=== PATIENT | male | born 1945 | race Caucasian/White ===

== ENCOUNTER → 2016-10-14 | Outpatient (CLI) | payer BC, MEDICARE ==
[2016-10-14 11:27] LABS: MEAN CORPUSCULAR HEMOGLOBIN 31.4 pg (27.0-33.0); MEAN CORPUSCULAR HGB CONC 32.6 g/dl (32.0-36.5); MEAN CORPUSCULAR VOLUME 96.2 fl (80.0-96.0); RED CELL DISTRIBUTION WIDTH 14.5 % (11.5-14.5); WHITE BLOOD COUNT 6.8 K/mm3 (4.0-10.0)
[2016-10-14 11:44] LABS: ALBUMIN 3.2 GM/DL (3.2-5.2); ALBUMIN/GLOBULIN RATIO 1.14 (1.00-1.93); BILIRUBIN,TOTAL 0.4 MG/DL (0.2-1.0); CALCIUM LEVEL 8.5 MG/DL (8.8-10.2); CREATININE FOR GFR 2.64 MG/DL (0.70-1.30); GLOMERULAR FILTRATION RATE 25.8 (>49); POTASSIUM SERUM 4.7 MEQ/L (3.5-5.1)
== END ==
LOC: M WUC 08:50
PROVIDERS: ATTEND Internal Medicine
DX: D69.6 Thrombocytopenia, unspecified (principal); E11.9 Type 2 diabetes mellitus without complications; E78.00 Pure hypercholesterolemia, unspecified; N18.4 Chronic kidney disease, stage 4 (severe); R97.20 Elevated prostate specific antigen [PSA]

== ENCOUNTER → 2017-05-23 | Outpatient (REF) | payer MEDICARE ==
[2017-05-23 12:46] LABS: ALBUMIN 3.4 GM/DL (3.2-5.2); ALBUMIN/GLOBULIN RATIO 1.17 (1.00-1.93); BILIRUBIN,TOTAL 0.5 MG/DL (0.2-1.0); CALCIUM LEVEL 8.8 MG/DL (8.8-10.2); CREATININE FOR GFR 2.98 MG/DL (0.70-1.30); GLOMERULAR FILTRATION RATE 22.4 (>49); MAGNESIUM LEVEL 1.8 MG/DL (1.8-2.4); POTASSIUM SERUM 4.7 MEQ/L (3.5-5.1); TOTAL PROTEIN 6.3 GM/DL (6.4-8.2)
== END ==
LOC: M SFHCPLAZ 08:10
PROVIDERS: ATTEND Internal Medicine
DX: N18.4 Chronic kidney disease, stage 4 (severe) (principal); E11.3213 Type 2 diabetes mellitus with mild nonproliferative diabetic retinopathy with macular edema, bilateral; I12.9 Hypertensive chronic kidney disease with stage 1 through stage 4 chronic kidney disease, or unspecified chronic kidney disease

== ENCOUNTER 2017-07-25 10:51 | Day surgery (SDC) | payer MEDICARE ==
[~2017-07-25] VITALS: Ht 188 cm; Wt 119.7 kg
[~2017-07-25 10:51] MED LIST: ATOR1TAB21 PO; CALC1CAP31 PO; INSUHUMDS PO; INSULANT SC; LISI20TA PO; NADO20TA PO; PIOG45TA4 PO; ZYLO300T4 PO
[2017-07-25] MEDS ORDERED: NS 1,000 ML IV ONE (11:15)
--- NOTE | 2017-07-25 12:34 | ROOR ---
Patient Name: Yfn Sam Procedure Date: 07/25/2017 12:12 PM Date of : 1945 Age: 71 Room: [facility] Gender: Male Note Status: Finalized Procedure: Upper Endoscopy + Biopsies Indications: Heartburn, Exclusion of Erazo's esophagus Providers: Artur Randolph MD Referring MD: Mekhi Hill MD Requesting Provider: Medicines: Monitored Anesthesia Care Complications: No immediate complications. Procedure: Pre-Anesthesia Assessment: - The heart rate, respiratory rate, oxygen saturations, blood pressure, adequacy of pulmonary ventilation, and response to care were monitored throughout the procedure. The Endoscope was introduced through the mouth, and advanced to the second part of duodenum. The upper GI endoscopy was accomplished without difficulty. The patient tolerated the procedure well. Findings: The Z-line was irregular and was found 35 cm from the incisors. Multiple biopsies were obtained with cold forceps for evaluation to rule out Erazo's Esophagus randomly at the gastroesophageal junction. A medium-sized hiatal hernia was present. Localized moderate inflammation characterized by adherent blood, congestion (edema), erosions, erythema and aphthous ulcerations was found in the gastric antrum. Biopsies were taken with a cold forceps for Helicobacter pylori testing. Diffuse mildly erythematous mucosa and with no stigmata of bleeding was found in the first portion of the duodenum. One medium semi-sessile polyp with no bleeding and no stigmata of recent bleeding was found in the gastric antrum. Biopsies were taken with a cold forceps for histology. The exam was otherwise without abnormality. Impression: - Z-line irregular, 35 cm from the incisors. - Medium-sized hiatal hernia. - Chronic gastritis. Biopsied. - Erythematous duodenopathy. - One gastric polyp. Biopsied. - The examination was otherwise normal. - Multiple biopsies were obtained at the gastroesophageal junction. - The examination was otherwise normal. Recommendation: - Await pathology results. - Discharge patient to home. - Continue present medications. - Await pathology results. - Telephone GI clinic for pathology results in 1 week. - Check Portal Online for Path Results.([email or web address] - Return to referring physician. - The findings and recommendations were discussed with the patient's family. Artur Randolph MD Artur Randolph MD 07/25/2017 12:33:39 PM This report has been signed electronically. Number of Addenda: 0 Note Initiated On: 07/25/2017 12:12 PM Estimated Blood Loss: Estimated blood loss: none.
[2017-07-25] MEDS ORDERED: PROPOFOL 200 MG/20 ML VIAL As Ordered ONE (12:42)
[2017-07-25] MEDS ORDERED: LIDOCAINE 2% INJ 100 MG/5 ML SDV (FOR ANES.) As Ordered ONE (12:42)
--- NOTE | 2017-07-25 13:14 | ROOR ---
Patient Name: Yfn Sam Procedure Date: 07/25/2017 12:12 PM Date of : 1945 Age: 71 Room: [facility] Gender: Male Note Status: Finalized Procedure: Total Colonoscopy to Cecum + Cold + Hot Snare Polypectomy + Hemoclips Indications: Positive Cologuard test Providers: Artur Randolph MD Referring MD: Mekhi Hill MD Requesting Provider: Medicines: Monitored Anesthesia Care Complications: No immediate complications. Procedure: Pre-Anesthesia Assessment: - The heart rate, respiratory rate, oxygen saturations, blood pressure, adequacy of pulmonary ventilation, and response to care were monitored throughout the procedure. The Colonoscope was introduced through the anus and advanced to the cecum, identified by appendiceal orifice and ileocecal valve. The colonoscopy was performed without difficulty. The patient tolerated the procedure well. The quality of the bowel preparation was good. Findings: The perianal and digital rectal examinations were normal. Non-bleeding internal hemorrhoids were found during retroflexion. The hemorrhoids were small and Grade I (internal hemorrhoids that do not prolapse). Scattered small-mouthed diverticula were found in the recto-sigmoid colon, sigmoid colon and descending colon. A small polyp was found at 20 cm proximal to the anus. The polyp was sessile. The polyp was removed with a cold snare. Resection and retrieval were complete. A large polyp was found at 25 cm proximal to the anus. The polyp was semi-sessile. The polyp was removed with a hot snare. Resection and retrieval were complete. To prevent bleeding after the polypectomy, two hemostatic clips were successfully placed (MR conditional). There was no bleeding at the end of the procedure. Multiple sessile polyps were found at 40 cm proximal to the anus. The polyps were medium in size. These polyps were removed with a cold snare. Resection and retrieval were complete. To prevent bleeding after the polypectomy, two hemostatic clips were successfully placed (MR conditional). There was no bleeding at the end of the procedure. Multiple sessile polyps were found in the transverse colon, proximal transverse colon, hepatic flexure and ascending colon. The polyps were small in size. These polyps were removed with a cold snare. Resection and retrieval were complete. To prevent bleeding after the polypectomy, one hemostatic clip was successfully placed (MR conditional). There was no bleeding at the end of the procedure. The exam was otherwise without abnormality on direct and retroflexion views. Impression: - Non-bleeding internal hemorrhoids. - Diverticulosis in the recto-sigmoid colon, in the sigmoid colon and in the descending colon. - One small polyp at 20 cm proximal to the anus, removed with a cold snare. Resected and retrieved. - One large polyp at 25 cm proximal to the anus, removed with a hot snare. Resected and retrieved. Clips (MR conditional) were placed. - Multiple medium polyps at 40 cm proximal to the anus, removed with a cold snare. Resected and retrieved. Clips (MR conditional) were placed. - Multiple small polyps in the transverse colon, in the proximal transverse colon, at the hepatic flexure and in the ascending colon, removed with a cold snare. Resected and retrieved. Clip (MR conditional) was placed. - The examination was otherwise normal on direct and retroflexion views. - The exam was otherwise normal to the cecum. Recommendation: - Patient has a contact number available for emergencies. The signs and symptoms of potential delayed complications were discussed with the patient. Return to normal activities tomorrow. Written discharge instructions were provided to the patient. - Discharge patient to home. - Continue present medications. - Await pathology results. - Telephone GI clinic for pathology results in 1 week. - Check Portal Online for Path Results.([email or web address] - Repeat colonoscopy for surveillance based on pathology results. - The findings and recommendations were discussed with the patient's family. Artur Randolph MD Artur Randolph MD 07/25/2017 1:13:33 PM This report has been signed electronically. Number of Addenda: 0 Note Initiated On: 07/25/2017 12:12 PM Estimated Blood Loss: Estimated blood loss: none.
[2017-07-25 13:37] VITALS: BP 122/76
== END 2017-07-25 13:42 | disposition home or self-care (01) ==
LOC: M OPP 10:51
PROVIDERS: ATTEND Internal Medicine Gastroenterology
DX: R19.5 Other fecal abnormalities (principal); D12.5 Benign neoplasm of sigmoid colon; D12.3 Benign neoplasm of transverse colon; D12.2 Benign neoplasm of ascending colon; K64.0 First degree hemorrhoids; K57.30 Diverticulosis of large intestine without perforation or abscess without bleeding; R12 Heartburn; K22.8 Other specified diseases of esophagus; K44.9 Diaphragmatic hernia without obstruction or gangrene; K31.7 Polyp of stomach and duodenum; K31.89 Other diseases of stomach and duodenum; K29.50 Unspecified chronic gastritis without bleeding; I12.9 Hypertensive chronic kidney disease with stage 1 through stage 4 chronic kidney disease, or unspecified chronic kidney disease; E78.5 Hyperlipidemia, unspecified; E11.9 Type 2 diabetes mellitus without complications; M10.9 Gout, unspecified; K21.9 Gastro-esophageal reflux disease without esophagitis; N18.9 Chronic kidney disease, unspecified; N40.1 Benign prostatic hyperplasia with lower urinary tract symptoms; Z88.0 Allergy status to penicillin; Z88.2 Allergy status to sulfonamides; Z88.1 Allergy status to other antibiotic agents; Z79.4 Long term (current) use of insulin; Z79.899 Other long term (current) drug therapy

== ENCOUNTER → 2017-11-19 | Outpatient (REF) | payer MEDICARE ==
[2017-11-19 13:54] LABS: HEMATOCRIT 41.1 % (42.0-52.0); HEMOGLOBIN 13.5 g/dl (14.0-18.0); MEAN CORPUSCULAR HEMOGLOBIN 31.8 pg (27.0-33.0); MEAN CORPUSCULAR HGB CONC 32.8 g/dl (32.0-36.5); MEAN CORPUSCULAR VOLUME 96.7 fl (80.0-96.0); PLATELET COUNT, AUTOMATED 141 10^3/uL (150-450); RED BLOOD COUNT 4.25 10^6/uL (4.30-6.10); RED CELL DISTRIBUTION WIDTH 13.9 % (11.5-14.5); WHITE BLOOD COUNT 7.7 10^3/uL (4.0-10.0)
[2017-11-19 14:06] LABS: ALBUMIN 3.4 GM/DL (3.2-5.2); ALBUMIN/GLOBULIN RATIO 1.13 (1.00-1.93); ALKALINE PHOSPHATASE 67 U/L (45-117); ALT/SGPT 16 U/L (12-78); ANION GAP 8 MEQ/L (8-16); AST/SGOT 16 U/L (7-37); BILIRUBIN,TOTAL 0.5 MG/DL (0.2-1.0); BLOOD UREA NITROGEN 61 MG/DL (7-18); CALCIUM LEVEL 8.8 MG/DL (8.8-10.2); CARBON DIOXIDE LEVEL 25 MEQ/L (21-32); CHLORIDE LEVEL 111 MEQ/L (98-107); CHOLESTEROL LEVEL 132 MG/DL (<200); CHOLESTEROL RISK RATIO 3.882 (<5); CREATININE FOR GFR 2.82 MG/DL (0.70-1.30); GLOMERULAR FILTRATION RATE 23.8 (>42); GLUCOSE, FASTING 83 MG/DL (70-100); HDL CHOLESTEROL 34 MG/DL (>40); LDL CHOLESTEROL 76.8 MG/DL (<100); MAGNESIUM LEVEL 2.1 MG/DL (1.8-2.4); NON-HDL-C 98 MG/DL; SODIUM LEVEL 144 MEQ/L (136-145); TOTAL PROTEIN 6.4 GM/DL (6.4-8.2); TRIGLYCERIDES LEVEL 106 MG/DL (<150); URIC ACID 6.6 MG/DL (3.5-7.2)
[2017-11-19 14:09] LABS: ESTIMATED AVERAGE GLUCOSE 148 MG/DL (60-110); HEMOGLOBIN A1c 6.8 %
[2017-11-19 14:11] LABS: PTH INTACT 71.9 PG/ML (18.5-88.0)
[2017-11-19 14:21] LABS: POTASSIUM SERUM 5.2 MEQ/L (3.5-5.1)
== END ==
LOC: M SFHCPLAZ 08:58
DX: D69.6 Thrombocytopenia, unspecified (principal); E11.3213 Type 2 diabetes mellitus with mild nonproliferative diabetic retinopathy with macular edema, bilateral; E78.00 Pure hypercholesterolemia, unspecified; I12.9 Hypertensive chronic kidney disease with stage 1 through stage 4 chronic kidney disease, or unspecified chronic kidney disease; N18.4 Chronic kidney disease, stage 4 (severe); M10.9 Gout, unspecified
CPT/HCPCS: 83735

== ENCOUNTER → 2018-05-22 | Outpatient (REF) | payer MEDICARE ==
[2018-05-22 10:34] LABS: HEMATOCRIT 43.9 % (42.0-52.0); HEMOGLOBIN 13.9 g/dl (13.5-17.5); MEAN CORPUSCULAR HEMOGLOBIN 31.2 pg (27.0-33.0); MEAN CORPUSCULAR HGB CONC 31.7 g/dl (32.0-36.5); MEAN CORPUSCULAR VOLUME 98.7 fl (80.0-96.0); PLATELET COUNT, AUTOMATED 132 10^3/uL (150-450); RED BLOOD COUNT 4.45 10^6/uL (4.30-6.10)
[2018-05-22 11:02] LABS: ALBUMIN 3.7 GM/DL (3.2-5.2); ALBUMIN/GLOBULIN RATIO 1.23 (1.00-1.93); ALKALINE PHOSPHATASE 64 U/L (45-117); ALT/SGPT 19 U/L (12-78); ANION GAP 7 MEQ/L (8-16); AST/SGOT 26 U/L (7-37); BILIRUBIN,TOTAL 0.5 MG/DL (0.2-1.0); BLOOD UREA NITROGEN 52 MG/DL (7-18); CALCIUM LEVEL 9.1 MG/DL (8.8-10.2); CARBON DIOXIDE LEVEL 27 MEQ/L (21-32); CHLORIDE LEVEL 111 MEQ/L (98-107); CHOLESTEROL LEVEL 146 MG/DL (<200); CHOLESTEROL RISK RATIO 3.842 (<5); CREATININE FOR GFR 2.87 MG/DL (0.70-1.30); GLOMERULAR FILTRATION RATE 23.3 (>42); GLUCOSE, FASTING 56 MG/DL (70-100); HDL CHOLESTEROL 38 MG/DL (>40); LDL CHOLESTEROL 91 MG/DL (<100); MAGNESIUM LEVEL 1.9 MG/DL (1.8-2.4); NON-HDL-C 108 MG/DL; POTASSIUM SERUM 5.3 MEQ/L (3.5-5.1); PROSTATIC SPECIFIC AG MONITOR 5.41 NG/ML (< 4.0); SODIUM LEVEL 145 MEQ/L (136-145); TOTAL PROTEIN 6.7 GM/DL (6.4-8.2); TRIGLYCERIDES LEVEL 84 MG/DL (<150)
[2018-05-22 11:03] LABS: PTH INTACT 72.9 PG/ML (18.5-88.0)
[2018-05-22 11:08] LABS: ESTIMATED AVERAGE GLUCOSE 131 MG/DL (60-110); HEMOGLOBIN A1c 6.2 %
== END ==
LOC: M SFHCPLAZ 08:14
DX: D69.6 Thrombocytopenia, unspecified (principal); E11.3213 Type 2 diabetes mellitus with mild nonproliferative diabetic retinopathy with macular edema, bilateral; E78.00 Pure hypercholesterolemia, unspecified; N18.4 Chronic kidney disease, stage 4 (severe)
CPT/HCPCS: 83735

== ENCOUNTER → 2018-06-14 | Outpatient (REF) | payer MEDICARE ==
[2018-06-14 12:29] LABS: PROSTATIC SPECIFIC AG MONITOR 4.63 NG/ML (< 4.0)
== END ==
LOC: M SFHCPLAZ 09:14
DX: R97.20 Elevated prostate specific antigen [PSA] (principal)
CPT/HCPCS: 84153

== ENCOUNTER 2018-07-17 07:15 | Day surgery (SDC) | payer MEDICARE ==
[2018-07-17] MEDS: NS 1,000 ML IV (06:00)
[2018-07-17] MEDS ORDERED: PROPOFOL 500 MG/50 ML VIAL As Ordered (07:40)
[2018-07-17] MEDS ORDERED: LIDOCAINE 2% INJ 100 MG/5 ML SDV (FOR ANES.) As Ordered (07:41)
[2018-07-17] MEDS ORDERED: ePHEDrine SULFATE 25 MG/5 ML(5MG/ML) SYRINGE As Ordered (09:04)
== END 2018-07-17 09:54 | disposition home or self-care (01) ==
LOC: M OPP 07:15
DX: Z86.010 Personal history of colon polyps (principal); K64.0 First degree hemorrhoids; D12.2 Benign neoplasm of ascending colon; D12.6 Benign neoplasm of colon, unspecified; R12 Heartburn; K22.70 Barrett's esophagus without dysplasia; K22.8 Other specified diseases of esophagus; K44.9 Diaphragmatic hernia without obstruction or gangrene; K22.10 Ulcer of esophagus without bleeding
CPT/HCPCS: 45385

== ENCOUNTER → 2018-11-19 | Outpatient (REF) | payer MEDICARE ==
[~2018-11-19] MED LIST changes: +FINA5TAB2 PO; -INSUHUMDS PO; +INSUHUMDS SQ; +PIOG1TAB55 PO; -PIOG45TA4 PO; +PROT20TA11 PO; -ZYLO300T4 PO; +ZYLO300T6 PO
[2018-11-19 10:36] LABS: HEMATOCRIT 40.6 % (42.0-52.0); MEAN CORPUSCULAR VOLUME 96.9 fl (80.0-96.0); PLATELET COUNT, AUTOMATED 131 10^3/uL (150-450); RED BLOOD COUNT 4.19 10^6/uL (4.30-6.10); WHITE BLOOD COUNT 6.7 10^3/uL (4.0-10.0)
[2018-11-19 10:59] LABS: HEMOGLOBIN A1c 6.2 %
[2018-11-19 11:14] LABS: MALB URINE SIEMENS 11.8 MG/L; MAU/CREAT RATIO 11.2 MCG/MG (0.0-30.0)
[2018-11-19 12:37] LABS: ALBUMIN 3.3 GM/DL (3.2-5.2); BILIRUBIN,TOTAL 0.5 MG/DL (0.2-1.0); CALCIUM LEVEL 8.7 MG/DL (8.8-10.2); CHOLESTEROL RISK RATIO 3.916 (<5); CREATININE FOR GFR 3.41 MG/DL (0.70-1.30); MAGNESIUM LEVEL 1.6 MG/DL (1.8-2.4); POTASSIUM SERUM 4.6 MEQ/L (3.5-5.1); PROSTATIC SPECIFIC AG MONITOR 2.82 NG/ML (< 4.00); PTH INTACT 68.5 PG/ML (18.5-88.0); TOTAL PROTEIN 6.3 GM/DL (6.4-8.2); URIC ACID 7.3 MG/DL (3.5-7.2)
== END ==
LOC: M SFHCPLAZ 08:02
PROVIDERS: ATTEND Internal Medicine
DX: D69.6 Thrombocytopenia, unspecified (principal); I12.9 Hypertensive chronic kidney disease with stage 1 through stage 4 chronic kidney disease, or unspecified chronic kidney disease; E11.3213 Type 2 diabetes mellitus with mild nonproliferative diabetic retinopathy with macular edema, bilateral; E78.00 Pure hypercholesterolemia, unspecified; N18.4 Chronic kidney disease, stage 4 (severe); M10.9 Gout, unspecified; R97.20 Elevated prostate specific antigen [PSA]

== ENCOUNTER → 2018-12-27 | Outpatient (REF) | payer MEDICARE ==
[2018-12-27 10:41] LABS: ALBUMIN 3.3 GM/DL (3.2-5.2); BILIRUBIN,TOTAL 0.5 MG/DL (0.2-1.0); CALCIUM LEVEL 8.2 MG/DL (8.8-10.2); CREATININE FOR GFR 2.81 MG/DL (0.70-1.30); GLOMERULAR FILTRATION RATE 23.8 (>42); MAGNESIUM LEVEL 1.7 MG/DL (1.8-2.4); POTASSIUM SERUM 4.4 MEQ/L (3.5-5.1); TOTAL PROTEIN 6.3 GM/DL (6.4-8.2)
== END ==
LOC: M SFHCPLAZ 08:19
PROVIDERS: ATTEND Internal Medicine
DX: I12.9 Hypertensive chronic kidney disease with stage 1 through stage 4 chronic kidney disease, or unspecified chronic kidney disease (principal); N18.4 Chronic kidney disease, stage 4 (severe)

== ENCOUNTER → 2019-04-17 | Outpatient (REF) | payer MEDICARE ==
[~2019-04-17] MED LIST changes: -LISI20TA PO; +LISI20TA19 PO
[2019-04-17 11:15] LABS: HEMATOCRIT 37.8 % (42.0-52.0); HEMOGLOBIN 12.1 g/dl (13.5-17.5); MEAN CORPUSCULAR HEMOGLOBIN 32.1 pg (27.0-33.0); MEAN CORPUSCULAR VOLUME 100.3 fl (80.0-96.0); PLATELET COUNT, AUTOMATED 116 10^3/uL (150-450); RED BLOOD COUNT 3.77 10^6/uL (4.30-6.10); WHITE BLOOD COUNT 6.4 10^3/uL (4.0-10.0)
[2019-04-17 11:36] LABS: PROSTATIC SPECIFIC AG MONITOR 1.47 NG/ML (< 4.00); URIC ACID 5.4 MG/DL (3.5-7.2)
[2019-04-17 11:42] LABS: PTH INTACT 71.7 PG/ML (18.5-88.0)
[2019-04-17 14:38] LABS: HEMOGLOBIN A1c 6.1 %
[2019-04-18 10:54] LABS: ALBUMIN 3.5 GM/DL (3.2-5.2); BILIRUBIN,TOTAL 0.5 MG/DL (0.2-1.0); CREATININE FOR GFR 2.69 MG/DL (0.70-1.30); POTASSIUM SERUM 5.4 MEQ/L (3.5-5.1); TOTAL PROTEIN 6.3 GM/DL (6.4-8.2)
== END ==
LOC: M SFHCPLAZ 08:24
PROVIDERS: ATTEND Internal Medicine
DX: D69.6 Thrombocytopenia, unspecified (principal); E11.3213 Type 2 diabetes mellitus with mild nonproliferative diabetic retinopathy with macular edema, bilateral; N18.4 Chronic kidney disease, stage 4 (severe); M10.9 Gout, unspecified; R97.20 Elevated prostate specific antigen [PSA]

== ENCOUNTER → 2019-05-01 | Outpatient (CLI) | payer MEDICARE ==
--- NOTE | 2019-05-01 13:48 | REP ---
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 Please evaluate for this by MRCP. No comparison imaging is available. MRCP technique: Axial and coronal T2-weighted scans are acquired. In and out of phase axial images are acquired and MRCP acquisition is performed. Maximal intensity projection images are generated and viewed rotationally. MRCP findings: T2-weighted scans demonstrate two small sub-centimeter cysts in the spleen, the largest of which is in the inferior spleen tip measuring 9 mm in diameter. There is a 8 mm cyst in the left lobe of the liver. No other focal hepatic or splenic lesion. There is no evidence of ascites or pleural effusion. No filling defect is seen within the gallbladder. No biliary ductal dilation is observed. No adrenal lesion is seen on either side. There is a branching fluid-filled process consistent with dilated ducts or intraductal mucinous neoplasm in the pancreatic body, to the left of midline. These lobulated small cystic areas show low T1 and high T2 signal intensity. They occupy an area measuring up to 2.5 cm in length along the course of the pancreatic body although each cystic component is smaller than this, the largest of the cystic areas measures 1.3 cm in greatest diameter. There is another tiny cystic area in the uncinate lobe of the head of the pancreas which is less conspicuous and measures 9 mm in greatest diameter. The distal tail of the pancreas is somewhat atrophic. No soft tissue mass is appreciated in the pancreas. There is no visible adenopathy. Some mild cortical atrophy is seen in the kidneys. Impression: There is a small branching fluid signal intensity lesion in the distal body of the pancreas consistent with the history of intraductal papillary mucinous neoplasm seen by endoscopic ultrasound. Measurements as above. There is a second 9 mm cystic area in the uncinate process in the head of the pancreas as well. No soft tissue mass is seen. No biliary ductal dilation. No other pancreatic ductal dilation seen. There are small subcentimeter cysts in the left lobe of the liver and in the spleen. Electronically Signed by Ken De La Rosa MD 05/01/2019 01:41 P
== END ==
LOC: M RAD 10:06
PROVIDERS: ATTEND Internal Medicine Gastroenterology
DX: R93.89 Abnormal findings on diagnostic imaging of other specified body structures (principal)

== ENCOUNTER → 2019-10-13 | Outpatient (CLI) | payer MEDICARE ==
[2019-10-13 12:01] LABS: BASO % 0.6 % (0.0-1.0); EOS # 0.2 10^3/uL (0.0-0.5); EOS % 3.1 % (0.0-3.0); HEMATOCRIT 37.1 % (42.0-52.0); LYMPH % 30.5 % (24.0-44.0); MEAN CORPUSCULAR HEMOGLOBIN 31.5 pg (27.0-33.0); MEAN CORPUSCULAR HGB CONC 32.3 g/dl (32.0-36.5); MEAN CORPUSCULAR VOLUME 97.4 fl (80.0-96.0); MONO # 0.5 10^3/uL (0.0-0.8); MONO % 8.3 % (0.0-5.0); NEUTROPHILS # 3.7 10^3/uL (1.5-8.5); NEUTROPHILS % 57.3 % (36.0-66.0); PLATELET COUNT, AUTOMATED 150 10^3/uL (150-450); RED BLOOD COUNT 3.81 10^6/uL (4.30-6.10); WHITE BLOOD COUNT 6.5 10^3/uL (4.0-10.0)
[2019-10-13 12:28] LABS: ALBUMIN 3.3 GM/DL (3.2-5.2); BILIRUBIN,TOTAL 0.4 MG/DL (0.2-1.0); CALCIUM LEVEL 9.1 MG/DL (8.8-10.2); CHOLESTEROL RISK RATIO 3.945 (<5); CREATININE FOR GFR 2.89 MG/DL (0.70-1.30); MAGNESIUM LEVEL 1.8 MG/DL (1.8-2.4); POTASSIUM SERUM 4.6 MEQ/L (3.5-5.1); PTH INTACT 92.7 PG/ML (18.5-88.0); TOTAL PROTEIN 6.3 GM/DL (6.4-8.2)
[2019-10-13 13:09] LABS: HEMOGLOBIN A1c 6.4 %
== END ==
LOC: M PLALAB 08:41
PROVIDERS: ATTEND Internal Medicine
DX: I12.9 Hypertensive chronic kidney disease with stage 1 through stage 4 chronic kidney disease, or unspecified chronic kidney disease (principal); N18.4 Chronic kidney disease, stage 4 (severe); E11.3213 Type 2 diabetes mellitus with mild nonproliferative diabetic retinopathy with macular edema, bilateral; E78.00 Pure hypercholesterolemia, unspecified; D69.6 Thrombocytopenia, unspecified

== ENCOUNTER → 2020-06-22 | Outpatient (CLI) | payer MEDICARE ==
[~2020-06-22] MED LIST changes: -LISI20TA19 PO; +LISI20TA35 PO
[2020-06-22 15:02] LABS: CREATININE FOR GFR 2.8 MG/DL (0.70-1.30); GLOMERULAR FILTRATION RATE 23.8 (>42); POTASSIUM SERUM 5.6 MEQ/L (3.5-5.1)
[2020-06-22 15:04] LABS: PTH INTACT 78.8 PG/ML (18.5-88.0)
== END ==
LOC: M PLALAB 09:16
PROVIDERS: ATTEND Internal Medicine
DX: I12.9 Hypertensive chronic kidney disease with stage 1 through stage 4 chronic kidney disease, or unspecified chronic kidney disease (principal); N18.4 Chronic kidney disease, stage 4 (severe)

== ENCOUNTER → 2020-11-03 | Outpatient (REF) | payer MEDICARE ==
[2020-11-03 14:05] LABS: BASO # 0.1 10^3/uL (0.0-0.2); BASO % 0.9 % (0.0-1.0); EOS # 0.4 10^3/uL (0.0-0.5); EOS % 6.3 % (0.0-3.0); HEMATOCRIT 36.6 % (42.0-52.0); HEMOGLOBIN 11.7 g/dl (13.5-17.5); LYMPH # 2.1 10^3/uL (1.5-5.0); LYMPH % 29.8 % (24.0-44.0); MEAN CORPUSCULAR HEMOGLOBIN 32.1 pg (27.0-33.0); MEAN CORPUSCULAR VOLUME 100.3 fl (80.0-96.0); MONO # 0.6 10^3/uL (0.0-0.8); MONO % 8.9 % (2.0-8.0); NEUTROPHILS # 3.8 10^3/uL (1.5-8.5); PLATELET COUNT, AUTOMATED 127 10^3/uL (150-450); RED BLOOD COUNT 3.65 10^6/uL (4.30-6.10)
[2020-11-03 14:16] LABS: ALBUMIN 3.2 GM/DL (3.2-5.2); BILIRUBIN,TOTAL 0.4 MG/DL (0.2-1.0); CALCIUM LEVEL 8.8 MG/DL (8.8-10.2); GLOMERULAR FILTRATION RATE 21.9 (>42); MAGNESIUM LEVEL 1.8 MG/DL (1.8-2.4); POTASSIUM SERUM 4.8 MEQ/L (3.5-5.1); PROSTATIC SPECIFIC AG MONITOR 1.61 NG/ML (< 4.00); PTH INTACT 66.1 PG/ML (18.5-88.0); TOTAL PROTEIN 5.8 GM/DL (6.4-8.2)
[2020-11-03 15:01] LABS: CREATININE, URINE 99.7 MG/DL
[2020-11-03 15:26] LABS: HEMOGLOBIN A1c 5.7 %
== END ==
LOC: M PLALAB 08:50
PROVIDERS: ATTEND Internal Medicine
DX: D69.6 Thrombocytopenia, unspecified (principal); I12.9 Hypertensive chronic kidney disease with stage 1 through stage 4 chronic kidney disease, or unspecified chronic kidney disease; E11.3213 Type 2 diabetes mellitus with mild nonproliferative diabetic retinopathy with macular edema, bilateral; E78.00 Pure hypercholesterolemia, unspecified; N18.4 Chronic kidney disease, stage 4 (severe); R97.20 Elevated prostate specific antigen [PSA]

== ENCOUNTER → 2021-01-19 | Outpatient (CLI) | payer MEDICARE ==
[~2021-01-19] MED LIST changes: +ASPI81TA26 PO
== END ==
LOC: M LABSMTC 09:48
PROVIDERS: ATTEND Anesthesiology
DX: Z01.812 Encounter for preprocedural laboratory examination (principal); Z20.828 Contact with and (suspected) exposure to other viral communicable diseases

== ENCOUNTER 2021-01-24 06:24 | Day surgery (SDC) | payer MEDICARE ==
[~2021-01-24] VITALS: Ht 188 cm; Wt 108.9 kg
[2021-01-24] MEDS ORDERED: DUOVISC (0.50ML VISCOAT/0.55ML PROVISC) OPHTH KIT As Ordered ONE (06:36)
[2021-01-24] MEDS ORDERED: POVIDONE-IODINE 5% OPHTH PREP SOL 30ML As Ordered ONE (06:36)
[2021-01-24] MEDS ORDERED: OFLOXACIN 0.3 % (OCUFLOX) OPTH SOL 5ML OD ONE (07:00)
[2021-01-24] MEDS ORDERED: PROPARACAINE 0.5% OPHTH SOL 15ML OD ONE (07:00)
[2021-01-24] MEDS ORDERED: PHENYLEPHRINE 2.5% OPHTH SOL 2ML OD ONE (07:00)
[2021-01-24] MEDS ORDERED: TROPICAMIDE 1% OPHTH SOLN 2ML OD ONE (07:00)
[2021-01-24] MEDS ORDERED: MIDAZOLAM INJ 2MG/2ML VIAL (J2250 PER 1MG) As Ordered ONE (07:09)
[2021-01-24] MEDS ORDERED: fentaNYL 100 MCG/2 ML INJECTION (J3010) As Ordered ONE (07:09)
[2021-01-24] MEDS ORDERED: BSS IRR 500ML/OMIDRIA 4ML IRR BAG (OR ONLY) As Ordered ONE (07:15)
[2021-01-24] MEDS ORDERED: hydrALAZINE 20MG/ML 1ML VIAL (J0360 PER 20MG) As Ordered ONE (08:07)
[2021-01-24 08:40] VITALS: BP 197/88
--- NOTE | 2021-01-25 07:56 | RO ---
OPERATIVE NOTE DATE OF OPERATION: 01/24/2021 PREOPERATIVE DIAGNOSIS: 1. Visually significant nuclear sclerotic cataract, right eye. POSTOPERATIVE DIAGNOSIS: 1. Visually significant nuclear sclerotic cataract, right eye. PROCEDURE: 1. Cataract extraction with use of phacoemulsification, and placement of intraocular lens, AU00T0, 16.5 D, right eye. SURGEON: Bartolo Randolph DO ANESTHESIA: Local (Omidria with MAC) COMPLICATIONS: None POSTOPERATIVE CONDITION: Stable INDICATIONS FOR SURGERY: 1. Blurred vision affecting patient's activities of daily living. DESCRIPTION OF PROCEDURE: The patient was seen in the preoperative area and properly identified. The correct operative eye was identified and marked. The patient received topical anesthetic, antibiotics, and topical dilating drops. The patient was then transferred to the operating room. The correct side was re-identified and a time-out was performed. The eye was prepped and draped in a sterile fashion. The eyelids were isolated with Tegaderm tape and the lids were held open with an adjustable speculum. A 1.0mm paracentesis incision was made. Omidria was then injected into the anterior chamber. Viscoelastic was then injected into the anterior chamber through the paracentesis. Using a 2.4mm sharp-tipped keratome, the anterior chamber was entered via a temporal clear cornea incision. A continuous curvilinear capsulorrhexis was created with Utrata forceps. Hydrodissection was performed with BSS on a blunt cannula until the nucleus was able to rotate freely. The crystalline lens was phacoemulsified and aspirated. Irrigation/aspiration was used to remove the cortical material Cohesive viscoelastic was placed into the capsular bag to deepen it. The implant was placed into the capsular bag and allowed to unfold. Placement was confirmed by visualizing the anterior capsulorrhexis. Irrigation/aspiration was used to remove the viscoelastic. The clear corneal incision was hydrated with BSS on a blunt cannula. The lens was well positioned. Intracameral antibiotic was injected into the anterior chamber. The incisions were then tested for leaks and found to be negative. The eye was then palpated for appropriate pressure and adjusted accordingly with BSS. The eyelid speculum was then carefully removed. A shield was placed over the eye. The patient tolerated the procedure well and was discharge to the recovery unit in a stable condition.
== END 2021-01-24 08:54 | disposition home or self-care (01) ==
LOC: M SDC 06:24
PROVIDERS: ATTEND Ophthalmology
DX: H25.11 Age-related nuclear cataract, right eye (principal); E11.9 Type 2 diabetes mellitus without complications; E78.5 Hyperlipidemia, unspecified; K21.9 Gastro-esophageal reflux disease without esophagitis; Z79.4 Long term (current) use of insulin; Z79.82 Long term (current) use of aspirin; Z88.0 Allergy status to penicillin; Z88.2 Allergy status to sulfonamides
CPT/HCPCS: 66984; J0360; J1097; J2250; J3010; V2632

== ENCOUNTER → 2021-02-23 | Outpatient (CLI) | payer MEDICARE | LOC: M LABSMTC 12:17 | PROVIDERS: ATTEND Pediatrics | DX: Z20.822 Contact with and (suspected) exposure to COVID-19 (principal) ==

== ENCOUNTER → 2021-05-17 | Outpatient (CLI) | payer MEDICARE ==
[2021-05-17 11:24] LABS: BASO % 0.5 % (0.0-1.0); EOS # 0.2 10^3/uL (0.0-0.5); EOS % 2.9 % (0.0-3.0); HEMATOCRIT 40.1 % (42.0-52.0); HEMOGLOBIN 12.8 g/dl (13.5-17.5); LYMPH # 2.3 10^3/uL (1.5-5.0); LYMPH % 29.5 % (24.0-44.0); MEAN CORPUSCULAR HEMOGLOBIN 31.8 pg (27.0-33.0); MEAN CORPUSCULAR HGB CONC 31.9 g/dl (32.0-36.5); MEAN CORPUSCULAR VOLUME 99.5 fl (80.0-96.0); MONO # 0.7 10^3/uL (0.0-0.8); MONO % 9.3 % (2.0-8.0); NEUTROPHILS # 4.5 10^3/uL (1.5-8.5); NEUTROPHILS % 57.5 % (36.0-66.0); PLATELET COUNT, AUTOMATED 141 10^3/uL (150-450); RED BLOOD COUNT 4.03 10^6/uL (4.30-6.10); WHITE BLOOD COUNT 7.8 10^3/uL (4.0-10.0)
[2021-05-17 12:07] LABS: ALBUMIN 3.3 GM/DL (3.2-5.2); BILIRUBIN,TOTAL 0.6 MG/DL (0.2-1.0); CALCIUM LEVEL 9.3 MG/DL (8.8-10.2); CREATININE FOR GFR 2.77 MG/DL (0.70-1.30); GLOMERULAR FILTRATION RATE 24.1 (>42); TOTAL PROTEIN 6.3 GM/DL (6.4-8.2); URIC ACID 6.3 MG/DL (3.5-7.2)
[2021-05-17 12:13] LABS: MALB URINE SIEMENS 38.3 MG/L; MAU/CREAT RATIO 37.9 MCG/MG (0.0-30.0)
== END ==
LOC: M PLALAB 08:47
PROVIDERS: ATTEND Internal Medicine
DX: I12.9 Hypertensive chronic kidney disease with stage 1 through stage 4 chronic kidney disease, or unspecified chronic kidney disease (principal); E11.3213 Type 2 diabetes mellitus with mild nonproliferative diabetic retinopathy with macular edema, bilateral; D69.6 Thrombocytopenia, unspecified; N18.4 Chronic kidney disease, stage 4 (severe); M10.9 Gout, unspecified; E11.22 Type 2 diabetes mellitus with diabetic chronic kidney disease

== ENCOUNTER → 2021-07-11 | Outpatient (CLI) | payer MEDICARE ==
[~2021-07-11] MED LIST changes: +ALLO300T2 PO
== END ==
LOC: M LABSMTC 10:04
PROVIDERS: ATTEND Anesthesiology
DX: Z01.812 Encounter for preprocedural laboratory examination (principal); Z20.822 Contact with and (suspected) exposure to COVID-19

== ENCOUNTER 2021-07-15 08:07 | Day surgery (SDC) | payer MEDICARE ==
[~2021-07-15] VITALS: Ht 188 cm; Wt 112.5 kg
[~2021-07-15 08:07] MED LIST changes: +NS 1,000 ML IV ONE
--- OUTSIDE RECORDS SUMMARY | 2021-07-15 08:11 | CCD ---
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, l eye 11/13/2018 - 12:00AM Bartolo Randolph DO Active Nexdtve age-related mclr degn, right eye, early dry stage - 12:00AM Bartolo Randolph DO Active Type 2 diab with mod nonp rtnop with macular edema, r eye - 12:00AM Bartolo Randolph DO Active Type 2 diabetes with mild nonp rtnop with macular dana a, bi 04/02/2018 - 12:00AM Bartolo Randolph DO Inactive 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 03/22/2018 - 12:00AM Bartolo Randolph DO Inactive Pseudophakia 03/22/2018 - 12:00AM Bartolo Randolph DO Active 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 02/15/2017 - 12:00AM Bartolo Randolph DO Inactive Cataract Senile Nuclear 02/15/2017 - 12:00AM Bartolo [facility] DO Inactive Cataract Senile Cortical Bilateral 07/18/2016 - 12:00AM Bartolo Randolph DO Inactive Essential Hypertension 07/18/2016 - 12:00AM Jason Elizondo MD, FACS Active Taking Medication For Diabetes Long-term Use of Insulin 07/18/20 16 - 12:00AM Jason Liu MD, FACS Active 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 03/04/2015 - 12:00AM Bartolo Randolph DO Inactive Note: Unchanged - right eye Macular Degeneration Nonexudative Dry 03/04/2015 - 12:00AM Bartolo Randolph DO Inactive Note: Unchanged - of the rig ht eye Type 2 Diab W/ Diab Retinopathy Mod Nonproliferative W / Macular Edema 02/04/2015 - 12:00AM Bartolo Randolph DO Inactive Note: Unchanged - of the lef t eye Retina Edema Left Eye 02/04/2015 - 12:00AM Bartolo thornton DO Inactive Note: Unchanged - 0.5+ Dermatochalasis Both Eyelids 06/04/2014 - 12:00AM Jason Liu MD, FACS Active Note: Unchanged Blepharitis Both Eyelids 11/19/2013 - 12:00AM Jason Liu MD, FACS Inactive Note: Resolved Cataract Senile Cortical Anterior 11/19/2013 - 12:00AM Bartolo Randolph DO Inactive Note: Unchanged - of both ey es Diabetes Mellitus Secondary with Ophthalmic Manifestations 0 11/19/2013 - 12:00AM Bartolo Randolph DO Inactive Note: Unchanged Diabetes with Diabetic Retinopathy Nonproliferative Mi ld Both Eyes 11/19/2013 - 12:00AM Jason Liu MD, FACS Inactive Note: Unchanged Retinopathy Hypertensive Both Eyes 11/19/2013 - 12:00AM Jason Liu MD, FACS Active Note: Unchanged Cataract Senile Posterior Subcapsular Polar 11/19/2013 - 12:00AM Bartolo Randolph DO Active Note: Unchanged Dry Eye Syndrome Both Eyes 11/19/2013 - 12:00AM Jason Liu MD, FACS Active Note: Unchanged Vitreous Floaters Both Eyes 11/19/2013 - 12:00AM Jason Liu MD, FACS Active Note: Unchanged Plan of Treatment Referrals To Diagnosis Referral to [facility] Jason Liu MD, FACS Type 2 diab with mod nonp rtnop with macular edema, l eye Referral to Dr. Tomasa Liu MD, FACS Age-r elated nuclear cataract, bilateral Findings Encounter Date Requested Referred to: Dr. Pettit (letter sent elec tronically) 6 Month Follow-Up with Jason Liu MD, FACS 02/15/2017 Assessments Includes: Assessments for all patient encounters Findings Encounter Date 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 ight eye 1 Year Follow-Up with Bartolo Tomasa DO 11/30/2020 Long-term use of insulin 1 Year Follow-Up with Bartolo brady DO 11/30/2020 Posterior subcapsular polar senile cataract 1 Year Fol low-Up with Bartolo Tomasa DO 11/30/2020 Pseudophakia 1 Year Follow-Up with Bartolo Tomasa DO 11/30/2020 Type 2 diabetes with moderate nonprolife rative diabetic retinopathy with macular edema 1 Year Follow-Up with Bartolo Tomasa DO 11/30/2020 Type 2 diabetes with moderate nonprolife rative diabetic retinopathy without macular edema 1 Year Follow-Up with Bartolo Tomasa DO 11/30/2020 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 ight eye 6 Month Follow-Up with Bartolo Tomasa DO 05/29/2019 Long-term use of insulin 6 Month Follow-Up with Bartolo Hortencia go DO 05/29/2019 Posterior subcapsular polar senile cataract 6 Month Fo llow-Up with Bartolo Tomasa DO 05/29/2019 Pseudophakia 6 Month Follow-Up with Bartolo Tomasa DO 05/29/2019 Type 2 diabetes with moderate nonprolife rative diabetic retinopathy with macular edema 6 Month Follow-Up with Bartolo Tomasa DO 05/29/2019 Type 2 diabetes with moderate nonprolife rative diabetic retinopathy without macular edema 6 Month Follow-Up with Bartolo Tomasa DO 05/29/2019 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 ight eye 8 Month Follow-Up with Bartolo Tomasa DO 11/13/2018 Long-term use of insulin 8 Month Follow-Up with Bartolodeanna go DO 11/13/2018 Posterior subcapsular polar senile cataract 8 Month Fo llow-Up with Bartolo Tomasa DO 11/13/2018 Pseudophakia 8 Month Follow-Up with Bartolo Tomasa DO 11/13/2018 Type 2 diabetes with moderate nonprolife rative diabetic retinopathy with macular edema 8 Month Follow-Up with Bartolo Tomasa DO 11/13/2018 Type 2 diabetes with moderate nonprolife rative diabetic retinopathy without macular edema 8 Month Follow-Up with Bartolo Randolph DO 11/13/2018 Dry eye syndrome 8 Month Follow-Up with Bartolo Randolph DO 03/22/2018 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 ight eye 8 Month Follow-Up with Bartolo Randolph DO 03/22/2018 Essential hypertension 8 Month Follow-Up with Bartolo Tracey vanen DO 03/22/2018 Long-term use of insulin 8 Month Follow-Up with Bartolo go DO 03/22/2018 Posterior subcapsular polar senile cataract 8 Month Fo llow-Up with Bartolo Randolph DO 03/22/2018 Pseudophakia 8 Month Follow-Up with Bartolo Randolph DO 03/22/2018 Type 2 diabetes with mild nonproliferative diabetic re tinopathy 8 Month Follow- Up with Bartolo Randolph DO 03/22/2018 Bilateral cortical senile cataract PRE OP WITH TESTING with Bartolo Burnettstein DO 06/13/2017 Posterior subcapsular polar senile cataract PRE OP WIT H TESTING with Bartolo Tomasa DO 06/13/2017 Cortical senile cataract Cataract Evaluation with Bartolo Ashvin bashir DO 06/06/2017 Posterior subcapsular polar senile cataract Cataract E valuation with Bartolo Burnettstein DO 06/06/2017 Bilateral cortical senile cataract 6 Month Follow-Up w ith Jason Liu MD, FACS 02/15/2017 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 ight eye 6 Month Follow-Up with Jason Liu MD, FACS 02/15/2017 Essential hypertension 6 Month Follow-Up with Jason Smith MD, FACS 02/15/2017 Long-term use of insulin 6 Month Follow-Up with Jason Triplett MD, FACS 02/15/2017 Nuclear senile cataract 6 Month Follow-Up with Jason Leonard MD, FACS 02/15/2017 Posterior subcapsular polar senile cataract 6 Month Fo llow-Up with Jason Liu MD, FACS 02/15/2017 Type 2 diabetes with moderate nonprolife rative diabetic retinopathy with macular edema 6 Month Follow-Up with Jason Liu MD, FACS Type 2 diabetes with moderate nonprolife rative diabetic retinopathy without macular edema 6 Month Follow-Up with Jason Liu MD, FACS Bilateral cortical senile cataract 9 Month Follow-Up w ith Jason Liu MD, FACS 07/18/2016 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 ight eye 9 Month Follow-Up with Jason Liu MD, FACS 07/18/2016 Essential hypertension 9 Month Follow-Up with Jason Smith MD, FACS 07/18/2016 History of nicotine dependence 9 Month Follow-Up with Jason Liu MD, FACS 07/18/2016 Long-term use of insulin 9 Month Follow-Up with Jason Triplett MD, FACS 07/18/2016 Posterior subcapsular polar senile cataract 9 Month Fo llow-Up with Jason Liu MD, FACS 07/18/2016 Type 2 diabetes with moderate nonprolife rative diabetic retinopathy with macular edema 9 Month Follow-Up with Jason Liu MD, FACS Type 2 diabetes with moderate nonprolife rative diabetic retinopathy without macular edema 9 Month Follow-Up with Jason Liu MD, FACS Bilateral cortical senile cataract 7 Month Follow-Up w ith Jason Liu MD, FACS 10/06/2015 Dry nonexudative macular degeneration 7 Month Follow-U p with Jason Liu MD, FACS 10/06/2015 Essential hypertension 7 Month Follow-Up with Jason Smith MD, FACS 10/06/2015 Long-term use of insulin 7 Month Follow-Up with Jason Triplett MD, FACS 10/06/2015 Posterior subcapsular polar senile cataract 7 Month Fo llow-Up with Jason Liu MD, FACS 10/06/2015 Type 2 diabetes with moderate nonprolife rative diabetic retinopathy with macular edema left eye 7 Month Follow-Up with Jason Liu MD, FACS Type 2 diabetes with moderate nonprolife rative diabetic retinopathy without macular edema right eye 7 Month Follow-Up with Jason Liu MD, FACS 10/06/2015 Anterior cortical senile cataract both eyes 6 Month F ollow-Up with Jason Liu MD, FACS 02/04/2015 Dermatochalasis of both eyes 6 Month Follow-Up with Twan Liu MD, FACS 02/04/2015 Dry eye syndrome of both eyes 6 Month Follow-Up with Dino Liu MD, FACS 02/04/2015 Dry nonexudative macular degeneration of the right ey e 6 Month Follow-Up with Jason Liu MD, FACS 02/04/2015 Hypertensive retinopathy of both eyes 6 Month Follow-U p with Jason Liu MD, FACS 02/04/2015 No rubeosis iridis of both eyes 6 Month Follow-Up with Jason Liu MD, FACS 02/04/2015 Posterior subcapsular polar senile cataract both eyes 6 Month Follow-Up with Jason Liu MD, FACS 02/04/2015 Secondary diabetes mellitus with ophthalmic manifestat ions 6 Month Follow-Up with Jason Liu MD, FACS 02/04/2015 Type 2 diabetes with moderate nonprolife rative diabetic retinopathy with macular edema left eye 6 Month Follow-Up with Jason Liu MD, FACS Type 2 diabetes with moderate nonprolife rative diabetic retinopathy without macular edema right eye 6 Month Follow-Up with Jason Liu MD, FACS 02/04/2015 Vitreous floaters in both eyes 6 Month Follow-Up with Jason Liu MD, FACS 02/04/2015 Anterior cortical senile cataract of both eyes 6 Josué h Follow-Up with Jason Liu MD, FACS 06/04/2014 Dermatochalasis of both eyes 6 Month Follow-Up with Twan Liu MD, FACS 06/04/2014 Dry eye syndrome of both eyes 6 Month Follow-Up with Dino Liu MD, FACS 06/04/2014 Hypertensive retinopathy of both eyes 6 Month Follow-U p with Jason Liu MD, FACS 06/04/2014 Mild nonproliferative diabetic retinopathy of both eye s 6 Month Follow-Up with Jason Liu MD, FACS 06/04/2014 No diabetic macular edema 6 Month Follow-Up with Jason Buchanan MD, FACS 06/04/2014 No rubeosis iridis 6 Month Follow-Up with Jason mclaughlin MD, FACS 06/04/2014 Posterior subcapsular polar senile cataract of both e yes 6 Month Follow-Up with Jason Liu MD, FACS 06/04/2014 Secondary diabetes mellitus with ophthalmic manifestat ions 6 Month Follow-Up with Jason Liu MD, FACS 06/04/2014 Vitreous floaters in both eyes 6 Month Follow-Up with Jason Liu MD, FACS 06/04/2014 Anterior cortical senile cataract of both eyes 1 Year Follow-Up with Jason Liu MD, FACS 11/19/2013 Blepharitis in both eyes 1 Year Follow-Up with Jason Leonard MD, FACS 11/19/2013 Dry eye syndrome of both eyes 1 Year Follow-Up with Twan Liu MD, FACS 11/19/2013 Hypertensive retinopathy of both eyes 1 Year Follow-Up with Jason Liu MD, FACS 11/19/2013 Mild nonproliferative diabetic retinopathy of both eye s 1 Year Follow-Up with Jason Liu MD, FACS 11/19/2013 No diabetic macular edema 1 Year Follow-Up with Jason Triplett MD, FACS 11/19/2013 No rubeosis iridis of both eyes 1 Year Follow-Up with Jason Liu MD, FACS 11/19/2013 Posterior subcapsular polar senile cataract of both e yes 1 Year Follow-Up with Jason Liu MD, FACS 11/19/2013 Secondary diabetes mellitus with ophthalmic manifestat ions 1 Year Follow-Up with Jason Liu MD, FACS 11/19/2013 Vitreous floaters in both eyes 1 Year Follow-Up with Dino Liu MD, FACS 11/19/2013 Instructions Instructions not supported for this document typeNo Instructions Recorded Medical Equipment - Implanted Devices Includes: Current and historical DevicesNo Medical Equipment Recorded Medications Includes: Current and historical Medications Current Medications (continue as prescribed) Moxifloxacin HCl 0.5% Ophthalmic Solution 01/05/2021 Provider: Bartolo Randolph DO Diagnosis: Posterior subcapsula r polar age-related cataract, right eye Three days prior to surgery start one drop four times a day in the right eye BromSite 0.075% Ophthalmic Solution 01/05/2021 Prov ider: Bartolo Randolph DO Diagnosis: Posterior subcapsula r polar age-related cataract, right eye Three days prior to surgery start one dr op two times a day in the right eye, RUN CARD. SEE PHARM NOTES. RUN CARD SELF PAY DO NOT RUN THROUGH INSURANCE!!!!!!! Inveltys 1% Ophthalmic Suspension 01/05/2021 Provid er: Bartolo Randolph DO Diagnosis: Posterior subcapsula r polar age-related cataract, right eye Day of surgery remove patch start one dr op two times a day in the right eye, RUN CARD. SEE PHARM NOTES Calitrol 25MCG Oral Tablet 03/22/2018 Provider: Diagnosis: 2 times a day 3 times a week HumaLOG 100 UNIT/ML Solution 02/04/2015 Provider: Diagnosis: Sliding Scale Lantus 100 UNIT/ML Solution 02/04/2015 Provider: Diagnosis: 35 units a day Lisinopril-hydroCHLOROthiazide 20-12.5 MG TABS 11/19/2013 Provider: Diagnosis: Aspirin 81 MG OR TABS 11/19/2013 Provider: Diagnosis: Allopurinol 300 MG OR TABS 11/19/2013 Provider: Diagnosis: Lipitor 20 MG OR TABS 11/19/2013 Provider: Diagnosis: Nadolol 20 MG OR TABS 11/19/2013 Provider: Diagnosis: Past Medications on file Pred Forte 1% Ophthalmic Suspension 06/13/2017 - 07/13/2017 Provider: Bartolo Randolph DO Diagnosis: Cortical age-related cataract, left eye use one drop four times a day in the left eye Besivance 0.6% Ophthalmic Suspension 06/13/2017 - 07/13/2017 Provider: Bartolo Randolph DO Diagnosis: Cortical age-related cataract, left eye start one drop three times a day in the left eye BromSite 0.075% Ophthalmic Solution 06/13/2017 - 07/13/2017 Provider: Bartolo Randolph DO Diagnosis: Cortical age-related cataract, left eye one drop two times a day in the left eye Proscar 5 MG OR TABS 11/19/2013 - 03/22/2018 Provider: Diagnosis: Medications Administered Includes: Administered Medications in patient's chartNo Administered Medications Recorded Vital Signs Includes: Vital Signs from 04/20/2020 through 04/20/2021No Vital Signs Recorded For Specified Dates Results Includes: Results from 04/20/2020 through 04/20/2021No Results Recorded For Specified Dates History of Present Illness History of Present Illness not supported for this document typeNo History of Present Illness Recorded Social History Description Last Updated Tobacco non-user 12/01/2020 Never smoked 03/22/2018 No tobacco use 06/26/2017 Not a current smoker 06/26/2017 Not using drugs 06/26/2017 Smoking status : Never smoker 06/26/2017 A social drinker 02/04/2015 Alcohol 11/19/2013 Procedures and Surgical History Includes: Procedures from 04/20/2020 through 04/20/2021 Procedures Code Diagnosis Performing Provider Service Location Service Date Extracapsular cataract removal with intraocular lens implant (Right Side) 24735 Posterior subcapsular polar age-related cataract, right eye Bartolo Randolph DO [facility] 01/24/2021 [facility], with interpretation and re port (WAIVER OF LIABILITY ON FILE (ABN)) 35170 Type 2 diab with mod nonp rt nop with macular edema, l eye, skilled nursing (current) use of insulin Bartolo Morgan MD [facility] 11/30/2020 Comprehensive eye exam established patient (Signi/Sep Eval. 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 Randolph 06/18/17 ~PCIOL OD with Dr. Randolph 01/24/2021 02/01/2021 History of cataract surgery PCIOLOS 06/18/[address] Coates 06/26/2017 Surgical / procedural history : Disc Surgery - 2004 Medical History Includes: Medical History in patient's chart Description Last Updated History of the retina was abnormal 05/29/2019 History of type 2 diabetes mellitus DX: 1993, FBS: 110 this morning, A1C: 5.[address] Hill in 11/30/2020 History of diabetes mellitus Type 2: DX : 1993 A1C:6.[address] Hill FBS: 130 bedtime 06/26/2017 History of essential hypertension 06/26/2017 History of fundoscopic exam through dilated pupils was performed 02/04/2015 06/26/2017 Currently wearing eyeglasses OTC Readers +2.00 2014 Reported medical history : Renal Insufficiency 015 History of hyperlipidemia 06/04/2014 No recent change in medical history 06/04/2014 History of hypertension 11/19/2013 Family History Includes: Family History in patient's chart Description Last Updated Maternal history of arthritis 03/22/2018 Maternal history of multiple sclerosis 03/22/2018 Maternal history of stroke/cerebrovascular accident Paternal history of hypertension 03/22/2018 Paternal history of multiple sclerosis 03/22/2018 Maternal history of diabetes mellitus 02/04/2015 Maternal history of heart disease 02/04/2015 Paternal history of diabetes mellitus 02/04/2015 Review of Systems Review of Systems not supported for this document typeNo Review of Systems Recorded Mental Status Mental Status not supported for this document type Description Oriented to time, place, and person Functional Status Functional Status not supported for this document typeNo Functional Status Recorded Physical Exam Physical Exam not supported for this document typeNo Physical Exam Recorded Immunizations Includes: Immunizations in patient's chartNo Immunizations Recorded Allergies Includes: Active, inactive, and resolved Allergies Substance Type Reaction Onset Date - Time Resolved Date - Ti me Status Tetracyclines & Related Allergy 02/04/2015 - 12:00AM Active Sulfa Antibiotics Allergy 02/04/2015 - 12:00AM Active Penicillin G Benzathine Allergy 02/04/2015 - 12:00AM Active Encounters Includes: Encounters from 04/20/2020 through 04/20/2021 Encounter Provider Location Date Check-In Time Check-Out Time D iagnosis 1 Week Post OP Bartolo Morgan MD [facility] 02/02/20 21 9:41AM 10:50AM Extracapsular cataract removal w/IOL implant Bartolo Roberts in [facility] 01/24/2021 8:19AM 8:19AM Rx Refills/Changes Bartolo Randolph DO 01/05/2021 021 9:39AM 11/30/2020 11:59PM 1 Year Follow-Up Bartolo Morgan MD [facility] 11/03 12:30PM 1:23PM Cataract Senile Posterior Peoples bcapsular Polar, Pseudophakia, Taking Medication For Diabetes Long-term Use of Insulin, 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, 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, 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 Insurance Includes: Active Insurance Policies Plan Name Member ID Group # Subscriber Relationship Effective Da ang 1 - Medicare Part [place] of [place] ([facility]) [id number] Yfn tiangi Self 2 - [facility] [id number] Yfn Sam Self Advance Directives Includes: Current Advance DirectivesNo Advance Directives Recorded Health Concerns Includes: Active Health ConcernsNo Active Health Concerns Recorded Goals Includes: Active GoalsNo Active Goals Recorded Interventions Includes: Interventions for active GoalsNo Interventions Recorded Evaluations & Outcomes Includes: Evaluations & Outcomes for active GoalsNo Outcomes Recorded
--- OUTSIDE RECORDS SUMMARY | 2021-07-15 08:11 | CCD ---
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 Last uric acid was well controlled at 6.8 in April 2020. 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 He is on Lantus and sliding scale Humalog as well as Actos. Last urine microalbumin was negative in November 2020. He does have some diabetic retinopathy and usually sees his eye doctor at least every 6 months. Problem Thrombocytopenia D69.6 Active confirmed [id number] He has a low- grade thrombocytopenia, etiology of which is unclear but it dates back quite some time. Most recent platelet count generally stable at 127,000 in November 2020. Problem Elevated PSA R97.20 Active confirmed 3790009 05 Has a history of elevated PSA dating back to 2001. Prostate biopsy 2001 was negative. His PSA was significantly higher at 5.41 in May 2018 but has since dropped to 2.82 in November 2018, 1.47 in April 2019, 2.00 in April 2020, 1.61 in November 2020. Last prostate examination was unremarkable in 10/2019. He was off Proscar as of 2016 but restarted it in 2018, at just 3 days a week. He has taken Levaquin intermittently for symptoms of prostatitis, not recently apparently. Problem Coronary artery disease I25.10 Active confirmed 52645962 Had abnormal stress test with reversible inferolateral defect, in 12/05. Last stress test 12/05, next due prn symptoms. Last LVEF 60% in 12/05. Has no angina. No medication adjustments needed. On Aspirin, statin, KRISTI inhibitor, beta-seferino. Problem Pancreatic cyst K86.2 Active confirmed 3125 [id number] See EUS report from 10/2017. He had an MRI in 04/2019 followed by a specialty consultation in [place] in 2018, and he had a followup with an MRI in 06/2020. Problem Chronic kidney disease, stage 4 (severe) N18.4 Active confirmed [id number] Baseline GFR 20-30 ml/minute. He has a h istory of occasional creatinine elevations but overall trends are stable as of November 2020, with a GFR of 22 and a creatinine of 3.0. He was started on calcitriol as of March 2016 for an elevated PTH, and this remains controlled as of November 2020. Since there is no progression overall, I have deferred on a nephrology referral. Problem Hypercholesterolemia E78.00 Active confirmed 74319201 His lipids were quite reasonably controlled as of November 2020 on Lipitor 20 alternating with 40 mg daily. 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 Problem History of adenomatous polyp of colon Z86.010 Ac tive confirmed [id number] Tubular adenomas were seen on colonoscop y in July 2017, 07/2018. 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 He uses a large adult blood pressure cuff because of his large stature. ALLERGIES Allergen (clinical drug ingredient) Drug/Non Drug Allergy do cumented on EMR Reaction Allergy Type Onset Date Status ciprofloxacin Cipro([facility] Code:[address]-47) Unknown Drug Allergy Active Penicillin (For Allergies Use Only) Unknown Drug Allerg y Active tetracycline Tetracycline HCl([facility] Code:[address]-29) Unknown Drug Allergy Active Sulfa (for allergy use only) Unknown Drug Allergy Active ENCOUNTERS from 1945 to 2021-05-10 Encounter Location Date Provider Diagnosis [facility] [address] [phone] [place] [address] May, 2021 [facility] IMMUNIZATIONS Vaccine Route Administration Date Status Influenza Pharmacy Given Unknown Jun 16, 2020 Adminis tered Influenza Pharmacy Given Unknown Jul 02, 2019 Adminis tered Influenza (High Dose 65 & up) Unknown May 21, 2018 Ad ministered Zoster 0.65mL Zostavax Unknown November 10, 2013 Administe red Pneumococcal Adult 0.5mL Pneumovax 23 Unknown May 15 Administered TDAP Unknown Apr 10, 2005 Administered COVID-19 dose #1 given elsewhere Unspecified Unknown Oct 02, 2020 Administered Pneumococcal 0.5mL Prevnar 13 IM Intramuscular December 25, 2014 A dministered COVID-19 dose #2 given elsewhere Unspecified Unknown Oct 23, 2020 Administered Influenza 6mo & up Fluzone Unknown Jun 23, 2015 Admin istered Influenza 6mo & up Fluzone Unknown Jun 11, 2014 Admin istered SOCIAL HISTORY Tobacco Use: Social History Observation Description Date Details (start date - stop date) Never Smoker Sex Assigned At : Social History Observation Description Sex Assigned At Unknown Education: Question Answer Notes Level of Education: Professional Schools/Masters/PhD Audit Question Answer Notes Total Score: 2 Interpretation: Alcohol Education Adventism: Question Answer Notes Adventism No nondenominational beliefs that would impact health care. Domestic Violence: Question Answer Notes Status: Sexual Hx: Question Answer Notes Had sex in the last 12 months (vaginal, oral, or anal)? Yes Have you ever had an STD? No with Women only Drug and Alcohol Question Answer Notes Total Score: 0 Interpretation: No problems reported Alcohol Screening: Question Answer Notes Did you have a drink containing alcohol in the past year? Ye s Points 2 Interpretation Negative How often did you have six or more drinks on one occas ion in the past year? Never (0 points) How many drinks did you have on a typica l day when you were drinking in the past year? 1 or 2 (0 points) How often did you have a drink containing alcohol in t he past year? Two to four times a month (2 points) BMI Care Goal Follow-Up Question Answer Notes Above Normal BMI Follow-Up Giving encouragement to exercise Tobacco Use: Question Answer Notes Are you a: never smoker never smoker REASON FOR REFERRAL No Information VITAL SIGNS No information MEDICATIONS Medication SIG (Take, Route, Frequency, Duration) Notes Start Da te End Date Status Lisinopril-hydroCHLOROthiazide 20-12.5 MG 1 tablet Orally Once a day Active Levaquin 250 MG 1 tablet Orally Once a day as needed for prostat itis May, Active Corgard 20 MG 1 tablet Orally Once a day Active Lantus SoloStar 100 UNIT/ML 20-25 units Subcutaneous daily 20 units Active HumaLOG 100 UNIT/ML 1 injection Subcutaneous per sliding scale MDD 20 units Active Actos 45 MG 1 tablet Orally Once a day Active Proscar 5 MG 1 tablet Orally Three times a week Active Tamsulosin HCl 0.4 MG 1 capsule Orally Once a day for 30 day(s) Nov, Active Insulin Syringes (Disposable) U-100 0.5 ML Ultra fine 2,short needle,31 gauge DX:E11.3213 Three times daily for 90 days Oct, Active Calcitriol 0.25 MCG 1 capsule Orally Once a day, and 2 pills on Sunday and Mar, Active Allopurinol 300 MG 1 tablet Orally Once a day-5 days a week Active Protonix 40 MG 1 tablet Orally Once a day Active Blood Glucose Test - One Touch Verio In Vitro, DX : E11.3213 3 times a day for 90 day(s) Active Aspirin 81 MG 1 tablet Orally Once a day Active Atorvastatin Calcium 20 MG 1 tablet Orally Daily Active PROCEDURES No Information RESULTS No Results REASON FOR VISIT test strips MEDICAL (GENERAL) HISTORY Type Description Date Medical History 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, bilateral Medical History Hypertension with renal disease Medical History Chronic kidney disease, stage 4 (severe) Medical History Hypercholesterolemia Medical History Thrombocytopenia Medical History Elevated PSA Medical History Coronary artery disease Medical History Gout Medical History History of adenomatous polyp of colon Medical History Erazo''s esophagus without dysplasia 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 Randolph 10 sma ll polyps removed. 07/2017 Surgical History Endoscopic ultrasound 10/2017 Surgical History Dental implants uppers-Dr. Roca 02/2019 Goals Section No Information Health Concerns No Information MEDICAL EQUIPMENT No Information MENTAL STATUS No Information FUNCTIONAL STATUS No Information ASSESSMENTS No Information PLAN OF TREATMENT Medication Medication Name Sig Start Date Stop Date Blood Glucose Test - One Touch Verio In Vitro, DX : E11.3213 3 times a day for 90 day(s) Next Appt Details Provider Name:Mekhi Hill, 2021-05-23 09 :30:00 AM, [address], , [place], [address], Insurance Providers Payer Name Payer Address Payer Phone Insured Name Patient Relati onship to Insured Coverage Start Date Coverage End Date MEDICARE Part A and B [address] [facility] [phone] [phone] LUCI GOODMAN [facility] [employer] [facility] CLAIM DIV [address] [facility] [phone] LUCI GOODMAN self
--- OUTSIDE RECORDS SUMMARY | 2021-07-15 08:11 | CCD ---
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 Name Role Phone Noe ELIZABETH, GLENN, Jason Araya Unavailable [phone] Liz ELIZABETH, Mekhi PP [phone] Reason for Referral No Reason for Referral [...] Senile Nuclear 02/15/2017 - 12:00AM Bartolo Coates [facility] DO Inactive Cataract Senile Cortical Bilateral [...] Last Updated Tobacco non-user 12/01/2020 Never smoked 11/13/2018 No tobacco use 11/13/2018 Not using drugs 11/13/2018 Smoking status : Never smoker 11/13/2018 Not a current smoker 07/23/2017 A social drinker 02/04/2015 Alcohol 11/19/2013 Procedures and Surgical History Includes: Procedures from 04/20/2020 through 04/20/2021 Procedures Code Diagnosis Performing Provider Service Location Service Date Extracapsular cataract removal with intraocular lens implant (Right Side) 56907 Posterior subcapsular polar age-related cataract, right eye Bartolo Randolph DO [facility] 01/24/2021 [facility] Retina, with interpretation and re port (WAIVER OF LIABILITY ON FILE (ABN)) 21704 Type 2 diab with mod nonp rt nop with macular edema, l eye, 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 Randolph 06/18/17 ~PCIOL OD with Dr. Randolph 01/24/2021 02/01/2021 History of cataract surgery PCIOLOS 06/18/[address] Coates 06/26/2017 Surgical / procedural history : Disc Surgery - 2003 Medical History Includes: Medical History in patient's chart Description Last Updated History of the retina was abnormal 05/29/2019 History of type 2 diabetes mellitus DX: 1993, FBS: 110 this morning, A1C: 5.[address] Hill in 11/30/2020 History of fundoscopic exam through dilated pupils was performed 03/22/2018 11/13/2018 History of diabetes mellitus Type 2: DX : 1993 A1C:6.[address] Hill FBS: 130 bedtime 07/23/2017 History of essential hypertension 07/23/2017 Currently wearing eyeglasses OTC Readers +2.00 2014 Reported medical history : Renal Insufficiency 015 History of hyperlipidemia 06/04/2014 No recent change in medical history 06/04/2014 History of hypertension 11/19/2013 Family History Includes: Family History in patient's chart Description Last Updated Maternal history of arthritis 11/13/2018 Maternal history of multiple sclerosis 11/13/2018 Maternal history of stroke/cerebrovascular accident Paternal history of hypertension 11/13/2018 Paternal history of multiple sclerosis 11/13/2018 Maternal history of diabetes mellitus 02/04/2015 Maternal [...] 1 Week Post OP Bartolo Morgan MD [facility] 02/02/20 21 9:41AM 10:50AM Extracapsular cataract removal w/IOL implant Bartolo Roberts in [facility] 01/24/2021 8:19AM 8:19AM Rx Refills/Changes Bartolo Randolph DO 01/05/2021 021 9:39AM 11/30/2020 11:59PM 1 Year Follow-Up Bartolo Morgan MD [facility] 11/03 12:30PM 1:23PM Cataract Senile Posterior Peoples [...] - Medicare Part B of [place] ([facility]) [id number] Yfn tiangi Self 2 - [facility] [place] [id number] Yfn Sam Self Advance Directives Includes: Current Advance DirectivesNo Advance Directives Recorded Health Concerns Includes: Active Health ConcernsNo Active Health Concerns Recorded Goals Includes: Active GoalsNo Active Goals Recorded Interventions Includes: Interventions for active GoalsNo Interventions Recorded Evaluations & Outcomes Includes: Evaluations & Outcomes for active GoalsNo Outcomes Recorded
--- OUTSIDE RECORDS SUMMARY | 2021-07-15 08:11 | CCD ---
Author Author [facility] Organization [facility] Address Unknown Phone Unavailable Care Team Providers Care Public Relations Name Role Phone Mekhi Hill Unavailable PROBLEMS Type Condition ICD9-CM Code MYZ43-QO Code Onset Dates Condition S tatus W/U Status Risk SNOMED Code Notes Problem Gout M10.9 Active confirmed 22716656 Cont inue allopurinol. Last uric acid was well controlled at 6.8 in April 2020. 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 He is on Lantus and sliding scale Humalog as well as Actos . Last urine microalbumin was borderline elevated in May 2021. He does have some diabetic retinopathy and usually sees his eye doctor at least every 6 months. Problem Thrombocytopenia D69.6 Active confirmed 302 663568 He has a low- grade thrombocytopenia, etiology of which is unclear but it dates back quite some time. Most recent platelet count generally stable at 141,000 in May 2021. Problem Elevated PSA R97.20 Active confirmed 7768276 05 Has a history of elevated PSA [...] Problem Coronary artery disease I25.10 Active confirmed 05624854 Had abnormal stress test with reversible inferolateral defect, in 12/05. Last stress test 12/05, next due prn symptoms. Last LVEF 60% in 12/05. Has no angina. No medication adjustments needed. On Aspirin, statin, KRISTI inhibitor, beta-seferino. Problem Pancreatic cyst K86.2 Active confirmed 3125 8000 See EUS report from 10/2017. He had an MRI in 04/2019 followed by a specialty consultation in [place] in 2018, and he had a followup with an MRI in 06/2020 and is scheduled to be seen again in June 2021. Problem Chronic kidney disease, stage 4 (severe) N18.4 Active confirmed [id number] Baseline GFR 20-30 ml/minute. He has a h istory of occasional creatinine elevations but overall trends are stable as of May 2021, with a GFR of 24 and a creatinine of 2.77. He was started on calcitriol as of March 2016 for an elevated PTH, and this remains controlled as of May 2021. Since there is no progression overall, I have deferred on a nephrology referral. Problem Hypercholesterolemia E78.00 Active confirmed 38040230 His lipids were quite reasonably controlled as of November 2020 on Lipitor 20 alternating with 40 mg daily. 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 Problem History of adenomatous polyp of colon Z86.010 Ac tive confirmed 777205249 Tubular adenomas were seen on colonoscop y in July 2017, 07/2018; he is scheduled for a colonoscopy in June 2021. 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 He uses a large adult blood pressure cuff because of his large stature. ALLERGIES Allergen (clinical drug ingredient) Drug/Non Drug Allergy do cumented on EMR Reaction Allergy Type Onset Date Status ciprofloxacin Cipro([facility] Code:[address]-49) Unknown Drug Allergy Active Penicillin (For Allergies Use Only) Unknown Drug Allerg y Active tetracycline Tetracycline HCl([facility] Code:[address]-46) Unknown Drug Allergy Active Sulfasalazine Sulfa Antibiotics Unknown Drug Allergy Ac tive ENCOUNTERS from 1945 to 2021-05-26 Encounter Location Date Provider Diagnosis [facility] [address] [facility] [phone] [place] [address] 20 May, 2021 Mekhi Hill 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, bilateral E11.3213 ; Hypertension with renal disease I12.9 ; Chronic kidney disease, stage 4 (severe) N18.4 ; Hypercholesterolemia E78.00 ; Thrombocytopenia D69.6 ; Elevated PSA R97.20 ; Coronary artery disease I25.10 ; Gout M10.9 ; History of adenomatous polyp of colon Z86.010 ; 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 ; 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 cyst K86.2 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 Domestic [...] REASON FOR REFERRAL No Information VITAL SIGNS Weight 248 lbs May, Weight-kg 112.49 kg May, Height 73 in May, BMI 32.72 kg/m2 May, Heart Rate 60 /min May, Respiratory Rate 18 /min May, Temperature 97.3 degrees Fahrenheit May, Oximetry 99 May, Blood pressure systolic 128 mm Hg May, Blood pressure diastolic 82 mm Hg May, MEDICATIONS Medication SIG (Take, Route, Frequency, Duration) Notes Start Da te End Date Status Lisinopril-hydroCHLOROthiazide 20-12.5 MG 1 tablet Orally Once a day Active HumaLOG 100 UNIT/ML 1 injection Subcutaneous per sliding scale MDD 20 units Active Aspirin 81 MG 1 tablet Orally Once a day Active Proscar 5 MG 1 tablet Orally Three times a week Active Protonix 40 MG 1 tablet Orally Once a day Active Tamsulosin HCl 0.4 MG 1 capsule Orally Once a day for 30 day(s) Nov, Active Blood Glucose Test - One Touch Verio In Vitro, DX : E11.3213 3 times a day for 90 day(s) Active Corgard 20 MG 1 tablet Orally Once a day Active Insulin Syringes (Disposable) U-100 0.5 ML Ultra fine 2,short needle,31 gauge DX:E11.3213 Three times daily for 90 days Oct, Active Lantus SoloStar 100 UNIT/ML 20-25 units Subcutaneous daily 20 units Active Levaquin 250 MG 1 tablet Orally Once a day as needed for prostat itis May, Active Actos 45 MG 1 tablet Orally Once a day Active Calcitriol 0.25 MCG 1 capsule Orally Once a day, and 2 pills on Sunday and Mar, Active Allopurinol 300 MG 1 tablet Orally Once a day-5 days a week Active Atorvastatin Calcium 20 MG 1 tablet Orally Daily Active PROCEDURES No Information RESULTS No Results REASON FOR VISIT 6 month follow up with labs to review MEDICAL (GENERAL) HISTORY Type Description Date Medical [...] History Erazo''s esophagus without dysplasia Medical History detention current use of insulin Medical History Pancreatic cyst Surgical History colonoscopy 02/28/2012 Surgical History Prostate Biopsies 2001 Surgical History lumbar laminectomy 12/05 Surgical History OS cataract surgery 2016 Surgical History Colonoscopy and EGD-Dr. Randolph 10 sma ll polyps removed. 07/2017 Surgical History Endoscopic ultrasound 10/2017 Surgical History Dental implants uppers-Dr. 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 He is on Lantus and sliding scale Humalog as well as Actos. Last urine microalbumin was borderline elevated in May 2021. He does have some diabetic retinopathy and usually sees his eye doctor at least every 6 months. May, Hypertension with renal disease (ICD-10 - I12.9) His blood pressure control today is quite reasonable on lisinopril hydrochlorothiazide and Corgard; he monitors his home blood pressures regularly. He uses a large adult blood pressure cuff because of his large stature. May, Chronic kidney disease, stage 4 (severe) (ICD-10 - N18.4) Baseline GFR 20-30 ml/minute. He has a history of occasional creatinine elevations but overall trends are stable as of May 2021, with a GFR of 24 and a creatinine of 2.77. He was started on calcitriol as of March 2016 for an elevated PTH, and this remains controlled as of May 2021. Since there is no progression overall, I have deferred on a nephrology referral. May, Hypercholesterolemia (ICD-10 - E78.00) H is lipids were quite reasonably controlled as of November 2020 on Lipitor 20 alternating with 40 mg daily. May, Thrombocytopenia (ICD-10 - D69.6) He has a low-grade thrombocytopenia, etiology of which is unclear but it dates back quite some time. Most recent platelet count generally stable at 141,000 in May 2021. May, Elevated PSA (ICD-10 - R97.20) Has a his tory of elevated PSA dating back to 2001. [...] for symptoms of prostatitis, not recently apparently. May, Coronary artery disease (ICD-10 - I25.10 ) Had abnormal stress test with reversible inferolateral defect, in 12/05. Last stress test 12/05, next due prn symptoms. Last LVEF 60% in 12/05. Has no angina. No medication adjustments needed. On Aspirin, statin, KRISTI inhibitor, beta-seferino. May, Gout (ICD-10 - M10.9) Continue allopurin ol. Last uric acid was well controlled at 6.8 in April 2020. May, History of adenomatous polyp of colon (I CD-10 - Z86.010) Tubular adenomas were seen on colonoscopy in July 2017, 07/2018; he is scheduled for a colonoscopy in June 2021. May, Erazo''s esophagus without dysplasia ( ICD-10 - K22.70) He had Erazo's esophagus with metaplasia at upper endoscopy July 2018. May, Pancreatic cyst (ICD-10 - K86.2) See EUS report from 10/2017. He had an MRI in 04/2019 followed by a specialty consultation in [place] in 2018, and he had a followup with an MRI in 06/2020 and is scheduled to be seen again in June 2021. May, detention current use of insulin (ICD-10 - Z79.4 ) PLAN OF TREATMENT Treatment Notes Test Name Order Date HEMOGLOBIN A1c 2021-05-23 Future Test Test Name Order Date HEMOGLOBIN A1c [id number] MICROALBUMIN RANDOM [id number] MAGNESIUM LEVEL [id number] PTH INTACT 20211120 Comprehensive Metabolic Profile (CMP) 20211120 CBC with Differential 20211120 PSA MONITOR (HX PROSTATE CA/ABNORMAL PSA) 20211120 URIC ACID [id number] LIPID PANEL (CARDIAC RISK) 20211120 Next Appt Details 6 Months Reason: Provider Name:Mekhi Hill, 2021 09 :00:00 AM, [address] [place] [address], , [place], [address], Insurance Providers Payer Name Payer Address Payer Phone Insured Name Patient Relati onship to Insured Coverage Start Date Coverage End Date MEDICARE Part A and B [address] [facility] [phone] LUCI SAM [facility] HEALTH CARE OPTIONS [facility] CLAIM DIV [address] [facility] [id number] LUCI SAM
--- OUTSIDE RECORDS SUMMARY | 2021-07-15 08:11 | CCD ---
Author Author Jason Liu MD [facility] Organization Jason Liu MD [facility] Address [address] [address] Phone Care Team Providers Care Buffing Wheel Inspector Name Role Phone Noe ELIZABETH, GLENN, Jason Araya Unavailable [phone] Liz ELIZABETH, Mekhi PP [phone] Reason for Referral No Reason for Referral [...] Senile Nuclear 02/15/2017 - 12:00AM Bartolo Coates [facility] DO Inactive Cataract Senile Cortical Bilateral [...] History Description Last Updated Tobacco non-user 12/01/2020 Not a current smoker 05/29/2019 No tobacco use 05/29/2019 Not using drugs 05/29/2019 Smoking status : Never smoker 05/29/2019 Never smoked 11/13/2018 A social drinker 02/04/2015 Alcohol 11/19/2013 Procedures and Surgical History Includes: Procedures from 04/20/2020 through 04/20/2021 Procedures Code Diagnosis Performing Provider Service Location Service Date Extracapsular cataract removal with intraocular lens implant (Right Side) 67550 Posterior subcapsular polar age-related cataract, right eye Bartolo Randolph DO [facility] 01/24/2021 [facility], with interpretation and re port (WAIVER OF LIABILITY ON FILE (ABN)) 41450 Type 2 diab with mod nonp rt nop with macular edema, l eye, 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 Hill BS: 80-100 A.M 05/29/2019 History of essential hypertension 07/23/2017 Currently wearing eyeglasses OTC Readers +2.00 2014 Reported medical history : Renal Insufficiency 015 History of hyperlipidemia 06/04/2014 No recent change in medical history 06/04/2014 History of hypertension 11/19/2013 Family History Includes: Family History in patient's chart Description Last Updated Maternal history of arthritis 05/29/2019 Maternal history of multiple sclerosis 05/29/2019 Maternal history of stroke/cerebrovascular accident Paternal history of hypertension 05/29/2019 Paternal history of multiple sclerosis 05/29/2019 Maternal history of diabetes mellitus 02/04/2015 Maternal [...] 1 Week Post OP Bartolo Morgan MD [facility] 02/02/20 21 9:41AM 10:50AM Extracapsular cataract removal w/IOL implant Bartolo Roberts in [facility] 01/24/2021 8:19AM 8:19AM Rx Refills/Changes Bartolo Randolph DO 01/05/2021 021 9:39AM 11/30/2020 11:59PM 1 Year Follow-Up Bartolo Morgan MD [facility] 11/03 12:30PM 1:23PM Cataract Senile Posterior Peoples [...] - Medicare [place] of [place] ([facility]) [id number] Yfn tiangi Self 2 - [facility] [id number] Yfn Sam Self Advance Directives Includes: Current Advance DirectivesNo Advance Directives Recorded Health Concerns Includes: Active Health ConcernsNo Active Health Concerns Recorded Goals Includes: Active GoalsNo Active Goals Recorded Interventions Includes: Interventions for active GoalsNo Interventions Recorded Evaluations & Outcomes Includes: Evaluations & Outcomes for active GoalsNo Outcomes Recorded
--- OUTSIDE RECORDS SUMMARY | 2021-07-15 08:11 | CCD ---
Author Author Jason Liu MD [facility] Organization Jason Liu MD [facility] Address [phone] [address] Phone Care Team Providers Care Cattle Producers Name Role Phone Noe ELIZABETH, GLENN, Jason Araya Unavailable [phone] Liz ELIZABETH, Mekhi PP [phone] Reason for Referral No Reason for Referral [...] Senile Nuclear 02/15/2017 - 12:00AM Bartolo Coates [facility] DO Inactive Cataract Senile Cortical Bilateral 07/18/2016 [...] Illness Recorded Social History Description Last Updated No tobacco use 02/01/2021 Not using drugs 02/01/2021 Smoking status : Never smoker 02/01/2021 Tobacco non-user 12/01/2020 Never smoked 03/22/2018 Not a current smoker 06/13/2017 A social drinker 02/04/2015 Alcohol 11/19/2013 Procedures and Surgical History Includes: Procedures from 04/20/2020 through 04/20/2021 Procedures Code Diagnosis Performing Provider Service Location Service Date Extracapsular cataract removal with intraocular lens implant (Right Side) 15849 Posterior subcapsular polar age-related cataract, right eye Bartolo Randolph DO [facility] 01/24/2021 [facility], with interpretation and re port (WAIVER OF LIABILITY ON FILE (ABN)) 12574 Type 2 diab with mod nonp rt nop with macular edema, l eye, 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 Randolph 06/18/17 ~PCIOL OD with Dr. Randolph 01/24/2021 02/01/2021 Surgical / procedural history : Disc Surgery [...] November with Dr. Hill FBS: 130 bedtime 06/13/2017 History of essential hypertension 06/13/2017 History of fundoscopic exam through dilated pupils was performed 02/04/2015 06/13/2017 Currently wearing eyeglasses OT Readers +2.00 2014 Reported medical history : [...] 1 Week Post OP Bartolo Morgan MD [facility] 02/02/20 21 9:41AM 10:50AM Extracapsular cataract removal w/IOL implant Bartolo Roberts in [facility] 01/24/2021 8:19AM 8:19AM Rx Refills/Changes Bartolo Randolph DO 01/05/2021 021 9:39AM 11/30/2020 11:59PM 1 Year Follow-Up Bartolo Morgan MD [facility] 11/03 12:30PM 1:23PM Cataract Senile Posterior [...] Da ang 1 - Medicare Part B [facility] ([facility]) [id number] Yfn tiangi Self 2 - [facility] [id number] Yfn Sam Self Advance Directives Includes: Current Advance DirectivesNo Advance Directives Recorded Health Concerns Includes: Active Health ConcernsNo Active Health Concerns Recorded Goals Includes: Active GoalsNo Active Goals Recorded Interventions Includes: Interventions for active GoalsNo Interventions Recorded Evaluations & Outcomes Includes: Evaluations & Outcomes for active GoalsNo Outcomes Recorded
--- OUTSIDE RECORDS SUMMARY | 2021-07-15 08:11 | CCD ---
Author Author Jason Liu MD [facility] Organization Jason Liu MD [facility] Address [address] [address] Phone Care Team Providers Care Bilingual Kindergarten Teacher Name Role Phone Noe ELIZABETH, GLENN, Jason Araya Unavailable [phone] Liz ELIZABETH, Mekhi PP [phone] Reason for Referral No Reason for Referral [...] Senile Nuclear 02/15/2017 - 12:00AM Bartolo Coates [facility] DO Inactive Cataract Senile Cortical Bilateral [...] 12/01/2020 Never smoked 03/22/2018 No tobacco use 06/19/2017 Not a current smoker 06/19/2017 Not using drugs 06/19/2017 Smoking status : Never smoker 06/19/2017 A social drinker 02/04/2015 Alcohol 11/19/2013 Procedures and Surgical History Includes: Procedures from 04/20/2020 through 04/20/2021 Procedures Code Diagnosis Performing Provider Service Location Service Date Extracapsular cataract removal with intraocular lens implant (Right Side) 28938 Posterior subcapsular polar age-related cataract, right eye Bartolo Randolph DO [facility] 01/24/2021 [facility], with interpretation and re port (WAIVER OF LIABILITY ON FILE (ABN)) 87035 Type 2 diab with mod nonp rt nop with macular edema, l eye, nursing home (current) use of insulin Bartolo Morgan MD [facility] 11/30/2020 Comprehensive eye exam established patient (Signi/Sep Eval. 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 Randolph 06/18/17 ~PCIOL OD with Dr. Randolph 01/24/2021 02/01/2021 History of cataract surgery PCIOLOS 06/18/[address] Coates 06/19/2017 Surgical / procedural history : Disc Surgery [...] November with Dr. Hill FBS: 130 bedtime 06/19/2017 History of essential hypertension 06/19/2017 History of fundoscopic exam through dilated pupils was performed 02/04/2015 06/19/2017 Currently wearing eyeglasses OTC Readers +2.00 2014 [...] 1 Week Post OP Bartolo Morgan MD [facility] 02/02/20 21 9:41AM 10:50AM Extracapsular cataract removal w/IOL implant Bartolo escamilla [facility] 01/24/2021 8:19AM 8:19AM Rx Refills/Changes Bartolo Randolph DO 01/05/2021 021 9:39AM 11/30/2020 11:59PM 1 Year Follow-Up Bartolo Morgan MD [facility] 11/03 12:30PM 1:23PM Cataract Senile Posterior Peoples [...] - Medicare Part [place] of [place] ([facility]) [id number] Yfn tiangi Self 2 - [facility] [id number] Yfn Sam Self Advance Directives Includes: Current Advance DirectivesNo Advance Directives Recorded Health Concerns Includes: Active Health ConcernsNo Active Health Concerns Recorded Goals Includes: Active GoalsNo Active Goals Recorded Interventions Includes: Interventions for active GoalsNo Interventions Recorded Evaluations & Outcomes Includes: Evaluations & Outcomes for active GoalsNo Outcomes Recorded
--- OUTSIDE RECORDS SUMMARY | 2021-07-15 08:11 | CCD ---
Author Author Jason Liu MD [facility] Organization Jason Liu MD [facility] Address [phone] [address] Phone Care Team Providers Care Caddy Packer Name Role Phone Noe ELIZABETH, GLENN, Jason Araya Unavailable [phone] Liz ELIZABETH, Mekhi PP [phone] Reason for Referral No Reason for Referral [...] Senile Nuclear 02/15/2017 - 12:00AM Bartolo Coates [facility] DO Inactive Cataract Senile Cortical Bilateral [...] Ophthalmic Manifestations 0 11/19/2013 - 12:00AM Bartolo aRndolph DO Inactive Note: Unchanged Diabetes with Diabetic [...] use of insulin 8 Month Follow-Up with Bartolodaenna go DO 11/13/2018 Posterior subcapsular polar senile [...] 12/01/2020 Never smoked 03/22/2018 No tobacco use 07/23/2017 Not a current smoker 07/23/2017 Not using drugs 07/23/2017 Smoking status : Never smoker 07/23/2017 A social drinker 02/04/2015 Alcohol 11/19/2013 Procedures and Surgical History Includes: Procedures from 04/20/2020 through 04/20/2021 Procedures Code Diagnosis Performing Provider Service Location Service Date Extracapsular cataract removal with intraocular lens implant (Right Side) 65641 Posterior subcapsular polar age-related cataract, right eye Bartolo Randolph DO [facility] 01/24/2021 [facility], with interpretation and re port (WAIVER OF LIABILITY ON FILE (ABN)) 63402 Type 2 diab with mod nonp rt nop with macular edema, l eye, group home (current) use of insulin Bartolo Morgan MD [facility] 11/30/2020 Comprehensive eye exam established patient (Signi/Sep Eval. 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, Type 2 diab with mod nonp rtnop without macular edema, r eye, Nexdtve age-related mclr degn, right eye, early dry stage Bartolo Butcher MD [facility] 11/30/2020 Surgical History Last Updated History [...] bedtime 07/23/2017 History of essential hypertension 07/23/2017 History of fundoscopic exam through dilated pupils was performed 02/04/2015 07/23/2017 Currently wearing eyeglasses OTC Readers +2.00 [...] 1 Week Post OP Bartolo Morgan MD [facility] 02/02/20 21 9:41AM 10:50AM Extracapsular cataract removal w/IOL implant Bartolo escamilla [facility] 01/24/2021 8:19AM 8:19AM Rx Refills/Changes Bartolo Randolph DO 01/05/2021 021 9:39AM 11/30/2020 11:59PM 1 Year Follow-Up Bartolo Morgan MD [facility] 11/03 12:30PM 1:23PM Cataract Senile Posterior [...] - Medicare Part [place] of [place] ([facility]) [id number] Yfn tiangi Self 2 - [facility] [id number] Yfn Sam Self Advance Directives Includes: Current Advance DirectivesNo Advance Directives Recorded Health Concerns Includes: Active Health ConcernsNo Active Health Concerns Recorded Goals Includes: Active GoalsNo Active Goals Recorded Interventions Includes: Interventions for active GoalsNo Interventions Recorded Evaluations & Outcomes Includes: Evaluations & Outcomes for active GoalsNo Outcomes Recorded
--- OUTSIDE RECORDS SUMMARY | 2021-07-15 08:11 | CCD ---
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 Name Role Phone Noe ELIZABETH, GLENN, Jason Araya Unavailable [phone] Liz ELIZABETH, Mekhi PP [phone] Reason for Referral No Reason for Referral [...] Senile Nuclear 02/15/2017 - 12:00AM Bartolo Coates [facility] DO Inactive Cataract Senile Cortical Bilateral [...] removal with intraocular lens implant (Right Side) [id number] Posterior subcapsular polar age-related cataract, right eye Bartolo Randolph DO [facility] 01/24/2021 [facility], with interpretation and re port (WAIVER OF LIABILITY ON FILE (ABN)) 89641 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, Type 2 diab with mod nonp rtnop without macular edema, r eye, Nexdtve age-related mclr degn, right eye, early dry stage Bartolo Butcher MD [facility] 11/30/2020 Surgical History Last Updated History [...] 1 Week Post OP Bartolo Morgan MD [facility] 02/02/20 21 9:41AM 10:50AM Extracapsular cataract removal w/IOL implant Bartolo Roberts in [facility] 01/24/2021 8:19AM 8:19AM Rx Refills/Changes Bartolo Randolph DO 01/05/2021 021 9:39AM 11/30/2020 11:59PM 1 Year Follow-Up Bartolo Morgan MD [facility] 11/03 12:30PM 1:23PM Cataract Senile Posterior [...] - Medicare Part B of [place] ([facility]) [id number] Yfn tiangi Self 2 - [facility] [id number] Yfn Sam Self Advance Directives Includes: Current Advance DirectivesNo Advance Directives Recorded Health Concerns Includes: Active Health ConcernsNo Active Health Concerns Recorded Goals Includes: Active GoalsNo Active Goals Recorded Interventions Includes: Interventions for active GoalsNo Interventions Recorded Evaluations & Outcomes Includes: Evaluations & Outcomes for active GoalsNo Outcomes Recorded
--- OUTSIDE RECORDS SUMMARY | 2021-07-15 08:12 | CCD ---
Author Author [facility] Organization [facility] Address Unknown Phone Unavailable Care Team Providers Care Regulatory Specialist Name Role Phone JUNIOREitan EDWARD RPA Unavailable Unavailable JUNIOR, G EDWARD RPA Unavailable Unavailable JUNIOR, G EDWARD RPA Unavailable Unavailable JUNIOR, G EDWARD RPA Unavailable Unavailable JUNIOR, G EDWARD RPA Unavailable Unavailable JUNIOR, G EDWARD RPA Unavailable Unavailable JUNIOR, G EDWARD RPA Unavailable Unavailable JUNIOR, G EDWARD RPA Unavailable Unavailable JUNIOR, G EDWARD RPA Unavailable Unavailable JUNIOR, G EDWARD RPA Unavailable Unavailable JUNIOR, G EDWARD RPA Unavailable Unavailable JUNIOR, G EDWARD RPA Unavailable Unavailable JUNIOR, G EDWARD RPA Unavailable Unavailable JUNIOR, G EDWARD RPA Unavailable Unavailable JUNIOR, G EDWARD RPA Unavailable Unavailable JUNIOR, G EDWARD RPA Unavailable Unavailable JUNIOR, G EDWARD RPA Unavailable Unavailable JUNIOR, G EDWARD RPA Unavailable Unavailable JUNIOR, G EDWARD RPA Unavailable Unavailable JUNIOR, G EDWARD RPA Unavailable Unavailable JUNIOR, G EDWARD RPA Unavailable Unavailable JUNIOR, G EDWARD RPA Unavailable Unavailable JUNIOR, G EDWARD RPA Unavailable Unavailable JUNIOR, G EDWARD RPA Unavailable Unavailable JUNIOR, G EDWARD RPA Unavailable Unavailable JUNIOR, G EDWARD RPA Unavailable Unavailable JUNIOR, G EDWARD RPA Unavailable Unavailable JUNIOR, G EDWARD RPA Unavailable Unavailable JUNIOR, G EDWARD RPA Unavailable Unavailable JUNIOR, G EDWARD RPA Unavailable Unavailable JUNIOR, G EDWARD RPA Unavailable Unavailable JUNIOR, G EDWARD RPA Unavailable Unavailable JUNIOR, G EDWARD RPA Unavailable Unavailable JUNIOR, G EDWARD RPA Unavailable Unavailable JUNIOR, G EDWARD RPA Unavailable Unavailable JUNIOR, G EDWARD RPA Unavailable Unavailable JUNIOR, G EDWARD RPA Unavailable Unavailable SIMRAN, A DONNIE DO Unavailable Unavailable SIMRAN, A DONNIE DO Unavailable Unavailable SIMRAN, A DONNIE DO Unavailable Unavailable SIMRAN, A DONNIE DO Unavailable Unavailable SIMRAN, A DONNIE DO Unavailable Unavailable SIMRAN, A DONNIE DO Unavailable Unavailable SIMRAN, A DONNIE DO Unavailable Unavailable SIMRAN, A DONNIE DO Unavailable Unavailable SIMRAN, A DONNIE DO Unavailable Unavailable SIMRAN, A DONNIE DO Unavailable Unavailable SIMRAN, A DONNIE DO Unavailable Unavailable SIMRAN, A DONNIE DO Unavailable Unavailable SIMRAN, A DONNIE DO Unavailable Unavailable SIMRAN, A DONNIE DO Unavailable Unavailable SIMRAN, A DONNIE DO Unavailable Unavailable SIMRAN, A DONNIE DO Unavailable Unavailable SIMRAN, A DONNIE DO Unavailable Unavailable SIMRAN, A DONNIE DO Unavailable Unavailable SIMRAN, A DONNIE DO Unavailable Unavailable SIMRAN, A DONNIE DO Unavailable Unavailable SIMRAN, A DONNIE DO Unavailable Unavailable SIMRAN, A DONNIE DO Unavailable Unavailable Re-disclosure Warning The records that you are about to access may contain information from federally-assisted alcohol or drug abuse programs. If such information is present, then the following federally mandated warning applies: This information has been disclosed to you from records protected by federal confidentiality rules (42 CFR part 2). The federal rules prohibit you from making any further disclosure of this information unless further disclosure is expressly permitted by the written consent of the person to whom it pertains or as otherwise permitted by 42 CFR part 2. A general authorization for the release of medical or other information is NOT sufficient for this purpose. The Federal rules restrict any use of the information to criminally investigate or prosecute any alcohol or drug abuse patient.The records that you are about to access may contain highly sensitive health information, the redisclosure of which is protected by Article 27-F of the [facility] Public Health law. If you continue you may have access to information: Regarding HIV / AIDS; Provided by facilities licensed or operated by the [facility] Office of Mental Health; or Provided by the [facility] Office for People With Developmental Disabilities. If such information is present, then the following [facility] mandated warning applies: This information has been disclosed to you from confidential records which are protected by state law. State law prohibits you from making any further disclosure of this information without the specific written consent of the person to whom it pertains, or as otherwise permitted by law. Any unauthorized further disclosure in violation of state law may result in a fine or longterm sentence or both. A general authorization for the release of medical or other information is NOT sufficient authorization for further disc losure. Family History Family Member Name Family Member Gender Family Member Status Date o f Status Description Data Source(s) Unknown Male Problem [facility] ([facility]) Encounters Encounter Providers Location Date Indications Data Source(s ) Out[place] [address] [facility] [address] 05/23/2021 12:00:00 AM EDT eCW1 ([facility]) Unknown [address] [facility] [address] 05/10/2021 12:00:00 AM EDT eCW1 ([facility]) Outpatient Attender: YOSVANY JUNIOR RPA 02/23 10:43:56 AM EDT - 02/23/2021 11:27:10 AM EDT DocuTap ([facility] ) Outpatient<td ID="encounterTypeDescripti onID0">1 Week Post OP</td><td>Donnie Randolph DO</td><td>Jason Liu MD [facility]</td><td>02/01/2021</td><td>9:41AM</td><td>10:50AM</td><td></td> Attender: DONNIE Morgan MD [facility] 02/01/2021 09:41:00 AM EDT - 02/01/2021 10:50:00 AM EDT JESENIA (Jason cárdenas MD [facility]) <td ID="encounterTypeDescriptionID1">Ext racapsular cataract removal w/IOL implant</td><td>Donnie Randolph DO</td><td>[facility]</td><td>01/24/2021</td><td>8:19AM</td><td>8:19AM</td><td></td>Outpatient Attender: DONNIE RANDOLPH DO [facility] 01/24/2021 08:19:00 AM EDT - 01/24/2021 08:19:00 AM EDT JESENIA (Jason Jaquez MD [facility]) Outpatient<td ID="encounterTypeDescripti onID3">1 Year Follow-Up</td><td>Donnie Randolph DO</td><td>Jason Liu MD [facility]</td><td>11/30/2020</td><td>12:30PM</td><td>1:23PM</td><td><content ID="encounterDiagnosisID3-0">Cataract Senile Posterior Subcapsular Polar</content>, <content ID="encounterDiagnosisID3-1">Pseudophakia</content>, <content ID="encounterDiagnosisID3-2">Taking Medication For Diabetes Long-term Use of Insulin</content>, <content ID="encounterDiagnosisID3-3">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</content>, <content ID="encounterDiagnosisID3-4">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</content>, <content ID="encounterDiagnosisID3-5">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</content></td> [facility] 12:30:00 PM EDT - 11/30/2020 01:23:00 PM ED T 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PseudophakiaPseudophakiaPseudophakiaPseudophakiaPseudophakiaPseudophakiaPse udophakiaPseudophakiaPseudophakiaPseudophakiaPseudophakiaTaking Medication For Diabetes Long-term Use of InsulinTaking Medication For Diabetes Long-term Use of InsulinTaking Medication For Diabetes Long-term Use of InsulinTaking Medication For Diabetes Long-term Use of InsulinTaking Medication For Diabetes Long-term Use of InsulinTaking Medication For Diabetes Long-term Use of InsulinTaking Medication For Diabetes Long-term Use of InsulinTaking Medication For Diabetes Long-term Use of InsulinTaking Medication For Diabetes Long-term Use of InsulinTaking Medication For Diabetes Long-term Use of InsulinTaking Medication For Diabetes Long-term Use of InsulinCataract Senile Posterior Subcapsular Polar Cataract Senile Posterior Subcapsular PolarCataract Senile Posterior Subcapsular PolarCataract Senile Posterior Subcapsular PolarCataract Senile Posterior Subcapsular PolarCataract Senile Posterior Subcapsular PolarCataract Senile Posterior Subcapsular PolarCataract Senile Posterior Subcapsular PolarCataract Senile Posterior Subcapsular PolarCataract Senile Posterior Subcapsular PolarCataract Senile Posterior Subcapsular Polar JESENIA (Jason Jaquez MD [facility]) Type 2 Diab W/ Diab Retinopathy Mod Nonp rolif Without Macular Edema Type 2 Diab W/ Diab Retinopathy Mod Nonp roliferative W/ Macular Edema Type 2 Diab W/ Diab Retinopathy Mod Nonp rolif Without Macular Edema Type 2 Diab W/ Diab Retinopathy Mod Nonp roliferative W/ Macular Edema Type 2 Diab W/ Diab Retinopathy Mod Nonp rolif Without Macular Edema Type 2 Diab W/ Diab Retinopathy Mod Nonp roliferative W/ Macular Edema Type 2 Diab W/ Diab Retinopathy Mod Nonp rolif Without Macular Edema Type 2 Diab W/ Diab Retinopathy Mod Nonp roliferative W/ Macular Edema Type 2 Diab W/ Diab Retinopathy Mod Nonp rolif Without Macular Edema Type 2 Diab W/ Diab Retinopathy Mod Nonp roliferative W/ Macular Edema Type 2 Diab W/ Diab Retinopathy Mod Nonp rolif Without Macular Edema Type 2 Diab W/ Diab Retinopathy Mod Nonp roliferative W/ Macular Edema Type 2 Diab W/ Diab Retinopathy Mod Nonp rolif Without Macular Edema Type 2 Diab W/ Diab Retinopathy Mod Nonp roliferative W/ Macular Edema Type 2 Diab W/ Diab Retinopathy Mod Nonp rolif Without Macular Edema Type 2 Diab W/ Diab Retinopathy Mod Nonp roliferative W/ Macular Edema Type 2 Diab W/ Diab Retinopathy Mod Nonp rolif Without Macular Edema Type 2 Diab W/ Diab Retinopathy Mod Nonp roliferative W/ Macular Edema Type 2 Diab W/ Diab Retinopathy Mod Nonp rolif Without Macular Edema Type 2 Diab W/ Diab Retinopathy Mod Nonp roliferative W/ Macular Edema Type 2 Diab W/ Diab Retinopathy Mod Nonp rolif Without Macular Edema Type 2 Diab W/ Diab Retinopathy Mod Nonp roliferative W/ Macular Edema 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 Pseudophakia Pseudophakia Pseudophakia Pseudophakia Pseudophakia Pseudophakia Pseudophakia Pseudophakia Pseudophakia Pseudophakia Pseudophakia Taking Medication For Diabetes Long-term Use of Insulin Taking Medication For Diabetes Long-term Use of Insulin Taking Medication For Diabetes Long-term Use of Insulin Taking Medication For Diabetes Long-term Use of Insulin Taking Medication For Diabetes Long-term Use of Insulin Taking Medication For Diabetes Long-term Use of Insulin Taking Medication For Diabetes Long-term Use of Insulin Taking Medication For Diabetes Long-term Use of Insulin Taking Medication For Diabetes Long-term Use of Insulin Taking Medication For Diabetes Long-term Use of Insulin Taking Medication For Diabetes Long-term Use of Insulin Cataract Senile Posterior Subcapsular Po lar Cataract Senile Posterior Subcapsular Po lar Cataract Senile Posterior Subcapsular Po lar Cataract Senile Posterior Subcapsular Po lar Cataract Senile Posterior Subcapsular Po lar Cataract Senile Posterior Subcapsular Po lar Cataract Senile Posterior Subcapsular Po lar Cataract Senile Posterior Subcapsular Po lar Cataract Senile Posterior Subcapsular Po lar Cataract Senile Posterior Subcapsular Po lar Cataract Senile Posterior Subcapsular Po lar Outpatient<td ID="encounterTypeDescripti onID2">Rx Refills/Changes</td><td>Donnie Randolph DO</td><td></td><td>01/05/2021</td><td>11/30/2020 9:39AM</td><td>11/30/2020 11:59PM</td><td></td> Attender: DONNIE RANDOLPH DO 021 09:39:00 AM EDT - 11/30/2020 11:59:00 PM EDT JESENIA (Jason Jaquez MD [facility]) Outpatient [address] [facility] [address] 11/08/2020 12:00:00 AM EST eCW1 ([facility]) Unknown [address] [facility] [address] 10/11/2020 12:00:00 AM EST eCW1 ([facility]) Unknown [address] [facility] [address] 08/23/2020 12:00:00 AM EST eCW1 ([facility]) Immunizations Vaccine Date Status Description Data Source(s) COVID-19 VACC, MRNA(PFIZER)/PF 06/13/2021 12:00:00 AM EDT completed [facility] COVID-19 VACCINE Pfizer 06/13/2021 12:00:00 AM EDT completed [facility] Vaccine Series Complete: YESThis Data wa s Submitted to [facility] Via [employer]. COVID-19 dose #2 given elsewhere Unspecified 10/23/2020 02:2 8:00 PM EST completed eCW1 ([facility]) COVID-19 dose #2 given elsewhere Unspecified 10/23/2020 02:2 8:00 PM EST completed eCW1 ([facility]) COVID-19 dose #2 given elsewhere Unspecified 10/23/2020 02:2 8:00 PM EST completed eCW1 ([facility]) COVID-19 VACCINE Pfizer 10/23/2020 12:00:00 AM EST completed [facility] Vaccine Series Complete: YESThis Data wa s Submitted to [facility] Via [employer]. COVID-19 VACCINE Pfizer 10/05/2020 12:00:00 AM EST completed [facility] Vaccine Series Complete: NOThis Data was Submitted to [facility] Via [employer]. COVID-19 dose #1 given elsewhere Unspecified 10/02/2020 02:2 9:00 PM EST completed eCW1 ([facility]) COVID-19 dose #1 given elsewhere Unspecified 10/02/2020 02:2 9:00 PM EST completed eCW1 ([facility]) COVID-19 dose #1 given elsewhere Unspecified 10/02/2020 02:2 9:00 PM EST completed eCW1 ([facility]) IIV3. This is one of two codes replacing CVX 15, which is being retired. 06/16/2020 06:24:00 AM EDT completed eCW1 ([facility]) IIV3. This is one of two codes replacing CVX 15, which is being retired. 06/16/2020 06:24:00 AM EDT completed eCW1 ([facility]) IIV3. This is one of two codes replacing CVX 15, which is being retired. 06/16/2020 06:24:00 AM EDT completed eCW1 ([facility]) Medications Medication Brand Name Start Date Product Form Dose Route Admi nistrative Instructions Pharmacy Instructions Status Indications Reaction Description Data Source(s) 1.479-0.188- 0.225 gram 07/05/2021 12:00:00 AM EDT tablet 24 USE DIRECTED USE DIRECTED SOLD: 07/05/2021 [facility] pantoprazole 40 MG Delayed Release Oral Tablet PANTOPRAZOLE SODIUM 07/02/2021 12:00:00 AM EDT tablet,delayed release (DR/EC) 90 T FRANCIS ONE TABLET BY MOUTH EVERY MORNING TAKE ONE TABLET BY MOUTH EVERY MORNING SOLD: 07/05/2021 [facility] Calcitriol 0.71999 MG Oral Capsule 0.25 mcg CALCITRIOL 07/02/2021 12:00:00 AM EDT capsule 120 TAKE DIRECTED 10 CAPSULES PER WEEK TAKE DIRECTED 10 CAPSULES PER WEEK SOLD: 07/05/2021 [facility] 250 mg 06/06/2021 12:00:00 AM EDT tablet 15 TAKE ONE TABLET BY MOUTH EVERY DAY TAKE ONE TABLET BY MOUTH EVERY DAY SOLD: 06/13/2021 [facility] 20-12.5 mg 06/04/2021 12:00:00 AM EDT tablet 90 TAKE ONE TABLET BY MOUTH EVERY DAY TAKE ONE TABLET BY MOUTH EVERY DAY SOLD: 06/06/2021 [facility] 240 mcg/0.7 mL 05/12/2021 12:00:00 AM EDT syringe 0 USE DIRECTED USE DIRECTED SOLD: 05/12/2021 [facility] 100 unit/mL 04/06/2021 12:00:00 AM EDT solution 30 INJECT 5 UNITS UNDER THE SKIN THREE TIMES A DAY NEEDED INJECT 5 UNITS UNDER THE SKIN THREE TIME S A DAY NEEDED SOLD: 04/06/2021 [facility] 300 mg 01/13/2021 12:00:00 AM EDT tablet 90 TAKE ONE TABLET BY MOUTH EVERY DAY TAKE ONE TABLET BY MOUTH EVERY DAY SOLD: 01/14/2021 [facility] 300 mg 01/13/2021 12:00:00 AM EDT tablet 90 TAKE ONE TABLET BY MOUTH EVERY DAY TAKE ONE TABLET BY MOUTH EVERY DAY SOLD: 06/06/2021 [facility] 0.075 % 01/05/2021 12:00:00 AM EDT drops 5 STARTING 3 DAYS PRIOR TO SURGERY INSTILL 1 DROP INTO THE RIGHT EYE TWICE A DAY STARTING 3 DAYS PRIOR TO SURGERY INSTILL 1 DROP INTO THE RIGHT EYE TWICE A DAY SOLD: 01/14/2021 [facility] Inveltys 1% Ophthalmic Suspension Inveltys 1% Ophthalmic Mara pension 01/05/2021 12:00:00 AM EDT active loteprednol etabonate 10 MG/ML Ophthalmic Suspension [Inveltys] JESENIA (Jason Jaquez MD [facility]) moxifloxacin 5 MG/ML Ophthalmic Solution Moxifloxacin HCl 0.5% Ophthalmic Solution Moxifloxacin HCl 0.5% Ophthalmic Solution 01/05/2021 12:00:00 AM EDT active moxifloxacin 5 MG/ML Oph thalmic Solution JESENIA (Jason Jaquez MD [facility]) BromSite 0.075% Ophthalmic Solution BromSite 0.075% Ophthalm ic Solution 01/05/2021 12:00:00 AM EDT active bromfenac 0.75 MG/ML Ophthalmic Solution [Bromsite] JESENIA (Jason Jaquez MD [facility]) moxifloxacin 5 MG/ML Ophthalmic Solution 0.5 % MOXIFLOXACIN HCL 01/05/2021 12:00:00 AM EDT drops 3 STARTING 3 DAYS PRIOR TO SURGERY INSTILL 1 DROP INTO THE RIGHT EYE FOUR TIMES A DAY STARTING 3 DAYS PRIOR TO SURGERY INSTILL 1 DROP INTO THE RIGHT EYE FOUR TIMES A DAY SOLD: 01/14/2021 [facility] 1 % 01/05/2021 12:00:00 AM EDT drops,suspension 2 ON THE DAY OF SURGERY REMOVE PATCH THEN INSTILL 1 DROP INTO THE RIGHT EYE TWICE A DAY ON THE DAY OF SURGERY REMOVE PATCH THEN INSTILL 1 DROP INTO THE RIGHT EYE TWICE A DAY SOLD: 01/14/2021 [facility] 45 mg 12/04/2020 12:00:00 AM EDT tablet 90 TAKE ONE TABLET BY MOUTH EVERY DAY TAKE ONE TABLET BY MOUTH EVERY DAY SOLD: 03/10/2021 [facility] Finasteride 5 MG Oral Tablet FINASTERIDE 12/04/2020 12:00:00 AM EDT ta blet 90 TAKE ONE TABLET BY MOUTH EVERY DAY TAKE ONE TABLET BY MOUTH EVERY DAY SOLD: 12/06/2020 [facility] 45 mg 12/04/2020 12:00:00 AM EDT tablet 90 TAKE ONE TABLET BY MOUTH EVERY DAY TAKE ONE TABLET BY MOUTH EVERY DAY SOLD: 06/06/2021 [facility] 45 mg 12/04/2020 12:00:00 AM EDT tablet 90 TAKE ONE TABLET BY MOUTH EVERY DAY TAKE ONE TABLET BY MOUTH EVERY DAY SOLD: 12/06/2020 [facility] 20 mg 12/04/2020 12:00:00 AM EDT tablet 90 TAKE ONE TABLET BY MOUTH EVERY DAY TAKE ONE TABLET BY MOUTH EVERY DAY SOLD: 12/06/2020 [facility] 20 mg 12/04/2020 12:00:00 AM EDT tablet 90 TAKE ONE TABLET BY MOUTH EVERY DAY TAKE ONE TABLET BY MOUTH EVERY DAY SOLD: 06/06/2021 [facility] 20-12.5 mg 12/04/2020 12:00:00 AM EDT tablet 90 TAKE ONE TABLET BY MOUTH EVERY DAY TAKE ONE TABLET BY MOUTH EVERY DAY SOLD: 12/06/2020 [facility] 20 mg 12/04/2020 12:00:00 AM EDT tablet 90 TAKE ONE TABLET BY MOUTH EVERY DAY TAKE ONE TABLET BY MOUTH EVERY DAY SOLD: 03/10/2021 [facility] Finasteride 5 MG Oral Tablet FINASTERIDE 12/04/2020 12:00:00 AM EDT ta blet 90 TAKE ONE TABLET BY MOUTH EVERY DAY TAKE ONE TABLET BY MOUTH EVERY DAY SOLD: 06/06/2021 [facility] pantoprazole 40 MG Delayed Release Oral Tablet PANTOPRAZOLE SODIUM 10/26/2020 12:00:00 AM EST tablet,delayed release (DR/EC) 90 T FRANCIS ONE TABLET BY MOUTH EVERY MORNING TAKE ONE TABLET BY MOUTH EVERY MORNING SOLD: 01/16/2021 [facility] 0.25 mcg 10/26/2020 12:00:00 AM EST capsule 120 TAKE DIRECTED 10 CAPSULES PER WEEK TAKE DIRECTED 10 CAPSULES PER WEEK SOLD: 04/06/2021 [facility] 100 unit/mL 10/26/2020 12:00:00 AM EST solution 30 INJECT 35 UNITS UNDER THE SKIN AT BEDTIME DIRECTED INJECT 35 UNITS UNDER THE SKIN AT BEDTIM E DIRECTED SOLD: 10/27/2020 [facility] Calcitriol 0.02137 MG Oral Capsule 0.25 mcg CALCITRIOL 10/26/2020 12:00:00 AM EST capsule 120 TAKE DIRECTED 10 CAPSULES PER WEEK TAKE DIRECTED 10 CAPSULES PER WEEK SOLD: 10/27/2020 [facility] 0.4 mg 10/26/2020 12:00:00 AM EST capsule 90 TAKE ONE CAPSULE BY MOUTH EVERY DAY TAKE ONE CAPSULE BY MOUTH EVERY DAY SOLD: 10/27/2020 [facility] pantoprazole 40 MG Delayed Release Oral Tablet PANTOPRAZOLE SODIUM 10/26/2020 12:00:00 AM EST tablet,delayed release (DR/EC) 90 T FRANCIS ONE TABLET BY MOUTH EVERY MORNING TAKE ONE TABLET BY MOUTH EVERY MORNING SOLD: 10/27/2020 [facility] Calcitriol 0.30240 MG Oral Capsule 0.25 mcg CALCITRIOL 10/26/2020 12:00:00 AM EST capsule 120 TAKE DIRECTED 10 CAPSULES PER WEEK TAKE DIRECTED 10 CAPSULES PER WEEK SOLD: 01/16/2021 [facility] Insulin Glargine 100 UNT/ML Injectable Solution [Lantu s] INSULIN GLARGINE,HUM.REC.ANLOG 10/26/2020 12:00:00 AM EST solution 30 INJECT 35 UNITS UNDER THE SKIN AT BEDTIME DIRECTED INJECT 35 UNITS UNDER THE SKIN AT BEDTIM E DIRECTED SOLD: 04/11/2021 [facility] pantoprazole 40 MG Delayed Release Oral Tablet PANTOPRAZOLE SODIUM 10/26/2020 12:00:00 AM EST tablet,delayed release (DR/EC) 90 T FRANCIS ONE TABLET BY MOUTH EVERY MORNING TAKE ONE TABLET BY MOUTH EVERY MORNING SOLD: 04/06/2021 [facility] 0.4 mg 10/26/2020 12:00:00 AM EST capsule 90 TAKE ONE CAPSULE BY MOUTH EVERY DAY TAKE ONE CAPSULE BY MOUTH EVERY DAY SOLD: 04/06/2021 [facility] Insulin Syringes (Disposable) U-100 0.5 ML UNK 10/11/2020 12:00: 00 AM EST active Insulin Syringes (Disposa ble) U-100 0.5 ML eCW1 ([facility]) BLOOD SUGAR DIAGNOSTIC 10/11/2020 12:00:00 AM EST strip 300 USE DIRECTED THREE TIMES A DAY USE DIRECTED THREE TIMES A DAY SOLD: 10/15/2020 [facility] Insulin Syringes (Disposable) U-100 0.5 ML UNK 10/11/2020 12:00: 00 AM EST active Insulin Syringes (Disposa ble) U-100 0.5 ML eCW1 ([facility]) BLOOD SUGAR DIAGNOSTIC 10/11/2020 12:00:00 AM EST strip 300 USE DIRECTED THREE TIMES A DAY USE DIRECTED THREE TIMES A DAY SOLD: 05/12/2021 [facility] Insulin Syringes (Disposable) U-100 0.5 ML UNK 10/11/2020 12:00: 00 AM EST active Insulin Syringes (Disposa ble) U-100 0.5 ML eCW1 ([facility]) 0.5 mL 31 gauge x 5/16" 10/11/2020 12:00:00 AM EST syringe 300 USE DIRECTED THREE TIMES A DAY USE DIRECTED THREE TIMES A DAY SOLD: 10/15/2020 [facility] Insulin Syringes (Disposable) U-100 0.5 ML UNK 10/11/2020 12:00: 00 AM EST active Insulin Syringes (Disposa ble) U-100 0.5 ML eCW1 ([facility]) atorvastatin 20 MG Oral Tablet ATORVASTATIN CALCIUM 09/13/2020 1 2:00:00 AM EST tablet 90 TAKE ONE TABLET BY MOUTH EVERY D AY TAKE ONE TABLET BY MOUTH EVERY DAY SOLD: 03/10/2021 [facility] atorvastatin 20 MG Oral Tablet ATORVASTATIN CALCIUM 09/13/2020 1 2:00:00 AM EST tablet 90 TAKE ONE TABLET BY MOUTH EVERY D AY TAKE ONE TABLET BY MOUTH EVERY DAY SOLD: 06/06/2021 [facility] atorvastatin 20 MG Oral Tablet ATORVASTATIN CALCIUM 09/13/2020 1 2:00:00 AM EST tablet 90 TAKE ONE TABLET BY MOUTH EVERY D AY TAKE ONE TABLET BY MOUTH EVERY DAY SOLD: 09/13/2020 [facility] atorvastatin 20 MG Oral Tablet ATORVASTATIN CALCIUM 09/13/2020 1 2:00:00 AM EST tablet 90 TAKE ONE TABLET BY MOUTH EVERY D AY TAKE ONE TABLET BY MOUTH EVERY DAY SOLD: 12/06/2020 [facility] 45 mg 08/21/2020 12:00:00 AM EST tablet 90 TAKE ONE TABLET BY MOUTH EVERY DAY TAKE ONE TABLET BY MOUTH EVERY DAY SOLD: 08/23/2020 [facility] 20-12.5 mg 08/21/2020 12:00:00 AM EST tablet 90 TAKE ONE TABLET BY MOUTH EVERY DAY TAKE ONE TABLET BY MOUTH EVERY DAY SOLD: 08/23/2020 [facility] 20 mg 08/21/2020 12:00:00 AM EST tablet 90 TAKE ONE TABLET BY MOUTH EVERY DAY TAKE ONE TABLET BY MOUTH EVERY DAY SOLD: 08/23/2020 [facility] pantoprazole 40 MG Delayed Release Oral Tablet PANTOPRAZOLE SODIUM 07/28/2020 12:00:00 AM EST tablet,delayed release (DR/EC) 90 T FRANCIS ONE TABLET BY MOUTH EVERY MORNING TAKE ONE TABLET BY MOUTH EVERY MORNING SOLD: 07/28/2020 [facility] 0.25 mcg 07/28/2020 12:00:00 AM EST capsule 120 TAKE DIRECTED 10 CAPSULES PER WEEK TAKE DIRECTED 10 CAPSULES PER WEEK SOLD: 07/28/2020 [facility] 10 mg 05/21/2020 12:00:00 AM EDT tablet 20 TAKE ONE TABLET BY MOUTH EVERY DAY TAKE ONE TABLET BY MOUTH EVERY DAY SOLD: 05/25/2020 [facility] 100 unit/mL 11/26/2019 12:00:00 AM EDT solution 30 INJECT 5 UNITS UNDER THE SKIN THREE TIMES A DAY NEEDED INJECT 5 UNITS UNDER THE SKIN THREE TIME S A DAY NEEDED SOLD: 10/27/2020 [facility] 300 mg 09/29/2019 12:00:00 AM EST tablet 90 TAKE ONE TABLET BY MOUTH EVERY DAY TAKE ONE TABLET BY MOUTH EVERY DAY SOLD: 07/28/2020 [facility] 0.4 mg 09/12/2019 12:00:00 AM EST capsule 90 TAKE ONE CAPSULE BY MOUTH EVERY DAY TAKE ONE CAPSULE BY MOUTH EVERY DAY SOLD: 07/28/2020 [facility] 0.4 mg 09/12/2019 12:00:00 AM EST capsule 60 TAKE ONE CAPSULE BY MOUTH EVERY DAY TAKE ONE CAPSULE BY MOUTH EVERY DAY SOLD: 05/25/2020 [facility] 100 unit/mL 09/12/2019 12:00:00 AM EST solution 30 INJECT 35 UNITS UNDER THE SKIN AT BEDTIME DIRECTED INJECT 35 UNITS UNDER THE SKIN AT BEDTIM E DIRECTED SOLD: 06/12/2020 [facility] Insurance Providers Payer name Policy type / Coverage type Policy ID Covered constitution party ID Covered constitution party's relationship to walters Policy Walters Plan Information MEDICARE A [id number] Self [id number] A MEDICARE [id number] SP [id number] A [facility] HEALTH CARE OPTIONS [id number] SP [id number] [facility] U [id number] Self [id number] [place] Medicare Part B [id number] Self [id number] [facility] [id number] [id number] Self [id number] Medicare Part B [facility] Other 0 [id number] Self 0 Medicare Part B [facility] Other 0 [id number] Self 0 Medicare Part B of [facility] Other 0 [id number] Self 0 Medicare Part B of [facility] Other 0 [id number] Self 0 Medicare Part B of [facility] Other 0 [id number] Self 0 Medicare Part B of [facility] Other 0 [id number] Self 0 Medicare Part B of [facility] Other 0 [id number] Self 0 ANSI-Commercial [id number] ANSI-Medicare Part B [id number] ANSI-Commercial [id number] ANSI-Commercial [id number] ANSI-Medicare Part B [id number] ANSI-Commercial [id number] ANSI-Medicare Part B [id number] ANSI-Commercial [id number] ANSI-Commercial [id number] ANSI-Commercial [id number] ANSI-Medicare Part B [id number] ANSI-Commercial [id number] ANSI-Medicare Part B [id number] ANSI-Commercial [id number] ANSI-Commercial [id number] ANSI-Commercial [id number] ANSI-Medicare Part B [id number] ANSI-Commercial [id number] MEDICARE [id number] SP [id number] A Medicare Part B [facility] 0 [id number] S [facility] 0 AAR HEALTH CARE OPTIONS [id number] S [id number] [place] [employer] [id number] S [id number] MEDICARE - [place] [id number] S [id number] [facility] Health Care Options [facility] Part B [id number] Self [id number] Medicare [place] Medicare Primary [id number] Self [id number] [place] 306/806 [id number] SP [id number] [place]BS [place] PPO 302/307 [id number] SP [id number] MEDICARE [id number] SP [id number] T MEDICARE [id number] SP [id number] A MEDICARE UNAVAILABLE SP UNAVAILA BLE MEDICARE [id number] SP [id number] AAR HEALTH CARE OPTIONS [id number] Medicare Part B of [facility] Other 0 [id number] Self 0 Medicare Part B of [facility] Other 0 [id number] Self 0 Medicare Part B of [facility] Other 0 [id number] Self 0 Medicare Part B of [facility] Other 0 [id number] Self 0 Problems, Conditions, and Diagnoses No Information Surgeries/Procedures Procedure Description Date Indications Data Source(s) Extracapsular extraction of lens (procedure) History o f extracapsular cataract extraction PCIOL OS with Femtosecond laser by Dr. Randolph 06/18/17 ~PCIOL OD with Dr. Randolph 01/24/2021 02/01/2021 12:00:00 AM EDT TOD DOBBINS (Jason Jaquez MD [facility]) Extracapsular cataract removal with intraocular lens i mplant (Right Side) Extracapsular cataract removal with intraocular lens implant (Right Side) 01/24/2021 12:00:00 AM EDT JESENIA (Jason cárdenas MD [facility]) Extracapsular extraction of lens (procedure) History o f extracapsular cataract extraction PCIOL OS with Femtosecond laser by Dr. Randolph 06/18/17 12/01/2020 12:00:00 AM EDT JESENIA (Jason Jaquez MD [facility]) Comprehensive eye exam established patient (Signi/Sep Eval. & Man.) Comprehensive eye exam established patient (Signi/Sep Eval. & Man.) 11/30/2020 12:00:00 AM EDT JESENIA (Jason Jaquez MD [facility]) Scodi Retina, with interpretation and re port (WAIVER OF LIABILITY ON FILE (ABN)) Scodi Retina, with interpretation and re port (WAIVER OF LIABILITY ON FILE (ABN)) 11/30/2020 12:00:00 AM EDT JESENIA (Edwin Jaquez MD [facility]) COMPUTERIZED OPHTHALMIC IMAGING RETINA Scodi Retina, w ith interpretation and report (GA) 11/30/2020 12:00:00 AM EDT JESENIA (Edwin Jaquez MD [facility]) Comprehensive eye exam established patient (25) Lashawn overtonive eye exam established patient (25) 11/30/2020 12:00:00 AM EDT JESENIA (Jason Jaquez MD [facility]) Results ID Date Data Source [id number] 02/24/2021 12:00:00 AM EDT [facility] Name Value Range Interpretation Code Description Data Zoë rce(s) Supporting Document(s) SARS-CoV-2 (COVID-19) RNA [Presence] in Respiratory specimen by NICOLAS with probe detection Not Detected [facility] This lab was ordered by [facility] and reported by [employer] ID Date Data Source [id number] 01/19/2021 10:20:00 AM EDT [facility] Name Value Range Interpretation Code Description Data Zoë rce(s) Supporting Document(s) SARS-CoV-2 (COVID-19) RNA [Presence] in Respiratory specimen by NICOLAS with probe detection Not Detected [facility] This lab was ordered by [facility] and reported by [employer] Procedure Social History Code Duration Value Status Description Data Source(s ) Smoking 05/23/2021 12:00:00 AM EDT Never Smoker completed Never S moker eCW1 ([facility]) Smoking 04/20/2021 09:09:27 PM EDT Never smoked tobacco (findi ng) completed Never smoked tobacco (finding) JESENIA (Jason Jaquez MD [facility]) Smoking 04/20/2021 09:08:58 PM EDT Never smoked tobacco (findi ng) completed Never smoked tobacco (finding) JESENIA (Jason Jaquez MD [facility]) Smoking 04/20/2021 09:07:53 PM EDT Never smoked tobacco (findi ng) completed Never smoked tobacco (finding) JESENIA (Jason Jaquez MD [facility]) Smoking 04/20/2021 09:05:21 PM EDT Never smoked tobacco (findi ng) completed Never smoked tobacco (finding) JESENIA (Jason Jaquez MD [facility]) Smoking 04/20/2021 09:02:18 PM EDT Never smoked tobacco (findi ng) completed Never smoked tobacco (finding) JESENIA (Jason Jaquez MD [facility]) Smoking 04/20/2021 08:58:04 PM EDT Never smoked tobacco (findi ng) completed Never smoked tobacco (finding) JESENIA (Jason Jaquez MD [facility]) Smoking 03/29/2021 07:32:25 AM EDT Never smoked tobacco (findi ng) completed Never smoked tobacco (finding) JESENIA (Jason Jaquez MD [facility]) Smoking 12/01/2020 10:48:35 AM EDT Never smoked tobacco (findi ng) completed Never smoked tobacco (finding) JESENIA (Jason Jaquez MD [facility]) Smoking 11/08/2020 12:00:00 AM EST Never Smoker completed Never S moker eCW1 ([facility]) Smoking 11/08/2020 12:00:00 AM EST Never Smoker completed Never S moker eCW1 ([facility]) Vital Signs ID Date Data Source UNK Name Value Range Interpretation Code Description Data Source(s) Body weight 248 [lb_av] 248 [lb_av] eCW1 ([facility]) Body weight 112.49 kg 112.49 kg eCW1 ([facility]) Body height 73 [in_i] 73 [in_i] eCW1 ([facility]) Body mass index (BMI) [Ratio] 32.72 kg/m2 32.72 kg/m2 W1 ([facility]) Heart rate 60 /min 60 /min eCW1 ([facility]) Respiratory rate 18 /min 18 /min eCW1 ([facility]) Body temperature 97.3 [degF] 97.3 [degF] eCW1 ( [facility]) Systolic blood pressure 128 mm[Hg] 128 mm[Hg] e CW1 ([facility]) Diastolic blood pressure 82 mm[Hg] 82 mm[Hg] eCW1 ([facility]) Body weight 249.4 [lb_av] 249.4 [lb_av] eCW1 ([facility]) Body height 73 [in_i] 73 [in_i] eCW1 ([facility]) Body mass index (BMI) [Ratio] 32.90 kg/m2 32.90 kg/m2 W1 ([facility]) Heart rate 64 /min 64 /min eCW1 ([facility]) Respiratory rate 18 /min 18 /min eCW1 ([facility]) Body temperature 97.5 [degF] 97.5 [degF] eCW1 ( [facility]) Systolic blood pressure 136 mm[Hg] 136 mm[Hg] e CW1 ([facility]) Diastolic blood pressure 78 mm[Hg] 78 mm[Hg] eCW1 ([facility]) Patient Treatment Plan of Care Planned Activity Planned Date Details Description Data Source (s) Inveltys 1% Ophthalmic Suspension 01/05/2021 12:00:00 AM EDT JESENIA (Jason Jaquez MD [facility]) BromSite 0.075% Ophthalmic Solution 01/05/2021 12:00:00 AM EDT JESENIA (Jason Jaquez MD [facility]) moxifloxacin 5 MG/ML Ophthalmic Solution 01/05/2021 12:00:00 AM EDT JESENIA (Jason Jaquez MD [facility]) Insulin Syringes (Disposable) U-100 0.5 ML 10/11/2020 12:00:[address] eCW1 ([facility])
--- OUTSIDE RECORDS SUMMARY | 2021-07-15 08:12 | CCD ---
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 & Man.) 88543 Type 2 diab with mod nonp rtnop with macular edema, l eye, terminal carman (current) use of insulin, Type 2 diab with mod nonp rtnop without macular edema, r eye, Nexdtve age-related mclr degn, right eye, early dry stage Bartolo Butcher MD [facility] 11/30/2020 Surgical History Last Updated [...] 1 Week Post OP Bartolo Morgan MD [facility] 02/02/20 21 9:41AM 10:50AM Extracapsular cataract removal w/IOL implant Bartolo Roberts in [facility] 01/24/2021 8:19AM 8:19AM Rx Refills/Changes Bartolo Randolph DO 01/05/2021 021 9:39AM 11/30/2020 11:59PM 1 Year Follow-Up Bartolo Morgan MD [facility] 11/03 12:30PM 1:23PM Cataract Senile [...] Da ang 1 - Medicare Part B [facility] ([facility]) [id number] Yfn tiangi Self 2 - [facility] [id number] Yfn Sam Self Advance Directives Includes: Current Advance DirectivesNo Advance Directives Recorded Health Concerns Includes: Active Health ConcernsNo Active Health Concerns Recorded Goals Includes: Active GoalsNo Active Goals Recorded Interventions Includes: Interventions for active GoalsNo Interventions Recorded Evaluations & Outcomes Includes: Evaluations & Outcomes for active GoalsNo Outcomes Recorded
[2021-07-15] MEDS ORDERED: fentaNYL 100 MCG/2 ML INJECTION (J3010) As Ordered ONE (08:51)
[2021-07-15] MEDS ORDERED: propofoL 200 MG/20 ML VIAL As Ordered ONE ×2 (08:52→10:14)
[2021-07-15] MEDS ORDERED: LIDOCAINE 2% 100MG/5ML SDV (FOR ANES.) As Ordered ONE (08:52)
[2021-07-15] MEDS ORDERED: ePHEDrine SULFATE 25 MG/5 ML(5MG/ML) SYRINGE As Ordered ONE ×2 (09:55→10:09)
--- NOTE | 2021-07-15 09:55 | ROOR ---
Patient Name: Yfn Sam Procedure Date: 07/15/2021 9:35 AM Date of : 1945 Age: 75 Room: [facility] Gender: Male Note Status: Finalized Procedure: Upper Endoscopy + Biopsies Indications: Heartburn, Follow-up of Erazo's esophagus Providers: Artur Randolph MD Referring MD: Mekhi Hill MD Requesting Provider: Medicines: Monitored Anesthesia Care Complications: No immediate complications. Procedure: Pre-Anesthesia Assessment: - The heart rate, respiratory rate, oxygen saturations, blood pressure, adequacy of pulmonary ventilation, and response to care were monitored throughout the procedure. The Endoscope was introduced through the mouth, and advanced to the second part of duodenum. The upper GI endoscopy was accomplished without difficulty. The patient tolerated the procedure well. Findings: The Z-line was regular and was found 40 cm from the incisors. Multiple biopsies were obtained with cold forceps for evaluation to rule out Erazo's Esophagus randomly at the gastroesophageal junction. A small hiatal hernia was present. There was a medium-sized lipoma on the anterior wall of the stomach. Biopsies were taken with a cold forceps in the gastric antrum for Helicobacter pylori testing. The exam of the duodenum was otherwise normal. Impression: - Z-line regular, 40 cm from the incisors. - Small hiatal hernia. - Gastric lipoma. - Multiple biopsies were obtained at the gastroesophageal junction. - Biopsies were taken with a cold forceps for Helicobacter pylori testing. - The examination was otherwise normal. Recommendation: - Patient has a contact number available for emergencies. The signs and symptoms of potential delayed complications were discussed with the patient. Return to normal activities tomorrow. Written discharge instructions were provided to the patient. - High fiber diet. - Discharge patient to home. - Follow an antireflux regimen. - Continue present medications. - Await pathology results. - Telephone GI clinic for pathology results in 1 week. - Return to referring physician. - The findings and recommendations were discussed with the patient. Procedure Code(s): --- Professional --- 79158, Esophagogastroduodenoscopy, flexible, transoral; with biopsy, single or multiple Diagnosis Code(s): --- Professional --- K22.70, Erazo's esophagus without dysplasia K44.9, Diaphragmatic hernia without obstruction or gangrene D17.5, Benign lipomatous neoplasm of intra-abdominal organs R12, Heartburn CPT copyright 2019 [employer]. All rights reserved. The codes documented in this report are preliminary and upon sociology instructor review may be revised to meet current compliance requirements. Artur Randolph MD Artur Randolph MD 07/15/2021 9:54:59 AM Electronically signed by Artur Randolph MD Number of Addenda: 0 Note Initiated On: 07/15/2021 9:35 AM Estimated Blood Loss: Estimated blood loss: none.
[2021-07-15] MEDS ORDERED: GLYCOPYRROLATE INJ 0.2 MG/ML 2 ML VIAL As Ordered ONE (10:06)
--- NOTE | 2021-07-15 10:32 | ROOR ---
Patient Name: Yfn Sam Procedure Date: 07/15/2021 9:36 AM Date of : 1945 Age: 75 Room: [facility] Gender: Male Note Status: Finalized Procedure: Total Colonoscopy to Cecum + Cold Snare + Biopsy Polypectomy + Hemoclips Indications: High risk colon cancer surveillance: Personal history of colonic polyps, Last colonoscopy: 2017 Providers: Artur Randolph MD Referring MD: Mekhi Hill MD Requesting Provider: Medicines: Monitored Anesthesia Care Complications: No immediate complications. Procedure: Pre-Anesthesia Assessment: - The heart rate, respiratory rate, oxygen saturations, blood pressure, adequacy of pulmonary ventilation, and response to care were monitored throughout the procedure. The Colonoscope was introduced through the anus and advanced to the cecum, identified by appendiceal orifice and ileocecal valve. The colonoscopy was performed without difficulty. The patient tolerated the procedure well. The quality of the bowel preparation was excellent. Findings: The perianal and digital rectal examinations were normal. Non-bleeding internal hemorrhoids were found during retroflexion. The hemorrhoids were small and Grade I (internal hemorrhoids that do not prolapse). Two sessile polyps were found in the transverse colon. The polyps were small in size. These polyps were removed with a cold biopsy forceps. Resection and retrieval were complete. A medium polyp was found in the mid ascending colon. The polyp was sessile. The polyp was removed with a cold snare. Resection and retrieval were complete. To prevent bleeding after the polypectomy, one hemostatic clip was successfully placed. There was no bleeding at the end of the procedure. Multiple sessile polyps were found in the proximal ascending colon. The polyps were small in size. These polyps were removed with a cold snare. Resection and retrieval were complete. The exam was otherwise without abnormality on direct and retroflexion views. Impression: - Non-bleeding internal hemorrhoids. - Two small polyps in the transverse colon, removed with a cold biopsy forceps. Resected and retrieved. - One medium polyp in the mid ascending colon, removed with a cold snare. Resected and retrieved. Clip was placed. - Multiple small polyps in the proximal ascending colon, removed with a cold snare. Resected and retrieved. - The examination was otherwise normal on direct and retroflexion views. - The exam was otherwise normal to the cecum. Recommendation: - Patient has a contact number available for emergencies. The signs and symptoms of potential delayed complications were discussed with the patient. Return to normal activities tomorrow. Written discharge instructions were provided to the patient. - High fiber diet. - Discharge patient to home. - Continue present medications. - Await pathology results. - Telephone GI clinic for pathology results in 1 week. - Repeat colonoscopy in 3 years for surveillance based on pathology results. - Return to referring physician. - The findings and recommendations were discussed with the patient. Procedure Code(s): --- Professional --- 54954, Colonoscopy, flexible; with removal of tumor(s), polyp(s), or other lesion(s) by snare technique 97300, 59, Colonoscopy, flexible; with biopsy, single or multiple Diagnosis Code(s): --- Professional --- K63.5, Polyp of colon Z86.010, Personal history of colonic polyps K64.0, First degree hemorrhoids CPT copyright 2019 [employer]. All rights reserved. The codes documented in this report are preliminary and upon respiratory tech review may be revised to meet current compliance requirements. Artur Randolph MD Artur Randolph MD 07/15/2021 10:32:32 AM Electronically signed by Artur Randolph MD Number of Addenda: 0 Note Initiated On: 07/15/2021 9:36 AM Estimated Blood Loss: Estimated blood loss: none.
[2021-07-15 10:49] VITALS: BP 143/72
== END 2021-07-15 11:07 | disposition home or self-care (01) ==
LOC: M OPP 08:07
PROVIDERS: ATTEND Internal Medicine Gastroenterology
DX: Z12.11 Encounter for screening for malignant neoplasm of colon (principal); Z86.010 Personal history of colon polyps; D12.2 Benign neoplasm of ascending colon; D12.3 Benign neoplasm of transverse colon; K64.8 Other hemorrhoids; D17.5 Benign lipomatous neoplasm of intra-abdominal organs; K22.70 Barrett's esophagus without dysplasia; K44.9 Diaphragmatic hernia without obstruction or gangrene; R12 Heartburn; Z79.4 Long term (current) use of insulin; Z79.82 Long term (current) use of aspirin; Z79.899 Other long term (current) drug therapy; Z88.0 Allergy status to penicillin; Z88.2 Allergy status to sulfonamides
CPT/HCPCS: 43239; 45380; 45385; 88305; J3010

== ENCOUNTER → 2021-11-28 | Outpatient (CLI) | payer MEDICARE ==
[~2021-11-28] MED LIST changes: -NS 1,000 ML IV ONE
[2021-11-28 12:09] LABS: BASO % 0.3 % (0.0-1.0); EOS # 0.2 10^3/uL (0.0-0.5); EOS % 3.3 % (0.0-3.0); HEMATOCRIT 37.1 % (42.0-52.0); LYMPH # 1.9 10^3/uL (1.5-5.0); LYMPH % 25.2 % (24.0-44.0); MEAN CORPUSCULAR HEMOGLOBIN 31.6 pg (27.0-33.0); MEAN CORPUSCULAR HGB CONC 32.3 g/dl (32.0-36.5); MEAN CORPUSCULAR VOLUME 97.6 fl (80.0-96.0); MONO # 0.8 10^3/uL (0.0-0.8); MONO % 10.8 % (2.0-8.0); NEUTROPHILS # 4.4 10^3/uL (1.5-8.5); NEUTROPHILS % 60.1 % (36.0-66.0); PLATELET COUNT, AUTOMATED 127 10^3/uL (150-450); WHITE BLOOD COUNT 7.3 10^3/uL (4.0-10.0)
[2021-11-28 12:31] LABS: ALBUMIN 3.2 GM/DL (3.2-5.2); BILIRUBIN,TOTAL 0.4 MG/DL (0.2-1.0); CALCIUM LEVEL 9.5 MG/DL (8.8-10.2); CHOLESTEROL RISK RATIO 3.605 (<5); CREATININE FOR GFR 2.97 MG/DL (0.70-1.30); GLOMERULAR FILTRATION RATE 22.1 (>42); MAGNESIUM LEVEL 1.6 MG/DL (1.8-2.4); POTASSIUM SERUM 5.2 MEQ/L (3.5-5.1); PROSTATIC SPECIFIC AG MONITOR 2.15 NG/ML (< 4.00); TOTAL PROTEIN 5.9 GM/DL (6.4-8.2); URIC ACID 5.3 MG/DL (3.5-7.2)
[2021-11-28 12:44] LABS: PTH INTACT 39.2 PG/ML (18.5-88.0)
[2021-11-28 12:47] LABS: CREATININE, URINE 80.8 MG/DL; MALB URINE SIEMENS 49.9 MG/L; MAU/CREAT RATIO 61.7 MCG/MG (0.0-30.0)
[2021-11-28 13:31] LABS: HEMOGLOBIN A1c 6.3 %
== END ==
LOC: M PLALAB 08:26
PROVIDERS: ATTEND Internal Medicine
DX: E11.3213 Type 2 diabetes mellitus with mild nonproliferative diabetic retinopathy with macular edema, bilateral (principal); I12.9 Hypertensive chronic kidney disease with stage 1 through stage 4 chronic kidney disease, or unspecified chronic kidney disease; N18.4 Chronic kidney disease, stage 4 (severe); D69.6 Thrombocytopenia, unspecified; R97.20 Elevated prostate specific antigen [PSA]; M10.9 Gout, unspecified; E78.00 Pure hypercholesterolemia, unspecified

== ENCOUNTER → 2021-12-20 | Outpatient (CLI) | payer MEDICARE ==
[2021-12-20 11:23] LABS: CALCIUM LEVEL 9.4 MG/DL (8.8-10.2); CREATININE FOR GFR 2.5 MG/DL (0.70-1.30); MAGNESIUM LEVEL 1.6 MG/DL (1.8-2.4); POTASSIUM SERUM 5.1 MEQ/L (3.5-5.1)
[2021-12-20 11:36] LABS: CREATININE, URINE 97.4 MG/DL; MALB URINE SIEMENS 34.8 MG/L; MAU/CREAT RATIO 35.7 MCG/MG (0.0-30.0)
== END ==
LOC: M PLALAB 09:12
PROVIDERS: ATTEND Internal Medicine
DX: I12.9 Hypertensive chronic kidney disease with stage 1 through stage 4 chronic kidney disease, or unspecified chronic kidney disease (principal); E11.3213 Type 2 diabetes mellitus with mild nonproliferative diabetic retinopathy with macular edema, bilateral

== ENCOUNTER → 2022-05-22 | Outpatient (CLI) | payer MEDICARE ==
[2022-05-22 13:25] LABS: BASO % 0.5 % (0.0-1.0); EOS # 0.3 10^3/uL (0.0-0.5); EOS % 3.4 % (0.0-3.0); HEMATOCRIT 38.1 % (42.0-52.0); HEMOGLOBIN 11.7 g/dl (13.5-17.5); LYMPH % 25.3 % (24.0-44.0); MEAN CORPUSCULAR HEMOGLOBIN 30.8 pg (27.0-33.0); MEAN CORPUSCULAR HGB CONC 30.7 g/dl (32.0-36.5); MEAN CORPUSCULAR VOLUME 100.3 fl (80.0-96.0); MONO # 0.8 10^3/uL (0.0-0.8); MONO % 9.7 % (2.0-8.0); NEUTROPHILS # 4.7 10^3/uL (1.5-8.5); NEUTROPHILS % 60.8 % (36.0-66.0); PLATELET COUNT, AUTOMATED 132 10^3/uL (150-450); WHITE BLOOD COUNT 7.8 10^3/uL (4.0-10.0)
[2022-05-22 14:07] LABS: BILIRUBIN,TOTAL 0.5 MG/DL (0.2-1.0); CALCIUM LEVEL 9.2 MG/DL (8.8-10.2); CREATININE FOR GFR 3.18 MG/DL (0.70-1.30); GLOMERULAR FILTRATION RATE 20.5 (>42); POTASSIUM SERUM 5.6 MEQ/L (3.5-5.1)
[2022-05-22 14:08] LABS: ALBUMIN 3.1 GM/DL (3.2-5.2); CHOLESTEROL RISK RATIO 3.512 (<5); MAGNESIUM LEVEL 1.7 MG/DL (1.8-2.4); PROSTATIC SPECIFIC AG MONITOR 2.19 NG/ML (< 4.00); TOTAL PROTEIN 6.1 GM/DL (6.4-8.2)
[2022-05-22 14:12] LABS: CREATININE, URINE 96.3 MG/DL; MALB URINE SIEMENS 35.6 MG/L; MAU/CREAT RATIO 36.9 MCG/MG (0.0-30.0)
[2022-05-22 14:46] LABS: HEMOGLOBIN A1c 6.4 %
== END ==
LOC: M PLALAB 09:47
PROVIDERS: ATTEND Internal Medicine Hematology
DX: R97.20 Elevated prostate specific antigen [PSA] (principal); E11.3213 Type 2 diabetes mellitus with mild nonproliferative diabetic retinopathy with macular edema, bilateral; I12.9 Hypertensive chronic kidney disease with stage 1 through stage 4 chronic kidney disease, or unspecified chronic kidney disease; N18.4 Chronic kidney disease, stage 4 (severe); E11.22 Type 2 diabetes mellitus with diabetic chronic kidney disease; D69.6 Thrombocytopenia, unspecified

== ENCOUNTER → 2022-06-20 | Outpatient (CLI) | payer MEDICARE ==
[2022-06-20 12:10] LABS: CALCIUM LEVEL 8.9 MG/DL (8.8-10.2); CREATININE FOR GFR 2.95 MG/DL (0.70-1.30); GLOMERULAR FILTRATION RATE 22.3 (>42); POTASSIUM SERUM 5.2 MEQ/L (3.5-5.1)
== END ==
LOC: M PLALAB 08:48
PROVIDERS: ATTEND Internal Medicine Hematology
DX: N18.4 Chronic kidney disease, stage 4 (severe) (principal)

== ENCOUNTER → 2022-09-24 | Outpatient (CLI) | payer MEDICARE | LOC: M LABSMTC 09:57 | PROVIDERS: ATTEND Anesthesiology | DX: Z01.812 Encounter for preprocedural laboratory examination (principal); Z20.822 Contact with and (suspected) exposure to COVID-19 ==

== ENCOUNTER → 2022-11-08 | Outpatient (CLI) | payer MEDICARE ==
[~2022-11-08] MED LIST changes: +NORV5TAB PO; +OMEP-173 PO
== END ==
LOC: M LABSMTC 08:44
PROVIDERS: ATTEND Anesthesiology
DX: Z01.818 Encounter for other preprocedural examination (principal)

== ENCOUNTER 2022-11-10 07:51 | Day surgery (SDC) | payer MEDICARE ==
[~2022-11-10] VITALS: Ht 188 cm; Wt 113.4 kg
[2022-11-10] MEDS ORDERED: LR 1,000 ML IV SCH (08:50)
[2022-11-10] MEDS ORDERED: ACETAMINOPHEN 1000MG 100ML IV BAG As Ordered ONE (09:17)
[2022-11-10] MEDS ORDERED: LIDOCAINE 2% 100MG/5ML SDV (FOR ANES.) As Ordered ONE (09:19)
[2022-11-10] MEDS ORDERED: ONDANSETRON 4MG 2ML VIAL As Ordered ONE (09:19)
[2022-11-10] MEDS ORDERED: propofoL 200 MG/20 ML VIAL As Ordered ONE (09:19)
[2022-11-10] MEDS ORDERED: MIDAZOLAM INJ 2MG/2ML VIAL As Ordered ONE (09:22)
[2022-11-10] MEDS ORDERED: fentaNYL 100 MCG/2 ML INJECTION As Ordered ONE (09:22)
[2022-11-10] MEDS ORDERED: PHENYLEPHRINE 0.5% NASAL SPRAY 15 ML As Ordered ONE (09:37)
[2022-11-10] MEDS ORDERED: CIPRODEX OTIC SUSP 7.5ML As Ordered ONE (09:37)
[2022-11-10] MEDS ORDERED: fentaNYL 100 MCG/2 ML INJECTION IV PRN (10:40)
[2022-11-10] MEDS ORDERED: oxyCODONE 5MG TAB PO PRN (10:40)
[2022-11-10] MEDS ORDERED: MORPHINE 2 MG/ML 1ML VIAL IV PRN (10:40)
[2022-11-10] MEDS ORDERED: ONDANSETRON 4MG 2ML VIAL IV PRN (10:40)
[2022-11-10] MEDS ORDERED: LABETALOL 100MG/20ML VIAL As Ordered ONE (10:50)
[2022-11-10 12:19] VITALS: BP 156/70
== END 2022-11-10 12:20 | disposition home or self-care (01) ==
LOC: M SDC 07:51
PROVIDERS: ATTEND Otolaryngology
DX: H69.93 Unspecified Eustachian tube disorder, bilateral (principal); H91.93 Unspecified hearing loss, bilateral; I10 Essential (primary) hypertension; K21.9 Gastro-esophageal reflux disease without esophagitis; E11.9 Type 2 diabetes mellitus without complications; N18.9 Chronic kidney disease, unspecified; Z88.0 Allergy status to penicillin; Z88.2 Allergy status to sulfonamides; Z79.899 Other long term (current) drug therapy
CPT/HCPCS: 69436; J0131; J1100; J2250; J2405; J3010

== ENCOUNTER → 2022-11-21 | Outpatient (CLI) | payer MEDICARE ==
[2022-11-21 11:08] LABS: HEMATOCRIT 37.9 % (42.0-52.0); HEMOGLOBIN 11.9 g/dl (13.5-17.5); MEAN CORPUSCULAR HEMOGLOBIN 31.2 pg (27.0-33.0); MEAN CORPUSCULAR HGB CONC 31.4 g/dl (32.0-36.5); MEAN CORPUSCULAR VOLUME 99.2 fl (80.0-96.0); PLATELET COUNT, AUTOMATED 164 10^3/uL (150-450); RED BLOOD COUNT 3.82 10^6/uL (4.30-6.10); WHITE BLOOD COUNT 8.2 10^3/uL (4.0-10.0)
[2022-11-21 11:16] LABS: C REACTIVE PROTEIN QUANTITATIV < 0.40 MG/DL (<1.0)
[2022-11-21 11:21] LABS: ALBUMIN 3.3 G/DL (3.2-5.2); ALKALINE PHOSPHATASE 75 U/L (46-116); ALT/SGPT 22 U/L (7.0-40); AST/SGOT 24 U/L (<34); BILIRUBIN,TOTAL 0.5 MG/DL (0.3-1.2); BLOOD UREA NITROGEN 70 MG/DL (9-23); CALCIUM LEVEL 9.1 MG/DL (8.3-10.6); CARBON DIOXIDE LEVEL 26 MMOL/L (20-31); CHLORIDE LEVEL 109 MMOL/L (98-107); CHOLESTEROL LEVEL 140 MG/DL (<200); CHOLESTEROL RISK RATIO 3.88 (<5); FREE T4 1.25 NG/DL (0.89-1.76); GLOMERULAR FILTRATION RATE 19.6 (>42); GLUCOSE, FASTING 98 MG/DL (74-106); POTASSIUM SERUM 5.3 MMOL/L (3.5-5.1); SODIUM LEVEL 141 MMOL/L (136-145); THYROID STIMULATING HORMONE 0.663 uIU/ML (0.55-4.78); TOTAL 25(OH) VITAMIN D 23.5 NG/ML (20.0-100.0); TOTAL PROTEIN 6.1 G/DL (5.7-8.2); TRIGLYCERIDES LEVEL 90 MG/DL (<150); VITAMIN B12 LEVEL 409 PG/ML (211-911)
[2022-11-21 11:28] LABS: HEMOGLOBIN A1c 5.9 % (4.0-6.0)
[2022-11-21 11:36] LABS: MAU/CREAT RATIO 101.4 MCG/MG (0.0-30.0)
== END ==
LOC: M PLALAB 07:30
PROVIDERS: ATTEND Internal Medicine Hematology
DX: E11.3213 Type 2 diabetes mellitus with mild nonproliferative diabetic retinopathy with macular edema, bilateral (principal)

== ENCOUNTER → 2023-04-17 | Outpatient (CLI) | payer MEDICARE | LOC: M RAD 08:41 | PROVIDERS: ATTEND Internal Medicine Nephrology | DX: I70.1 Atherosclerosis of renal artery (principal) ==

== ENCOUNTER → 2023-05-25 | Outpatient (CLI) | payer MEDICARE ==
[2023-05-25 10:13] LABS: HEMATOCRIT 40.5 % (42.0-52.0); HEMOGLOBIN 13.3 g/dl (13.5-17.5); MEAN CORPUSCULAR HEMOGLOBIN 30.9 pg (27.0-33.0); MEAN CORPUSCULAR HGB CONC 32.8 g/dl (32.0-36.5); MEAN CORPUSCULAR VOLUME 94.2 fl (80.0-96.0); PLATELET COUNT, AUTOMATED 168 10^3/uL (150-450); WHITE BLOOD COUNT 9.1 10^3/uL (4.0-10.0)
[2023-05-25 10:36] LABS: HEMOGLOBIN A1c 5.4 % (4.0-6.0)
[2023-05-25 10:43] LABS: C REACTIVE PROTEIN QUANTITATIV < 0.40 MG/DL (<1.0); CREATININE, URINE 79.9 MG/DL; MAU/CREAT RATIO 86.3 MCG/MG (0.0-30.0)
[2023-05-25 10:44] LABS: FREE T4 1.13 NG/DL (0.89-1.76); THYROID STIMULATING HORMONE 1.282 uIU/ML (0.55-4.78)
[2023-05-25 10:45] LABS: ALBUMIN 3.5 G/DL (3.2-5.2); ALKALINE PHOSPHATASE 88 U/L (46-116); ALT/SGPT 13 U/L (7.0-40); AST/SGOT 20 U/L (<34); BILIRUBIN,TOTAL 0.5 MG/DL (0.3-1.2); BLOOD UREA NITROGEN 70 MG/DL (9-23); CALCIUM LEVEL 8.8 MG/DL (8.3-10.6); CARBON DIOXIDE LEVEL 21 MMOL/L (20-31); CHLORIDE LEVEL 111 MMOL/L (98-107); CHOLESTEROL LEVEL 143 MG/DL (<200); CHOLESTEROL RISK RATIO 3.48 (<5); CREATININE FOR GFR 3.01 MG/DL (0.70-1.30); GLOMERULAR FILTRATION RATE 21.7 (>42); GLUCOSE, FASTING 126 MG/DL (74-106); LDL CHOLESTEROL 84.2 MG/DL (<100); POTASSIUM SERUM 4.9 MMOL/L (3.5-5.1); SODIUM LEVEL 141 MMOL/L (136-145); TOTAL 25(OH) VITAMIN D 19.1 NG/ML (20.0-100.0); TOTAL PROTEIN 6.3 G/DL (5.7-8.2); TRIGLYCERIDES LEVEL 89 MG/DL (<150)
[2023-05-25 10:46] LABS: VITAMIN B12 LEVEL 483 PG/ML (211-911)
== END ==
LOC: M PLALAB 08:01
PROVIDERS: ATTEND Internal Medicine Hematology
DX: E11.3213 Type 2 diabetes mellitus with mild nonproliferative diabetic retinopathy with macular edema, bilateral (principal)

== ENCOUNTER 2023-11-28 09:05 | Emergency (ER) | payer MEDICARE ==
[~2023-11-28] VITALS: Ht 188 cm; Wt 109.9 kg
[2023-11-28] MEDS: ASPIRIN 81MG CHEW TABLET PO ONE ×2 (09:51→10:29)
[2023-11-28 09:52] VITALS: BP 131/62
[2023-11-28 09:52] LABS: BASO % 0.3 % (0.0-1.0); EOS # 0.2 10^3/uL (0.0-0.5); EOS % 2.5 % (0.0-3.0); HEMATOCRIT 37.3 % (42.0-52.0); HEMOGLOBIN 12.5 g/dl (13.5-17.5); LYMPH % 20.7 % (24.0-44.0); MEAN CORPUSCULAR HEMOGLOBIN 31.5 pg (27.0-33.0); MEAN CORPUSCULAR HGB CONC 33.5 g/dl (32.0-36.5); MONO # 1.1 10^3/uL (0.0-0.8); MONO % 11.1 % (2.0-8.0); NEUTROPHILS # 6.2 10^3/uL (1.5-8.5); NEUTROPHILS % 65.1 % (36.0-66.0); PLATELET COUNT, AUTOMATED 138 10^3/uL (150-450); RED BLOOD COUNT 3.97 10^6/uL (4.30-6.10); WHITE BLOOD COUNT 9.5 10^3/uL (4.0-10.0)
[2023-11-28] MEDS: NITROGLYCERIN 0.4MG SUBL TABLET SL PRN (09:52)
[2023-11-28] MEDS ORDERED: ALLE60TA69 PO (09:59)
[2023-11-28] MEDS ORDERED: ROCA0.25 PO (09:59)
[2023-11-28] MEDS ORDERED: HYDR50TA46 (09:59)
[2023-11-28] MEDS ORDERED: ESOM40CA35 (09:59)
[2023-11-28] MEDS ORDERED: JARD1TAB (09:59)
[2023-11-28 10:15] LABS: CK-MB VALUE MASS 2.9 NG/ML (<3.6)
[2023-11-28] MEDS ORDERED: ASPIRIN 81MG CHEW TABLET PO ONE (10:15)
[2023-11-28 10:17] LABS: ALBUMIN 3.6 G/DL (3.2-5.2); BILIRUBIN,DIRECT 0.2 MG/DL (<0.4); BILIRUBIN,TOTAL 0.4 MG/DL (0.3-1.2); CALCIUM LEVEL 8.9 MG/DL (8.3-10.6); CREATININE FOR GFR 5.22 MG/DL (0.70-1.30); GLOMERULAR FILTRATION RATE 11.5 (>42); MB/CK RELATIVE INDEX 5.17 (< OR =4); TOTAL PROTEIN 6.1 G/DL (5.7-8.2)
[2023-11-28] MEDS: MORPHINE 2 MG/ML 1ML VIAL IV ONE (10:30)
[2023-11-28] MEDS: HEPARIN SOD (PORCINE) 5000UNITS/ML 1ML VIAL/SYRINGE IV ONE (10:49)
[2023-11-28] MEDS: HEPARIN DRIP 25,000 UNITS in IV 1 EA IV SCH (10:50)
[2023-11-28 11:16] LABS: INR 1.03; PARTIAL THROMBOPLASTIN TIME 26.1 SECONDS (24.8-34.2); PROTHROMBIN TIME 13.1 SECONDS (12.5-14.5)
[2023-11-28] MEDS: MORPHINE 4 MG/ML 1ML VIAL IV ONE (11:25)
[2023-11-28 11:29] LABS: CK-MB VALUE MASS 6.7 NG/ML (<3.6); MB/CK RELATIVE INDEX 5.63 (< OR =4)
[2023-11-28] MEDS: NS 500 ML IV ONE ×2 (11:35→12:36)
[2023-11-28] MEDS: fentaNYL 100 MCG/2 ML INJECTION IV ONE (12:44)
[2023-11-28] MEDS: MORPHINE 2 MG/ML 1ML VIAL IV PRN (13:42)
[2023-11-28 14:45] VITALS: O2SAT 97
[2023-11-28 14:50] VITALS: BP 110/64
[2023-11-28 14:59] VITALS: TEMP 96.4
[2023-11-28] MEDS: TENECTEPLASE 50 MG/10 ML VIAL IV ONE (15:02)
== END 2023-11-28 15:30 | disposition short-term general hospital (02) ==
LOC: M ED 10:06
DX: I21.4 Non-ST elevation (NSTEMI) myocardial infarction (principal); I25.84 Coronary atherosclerosis due to calcified coronary lesion; E07.9 Disorder of thyroid, unspecified; I70.1 Atherosclerosis of renal artery; K22.70 Barrett's esophagus without dysplasia; I12.9 Hypertensive chronic kidney disease with stage 1 through stage 4 chronic kidney disease, or unspecified chronic kidney disease; E11.9 Type 2 diabetes mellitus without complications; Z79.82 Long term (current) use of aspirin; Z79.4 Long term (current) use of insulin; Z79.899 Other long term (current) drug therapy; Z88.0 Allergy status to penicillin; Z88.2 Allergy status to sulfonamides; Z88.1 Allergy status to other antibiotic agents
CPT/HCPCS: 71045; 71250; 74176; 80048; 80076; 82550; 82553; 83605; 83690; 84484; 85025; 85610; 85730; 86850; 86900; 86901; 87040; 87077; 87486; 87581; 87633; 87798; 93005; 93041; 93306; 94760; 96365; 96366; 96375; 96376; 99285; J3010; J3101

== ENCOUNTER 2023-12-07 10:54 | Inpatient (IN) | payer MEDICARE ==
[~2023-12-07] VITALS: Ht 188 cm; Wt 105.7 kg
[~2023-12-07 10:54] MED LIST changes: +ALLE60TA69 PO; +ESOM40CA35 PO; +HYDR50TA46; +JARD1TAB PO; +ROCA0.25 PO
[2023-12-18] MEDS ORDERED: DEXTROSE 50% 50ML SYRINGE IV PRN (14:20)
[2023-12-18] MEDS ORDERED: GLUCAGON INJ 1MG VIAL SC PRN (14:20)
[2023-12-18] MEDS ORDERED: GLUCOSE 4 GM CHEW PO PRN (14:20)
[2023-12-18 14:46] VITALS: BP 120/56; TEMP 97.8; O2SAT 98
[2023-12-18] MEDS ORDERED: FEXOFENADINE 60MG TAB PO PRN (16:45)
[2023-12-18] MEDS ORDERED: INSULIN LISPRO (NovoLOG) PER UNIT SC SCH (17:30)
[2023-12-18 19:28] VITALS: BP 164/64; TEMP 97.6; O2SAT 98
[2023-12-18] MEDS ORDERED: ELIQ5TAB PO (22:28)
[2023-12-18] MEDS ORDERED: ASCO500T PO (22:28)
[2023-12-18] MEDS ORDERED: FERR1TAB8 PO (22:28)
[2023-12-18] MEDS ORDERED: FOLI1TAB11 PO (22:28)
[2023-12-18] MEDS ORDERED: METO1TAB32 PO (22:28)
[2023-12-18] MEDS ORDERED: QUET1TAB17 PO (22:28)
[2023-12-18] MEDS ORDERED: FURO40TA2 PO (22:28)
[2023-12-18] MEDS ORDERED: AMIO200T49 PO (22:28)
[2023-12-18] MEDS ORDERED: DIPH-435 PO (22:28)
[2023-12-18] MEDS ORDERED: MULT-90 PO (22:28)
[2023-12-18] MEDS ORDERED: ACET1TAB55 PO (22:28)
[2023-12-18] MEDS ORDERED: LANTINJ4 SC (22:28)
[2023-12-18] MEDS ORDERED: HOME MED LIST COMPLETE! XX SCH ×2 (22:40→23:55)
[2023-12-18] MEDS ORDERED: METO1TAB87 PO (23:52)
[2023-12-19] MEDS: APIXABAN 5 MG TAB (ELIQUIS) PO SCH (00:10)
[2023-12-19] MEDS: QUEtiapine FUMARATE 12.5 MG HALF-TAB PO SCH (00:10)
[2023-12-19] MEDS: SENOKOT S TAB PO SCH (00:10)
[2023-12-19] MEDS: FERROUS SULFATE 325MG TAB PO SCH (00:10)
[2023-12-19] MEDS: METOPROLOL TART 25 MG TABLET PO SCH (00:11)
[2023-12-19 06:21] VITALS: BP 141/68; TEMP 96.8; O2SAT 95
[2023-12-19 07:04] LABS: HEMATOCRIT 25.7 % (42.0-52.0); HEMOGLOBIN 8.2 g/dl (13.5-17.5); MEAN CORPUSCULAR HEMOGLOBIN 31.7 pg (27.0-33.0); MEAN CORPUSCULAR HGB CONC 31.9 g/dl (32.0-36.5); MEAN CORPUSCULAR VOLUME 99.2 fl (80.0-96.0); PLATELET COUNT, AUTOMATED 367 10^3/uL (150-450); RED BLOOD COUNT 2.59 10^6/uL (4.30-6.10); WHITE BLOOD COUNT 14.6 10^3/uL (4.0-10.0)
[2023-12-19 07:33] LABS: C REACTIVE PROTEIN QUANTITATIV 9.3 MG/DL (<1.0)
[2023-12-19 07:34] LABS: ALBUMIN 2.2 G/DL (3.2-5.2); BILIRUBIN,TOTAL 1.4 MG/DL (0.3-1.2); CALCIUM LEVEL 8.3 MG/DL (8.3-10.6); CREATININE FOR GFR 2.61 MG/DL (0.70-1.30); GLOMERULAR FILTRATION RATE 25.6 (>42); MAGNESIUM LEVEL 1.9 MG/DL (1.8-2.4); PHOSPHORUS LEVEL 3.5 MG/DL (2.4-5.1); POTASSIUM SERUM 3.8 MMOL/L (3.5-5.1); TOTAL PROTEIN 5.1 G/DL (5.7-8.2)
[2023-12-19 07:42] LABS: ERYTHROCYTE SEDIMENTATION RATE 28 mm/hr (0-20)
[2023-12-19] MEDS: INSULIN LISPRO (NovoLOG) PER UNIT SC SCH (07:58)
[2023-12-19] MEDS: LEVEMIR (INSULIN DETEMIR) 1 UNITS/0.01ML SC SCH (07:59)
[2023-12-19] MEDS: MIRALAX *UNIT DOSE* 17GM PACKET PO SCH (09:00)
[2023-12-19] MEDS ORDERED: allopurinoL 300 MG TAB PO SCH (09:00)
[2023-12-19] MEDS ORDERED: LEVEMIR (INSULIN DETEMIR) 1 UNITS/0.01ML SC SCH (09:00)
[2023-12-19] MEDS ORDERED: FUROSEMIDE 40 MG TAB PO SCH ×2 (09:00)
[2023-12-19] MEDS: FOLIC ACID 1MG TAB PO SCH (09:36)
[2023-12-19] MEDS: MULTIVITAMINS/MINERALS THERAP 1 TAB PO SCH (09:36)
[2023-12-19] MEDS: ASCORBIC ACID 500 MG TAB PO SCH (09:37)
[2023-12-19] MEDS: PANTOPRAZOLE 40MG TAB (PROTONIX) PO SCH (09:37)
[2023-12-19] MEDS: FINASTERIDE 5MG TAB PO SCH (09:38)
[2023-12-19] MEDS: allopurinoL 300 MG TAB PO SCH (09:38)
[2023-12-19] MEDS: ASPIRIN 81MG CHEW TABLET PO SCH (09:38)
[2023-12-19] MEDS: AMIODARONE 200 MG TAB (PACERONE) PO SCH (09:38)
[2023-12-19] MEDS: CALCITRIOL 0.25 MCG CAP (S0169) PO SCH (09:38)
[2023-12-19] MEDS: ACETAMINOPHEN TAB 650MG DOSE (2X325MG) PO PRN (10:21)
[2023-12-19] MEDS: FUROSEMIDE 40 MG TAB PO SCH (12:36)
[2023-12-19] MEDS: DAPTOmycin 800 MG in NS 50 ML IV SCH (12:37)
[2023-12-19] MEDS: CEFEPIME HCL 1 GM in D5W MINI-BAG PLUS 50 ML IV SCH (13:26)
[2023-12-19 14:10] VITALS: BP 138/72; TEMP 97.1; O2SAT 98
[2023-12-19 19:35] VITALS: BP 139/65; TEMP 97.2; O2SAT 96
[2023-12-20] MEDS ORDERED: UNRESOLVED CLARIFICATION ENTRY XX SCH (00:01)
[2023-12-20] MEDS: SODIUM CHLORIDE 0.9% INJ 10 ML SYR IV SCH (06:24)
[2023-12-20 06:33] VITALS: BP 132/66; TEMP 97.2; O2SAT 96
[2023-12-20 06:42] LABS: HEMATOCRIT 24.2 % (42.0-52.0); HEMOGLOBIN 7.8 g/dl (13.5-17.5); MEAN CORPUSCULAR HGB CONC 32.2 g/dl (32.0-36.5); MEAN CORPUSCULAR VOLUME 99.2 fl (80.0-96.0); PLATELET COUNT, AUTOMATED 355 10^3/uL (150-450); RED BLOOD COUNT 2.44 10^6/uL (4.30-6.10); WHITE BLOOD COUNT 13.6 10^3/uL (4.0-10.0)
[2023-12-20 07:07] LABS: CALCIUM LEVEL 8.2 MG/DL (8.3-10.6); CREATININE FOR GFR 2.52 MG/DL (0.70-1.30); GLOMERULAR FILTRATION RATE 26.6 (>42); MAGNESIUM LEVEL 1.7 MG/DL (1.8-2.4); POTASSIUM SERUM 3.7 MMOL/L (3.5-5.1)
[2023-12-20] MEDS: CALCITRIOL 0.25 MCG CAP (S0169) PO SCH (08:45)
[2023-12-20] MEDS: POTASSIUM CHLORIDE 10MEQ SR TABLET PO ONE (11:50)
[2023-12-20 14:00] VITALS: BP 138/70; TEMP 97.5; O2SAT 98
[2023-12-20] MEDS: FUROSEMIDE 40 MG TAB PO SCH (15:19)
[2023-12-20] MEDS: INSULIN LISPRO (NovoLOG) PER UNIT SC SCH ×2 (18:23→20:11)
[2023-12-20 19:32] VITALS: BP 148/67; TEMP 97.6; O2SAT 97
[2023-12-20] MEDS: traZODone 50 MG TAB PO SCH (21:32)
[2023-12-21] MEDS: QUEtiapine FUMARATE 12.5 MG HALF-TAB PO PRN (01:08)
[2023-12-21 05:47] LABS: HEMATOCRIT 25.8 % (42.0-52.0); HEMOGLOBIN 8.2 g/dl (13.5-17.5); MEAN CORPUSCULAR HEMOGLOBIN 31.4 pg (27.0-33.0); MEAN CORPUSCULAR HGB CONC 31.8 g/dl (32.0-36.5); MEAN CORPUSCULAR VOLUME 98.9 fl (80.0-96.0); PLATELET COUNT, AUTOMATED 348 10^3/uL (150-450); RED BLOOD COUNT 2.61 10^6/uL (4.30-6.10); WHITE BLOOD COUNT 14.3 10^3/uL (4.0-10.0)
[2023-12-21 06:13] LABS: ALBUMIN 2.3 G/DL (3.2-5.2); CALCIUM LEVEL 8.6 MG/DL (8.3-10.6); CREATININE FOR GFR 2.53 MG/DL (0.70-1.30); GLOMERULAR FILTRATION RATE 26.5 (>42); MAGNESIUM LEVEL 1.7 MG/DL (1.8-2.4); PERCENT SATURATION 13.6 % (19.7-50.0); PHOSPHORUS LEVEL 3.5 MG/DL (2.4-5.1); POTASSIUM SERUM 3.7 MMOL/L (3.5-5.1)
[2023-12-21 06:23] VITALS: BP 137/67; TEMP 96.2; O2SAT 96
[2023-12-21 06:32] LABS: FERRITIN 1316.6 NG/ML (10.5-307.3)
[2023-12-21] MEDS: FERRIC CARBOXYMALTOSE INJ 750 MG, VIAL MATE ADAPTER 1 EACH in NS 250 ML IV ONE (12:33)
[2023-12-21 14:03] VITALS: BP 123/59; TEMP 97.8; O2SAT 96
[2023-12-21 20:45] VITALS: BP 148/70; TEMP 98.1; O2SAT 96
[2023-12-22 06:11] VITALS: BP 132/66; TEMP 98.2; O2SAT 94
[2023-12-22] MEDS: DARBEPOETIN 100MCG/0.5ML *NON-DIALYSIS* SYRINGE SC SCH (09:15)
[2023-12-22 14:00] VITALS: BP 132/64; TEMP 97.7; O2SAT 95
[2023-12-22] MEDS: SODIUM CHLORIDE 0.9% INJ 10 ML SYR IV PRN (14:26)
[2023-12-22 20:00] VITALS: BP 144/64; TEMP 97.9; O2SAT 96
[2023-12-23 06:00] VITALS: BP 138/68; TEMP 98; O2SAT 98
[2023-12-23] MEDS: MIRALAX *UNIT DOSE* 17GM PACKET PO PRN (13:52)
[2023-12-23 14:00] VITALS: BP 127/63; TEMP 97.2; O2SAT 97
[2023-12-23 20:00] VITALS: BP 167/83; TEMP 97.2; O2SAT 98
[2023-12-24 05:41] LABS: HEMATOCRIT 27.9 % (42.0-52.0); MEAN CORPUSCULAR HEMOGLOBIN 32.5 pg (27.0-33.0); MEAN CORPUSCULAR HGB CONC 32.3 g/dl (32.0-36.5); MEAN CORPUSCULAR VOLUME 100.7 fl (80.0-96.0); PLATELET COUNT, AUTOMATED 313 10^3/uL (150-450); RED BLOOD COUNT 2.77 10^6/uL (4.30-6.10); WHITE BLOOD COUNT 16.3 10^3/uL (4.0-10.0)
[2023-12-24 05:49] VITALS: BP 155/80; TEMP 97.8; O2SAT 97
[2023-12-24 06:07] LABS: ALBUMIN 2.4 G/DL (3.2-5.2); CALCIUM LEVEL 8.4 MG/DL (8.3-10.6); CREATININE FOR GFR 2.48 MG/DL (0.70-1.30); GLOMERULAR FILTRATION RATE 27.1 (>42); MAGNESIUM LEVEL 1.5 MG/DL (1.8-2.4); PHOSPHORUS LEVEL 2.9 MG/DL (2.4-5.1); POTASSIUM SERUM 3.8 MMOL/L (3.5-5.1); PTH INTACT 111.6 PG/ML (18.5-88.0)
[2023-12-24] MEDS: MAG SULF 1GM/100ML (MAG RUN) 1 GM in IV 1 EA IV SCH (12:11)
[2023-12-24 14:00] VITALS: BP 134/65; TEMP 97.4; O2SAT 97
[2023-12-24 20:00] VITALS: BP 142/64; TEMP 97.8; O2SAT 100
[2023-12-24 21:19] LABS: C REACTIVE PROTEIN QUANTITATIV 5.1 MG/DL (<1.0)
[2023-12-24] MEDS: traZODone 50 MG TAB PO SCH (22:03)
[2023-12-25 06:02] VITALS: BP 144/72; TEMP 97.7; O2SAT 97
[2023-12-25 06:36] LABS: HEMOGLOBIN 9.2 g/dl (13.5-17.5); MEAN CORPUSCULAR HEMOGLOBIN 32.3 pg (27.0-33.0); MEAN CORPUSCULAR HGB CONC 31.7 g/dl (32.0-36.5); MEAN CORPUSCULAR VOLUME 101.8 fl (80.0-96.0); PLATELET COUNT, AUTOMATED 303 10^3/uL (150-450); RED BLOOD COUNT 2.85 10^6/uL (4.30-6.10); WHITE BLOOD COUNT 15.2 10^3/uL (4.0-10.0)
[2023-12-25 06:46] LABS: ERYTHROCYTE SEDIMENTATION RATE 51 mm/hr (0-20)
[2023-12-25 07:01] LABS: C REACTIVE PROTEIN QUANTITATIV 4.8 MG/DL (<1.0)
[2023-12-25 07:03] LABS: CALCIUM LEVEL 9.2 MG/DL (8.3-10.6); CREATININE FOR GFR 2.42 MG/DL (0.70-1.30); GLOMERULAR FILTRATION RATE 27.9 (>42); MAGNESIUM LEVEL 1.9 MG/DL (1.8-2.4); POTASSIUM SERUM 3.7 MMOL/L (3.5-5.1)
[2023-12-25] MEDS: LEVEMIR (INSULIN DETEMIR) 1 UNITS/0.01ML SC SCH (08:50)
[2023-12-25 14:00] VITALS: BP 116/56; TEMP 97.6; O2SAT 96
[2023-12-25 19:17] VITALS: TEMP 97.5; O2SAT 92
[2023-12-25 19:24] VITALS: BP 159/75; TEMP 97.8; O2SAT 95
[2023-12-26 05:40] VITALS: BP 121/65; TEMP 97.4; O2SAT 91
[2023-12-26 06:11] LABS: HEMATOCRIT 27.9 % (42.0-52.0); HEMOGLOBIN 8.9 g/dl (13.5-17.5); MEAN CORPUSCULAR HEMOGLOBIN 32.7 pg (27.0-33.0); MEAN CORPUSCULAR HGB CONC 31.9 g/dl (32.0-36.5); MEAN CORPUSCULAR VOLUME 102.6 fl (80.0-96.0); PLATELET COUNT, AUTOMATED 290 10^3/uL (150-450); RED BLOOD COUNT 2.72 10^6/uL (4.30-6.10); WHITE BLOOD COUNT 14.3 10^3/uL (4.0-10.0)
[2023-12-26 06:26] LABS: ERYTHROCYTE SEDIMENTATION RATE 43 mm/hr (0-20)
[2023-12-26 06:30] LABS: ALBUMIN 2.5 G/DL (3.2-5.2); CREATININE FOR GFR 2.71 MG/DL (0.70-1.30); GLOMERULAR FILTRATION RATE 24.5 (>42); POTASSIUM SERUM 3.8 MMOL/L (3.5-5.1); TOTAL PROTEIN 5.5 G/DL (5.7-8.2)
[2023-12-26] MEDS ORDERED: FUROSEMIDE 40 MG TAB PO SCH (09:00)
[2023-12-26 11:39] VITALS: O2SAT 91
[2023-12-26] MEDS ORDERED: DARB10SYRN SC (12:29)
[2023-12-26] MEDS ORDERED: LANTINJ4 SC (12:29)
[2023-12-26] MEDS ORDERED: AMIO200T49 PO (12:29)
[2023-12-26] MEDS ORDERED: METO1TAB87 PO (12:29)
[2023-12-26] MEDS ORDERED: ATOR1TAB21 PO (12:29)
[2023-12-26] MEDS ORDERED: INSUHUMDS SQ (12:29)
[2023-12-26] MEDS ORDERED: TRAZ-252 PO (12:29)
[2023-12-26] MEDS ORDERED: FURO40TA2 PO (12:29)
[2023-12-26] MEDS ORDERED: ELIQ5TAB PO (12:29)
[2023-12-26 14:00] VITALS: BP 129/65; TEMP 97.4; O2SAT 100
[2023-12-26 20:36] VITALS: BP 148/50; TEMP 97; O2SAT 95
[2023-12-26] MEDS: ATORVASTATIN 20 MG TAB PO SCH (20:39)
[2023-12-26 20:58] VITALS: BP 150/70; TEMP 97; O2SAT 95
[2023-12-26 22:48] VITALS: O2SAT 0
[2023-12-27 06:12] VITALS: BP 140/66; TEMP 96.7; O2SAT 99
[2023-12-27 09:10] VITALS: BP 140/66
[2023-12-27] MEDS: NEOSPORIN TOP OINT 15GM TOP STA (09:10)
== END 2023-12-27 10:25 | disposition home or self-care (01) | DRG 91 ==
LOC: M PM&R 12-18 15:10
PROVIDERS: ADMIT Student in an Organized Health Care Education/Training Program; ATTEND Student in an Organized Health Care Education/Training Program
DX: R26.89 Other abnormalities of gait and mobility (principal); I21.4 Non-ST elevation (NSTEMI) myocardial infarction; J90 Pleural effusion, not elsewhere classified; N25.81 Secondary hyperparathyroidism of renal origin; I25.10 Atherosclerotic heart disease of native coronary artery without angina pectoris; Z95.1 Presence of aortocoronary bypass graft; I12.9 Hypertensive chronic kidney disease with stage 1 through stage 4 chronic kidney disease, or unspecified chronic kidney disease; I48.0 Paroxysmal atrial fibrillation; D72.829 Elevated white blood cell count, unspecified; N18.30 Chronic kidney disease, stage 3 unspecified; E11.22 Type 2 diabetes mellitus with diabetic chronic kidney disease; D50.9 Iron deficiency anemia, unspecified; M10.9 Gout, unspecified; N40.0 Benign prostatic hyperplasia without lower urinary tract symptoms; K22.70 Barrett's esophagus without dysplasia; Z88.2 Allergy status to sulfonamides; Z88.0 Allergy status to penicillin; Z88.8 Allergy status to other drugs, medicaments and biological substances; Z79.899 Other long term (current) drug therapy; Z79.4 Long term (current) use of insulin; K21.9 Gastro-esophageal reflux disease without esophagitis; E78.5 Hyperlipidemia, unspecified

== ENCOUNTER → 2024-01-01 | Outpatient (CLI) | payer MEDICARE ==
[~2024-01-01] MED LIST changes: +ACET1TAB55 PO; +AMIO200T49 PO; +ASCO500T PO; +DARB10SYRN SC; +DIPH-435 PO; +ELIQ5TAB PO; +FERR1TAB8 PO; +FOLI1TAB11 PO; +FURO40TA2 PO; +LANTINJ4 SC; +METO1TAB32 PO; +METO1TAB87 PO; +MULT-90 PO; +QUET1TAB17 PO; +TRAZ-252 PO
[2024-01-01 11:13] LABS: BASO # 0.1 10^3/uL (0.0-0.2); BASO % 0.7 % (0.0-1.0); EOS # 2.6 10^3/uL (0.0-0.5); EOS % 17.1 % (0.0-3.0); HEMATOCRIT 33.4 % (42.0-52.0); HEMOGLOBIN 10.9 g/dl (13.5-17.5); LYMPH # 1.7 10^3/uL (1.5-5.0); LYMPH % 11.4 % (24.0-44.0); MEAN CORPUSCULAR HEMOGLOBIN 33.9 pg (27.0-33.0); MEAN CORPUSCULAR HGB CONC 32.6 g/dl (32.0-36.5); MEAN CORPUSCULAR VOLUME 103.7 fl (80.0-96.0); MONO # 1.7 10^3/uL (0.0-0.8); MONO % 11.2 % (2.0-8.0); NEUTROPHILS % 59.1 % (36.0-66.0); PLATELET COUNT, AUTOMATED 234 10^3/uL (150-450); RED BLOOD COUNT 3.22 10^6/uL (4.30-6.10); WHITE BLOOD COUNT 15.3 10^3/uL (4.0-10.0)
[2024-01-01 11:33] LABS: ALKALINE PHOSPHATASE 109 U/L (46-116); ALT/SGPT 24 U/L (7.0-40); AST/SGOT 25 U/L (<34); BILIRUBIN,TOTAL 1.1 MG/DL (0.3-1.2); BLOOD UREA NITROGEN 95 MG/DL (9-23); CALCIUM LEVEL 9.1 MG/DL (8.3-10.6); CARBON DIOXIDE LEVEL 25 MMOL/L (20-31); CHLORIDE LEVEL 102 MMOL/L (98-107); CHOLESTEROL LEVEL 156 MG/DL (<200); CREATININE FOR GFR 2.84 MG/DL (0.70-1.30); GLOMERULAR FILTRATION RATE 23.2 (>42); GLUCOSE, FASTING 135 MG/DL (74-106); LDL CHOLESTEROL 95.6 MG/DL (<100); POTASSIUM SERUM 4.1 MMOL/L (3.5-5.1); SODIUM LEVEL 137 MMOL/L (136-145); TOTAL PROTEIN 6.4 G/DL (5.7-8.2); TRIGLYCERIDES LEVEL 107 MG/DL (<150)
[2024-01-01 11:39] LABS: CREATININE, URINE 77.1 MG/DL; MAU/CREAT RATIO 50.5 MCG/MG (0.0-30.0)
[2024-01-03 16:06] LABS: FOLATE > 24.0 NG/ML (>5.4); VITAMIN B12 LEVEL 924 PG/ML (211-911)
== END ==
LOC: M PLALAB 07:59
PROVIDERS: ATTEND Family Medicine
DX: E11.3213 Type 2 diabetes mellitus with mild nonproliferative diabetic retinopathy with macular edema, bilateral (principal); D72.19 Other eosinophilia; D53.9 Nutritional anemia, unspecified

== ENCOUNTER → 2024-01-11 | Outpatient (CLI) | payer MEDICARE ==
[~2024-01-11] MED LIST changes: +AZIT500T5 PO; +CARV6.25 PO; +ELIQ2.5T PO; +ENTR1TAB PO; +INSUHUMDS SC; +LOPE2CA PO; +TORS10TA3 PO; +XIFA550T PO
== END ==
LOC: M EKG 08:44
PROVIDERS: ATTEND Internal Medicine Cardiovascular Disease
DX: I44.0 Atrioventricular block, first degree (principal); I48.0 Paroxysmal atrial fibrillation

== ENCOUNTER 2024-01-12 08:46 | Inpatient (IN) | payer MEDICARE ==
[~2024-01-12] VITALS: Ht 188 cm; Wt 231.0 kg
[~2024-01-12 08:46] MED LIST changes: -AZIT500T5 PO; -CARV6.25 PO; -ELIQ2.5T PO; -ENTR1TAB PO; -INSUHUMDS SC; -LOPE2CA PO; -TORS10TA3 PO; -XIFA550T PO
[2024-01-12 09:57] LABS: HEMATOCRIT 34.7 % (42.0-52.0); HEMOGLOBIN 11.9 g/dl (13.5-17.5); MEAN CORPUSCULAR HEMOGLOBIN 33.6 pg (27.0-33.0); MEAN CORPUSCULAR HGB CONC 34.3 g/dl (32.0-36.5); PLATELET COUNT, AUTOMATED 214 10^3/uL (150-450); RED BLOOD COUNT 3.54 10^6/uL (4.30-6.10); WHITE BLOOD COUNT 9.5 10^3/uL (4.0-10.0)
[2024-01-12 10:29] LABS: ALBUMIN 2.6 G/DL (3.2-5.2); BILIRUBIN,TOTAL 0.6 MG/DL (0.3-1.2); CALCIUM LEVEL 8.1 MG/DL (8.3-10.6); CREATININE FOR GFR 2.87 MG/DL (0.70-1.30); GLOMERULAR FILTRATION RATE 22.9 (>42); POTASSIUM SERUM 3.7 MMOL/L (3.5-5.1)
[2024-01-12 10:37] LABS: INR 1.22; PROTHROMBIN TIME 15.1 SECONDS (12.5-14.5)
[2024-01-12 11:13] LABS: THYROID STIMULATING HORMONE 1.267 uIU/ML (0.55-4.78)
[2024-01-12 11:15] LABS: MB/CK RELATIVE INDEX 7.69 (< OR =4)
[2024-01-12] MEDS: NS 1,000 ML IV ONE (11:50)
[2024-01-12] MEDS ORDERED: INSUHUMDS SC (13:36)
[2024-01-12] MEDS ORDERED: LANTINJ4 SC (13:36)
[2024-01-12] MEDS ORDERED: HOME MED LIST COMPLETE! XX SCH (13:50)
[2024-01-12] MEDS: NS 500 ML IV ONE (13:58)
[2024-01-12 14:55] LABS: BASO # 0.1 10^3/uL (0.0-0.2); BASO % 0.5 % (0.0-1.0); EOS # 0.9 10^3/uL (0.0-0.5); EOS % 9.8 % (0.0-3.0); LYMPH # 1.4 10^3/uL (1.5-5.0); LYMPH % 14.7 % (24.0-44.0); MONO # 1.6 10^3/uL (0.0-0.8); MONO % 16.9 % (2.0-8.0); NEUTROPHILS # 5.3 10^3/uL (1.5-8.5); NEUTROPHILS % 57.9 % (36.0-66.0)
[2024-01-12] MEDS ORDERED: GLUCAGON INJ 1MG VIAL SC PRN (16:00)
[2024-01-12] MEDS ORDERED: DEXTROSE 50% 50ML SYRINGE IV PRN (16:00)
[2024-01-12] MEDS ORDERED: GLUCOSE 4 GM CHEW PO PRN (16:00)
[2024-01-12 16:20] VITALS: BP 146/93; TEMP 97.3; O2SAT 99
[2024-01-12] MEDS: NS 1,000 ML IV SCH (16:43)
[2024-01-12] MEDS: INSULIN LISPRO (NovoLOG) PER UNIT SC SCH ×2 (17:30)
[2024-01-12] MEDS: MAG SULF 1GM/100ML (MAG RUN) 1 GM in IV 1 EA IV SCH (17:40)
[2024-01-12] MEDS: AMIODARONE 200 MG TAB (PACERONE) PO SCH (17:41)
[2024-01-12] MEDS: CALCITRIOL 0.25 MCG CAP (S0169) PO SCH (17:41)
[2024-01-12] MEDS ORDERED: CARV6.25 PO (18:06)
[2024-01-12] MEDS ORDERED: TORS10TA3 PO (18:06)
[2024-01-12] MEDS ORDERED: ENTR1TAB PO (18:06)
[2024-01-12] MEDS ORDERED: ELIQ2.5T PO (18:08)
[2024-01-12] MEDS: LOPERAMIDE 2 MG CAPLET PO ONE (19:59)
[2024-01-12 20:48] VITALS: BP 140/77; TEMP 97.9; O2SAT 96
[2024-01-12] MEDS: CARVedilol 6.25 MG TAB PO SCH (21:05)
[2024-01-12] MEDS: APIXABAN 2.5 MG TAB (ELIQUIS) PO SCH (21:05)
[2024-01-13 05:55] VITALS: BP 142/78; TEMP 98.1; O2SAT 97
[2024-01-13 06:14] LABS: BASO % 0.5 % (0.0-1.0); EOS # 0.9 10^3/uL (0.0-0.5); EOS % 11.2 % (0.0-3.0); HEMATOCRIT 34.6 % (42.0-52.0); HEMOGLOBIN 11.3 g/dl (13.5-17.5); LYMPH # 1.3 10^3/uL (1.5-5.0); LYMPH % 14.9 % (24.0-44.0); MEAN CORPUSCULAR HEMOGLOBIN 32.2 pg (27.0-33.0); MEAN CORPUSCULAR HGB CONC 32.7 g/dl (32.0-36.5); MEAN CORPUSCULAR VOLUME 98.6 fl (80.0-96.0); MONO # 1.4 10^3/uL (0.0-0.8); MONO % 16.9 % (2.0-8.0); NEUTROPHILS # 4.7 10^3/uL (1.5-8.5); NEUTROPHILS % 56.3 % (36.0-66.0); PLATELET COUNT, AUTOMATED 212 10^3/uL (150-450); RED BLOOD COUNT 3.51 10^6/uL (4.30-6.10); WHITE BLOOD COUNT 8.4 10^3/uL (4.0-10.0)
[2024-01-13 06:38] LABS: CALCIUM LEVEL 8.4 MG/DL (8.3-10.6); CREATININE FOR GFR 2.35 MG/DL (0.70-1.30); GLOMERULAR FILTRATION RATE 28.9 (>42); MAGNESIUM LEVEL 1.4 MG/DL (1.8-2.4); POTASSIUM SERUM 3.6 MMOL/L (3.5-5.1)
[2024-01-13] MEDS: OMEPRAZOLE 20MG CAP PO SCH (08:04)
[2024-01-13] MEDS: FINASTERIDE 5MG TAB PO SCH (08:04)
[2024-01-13] MEDS: FOLIC ACID 1MG TAB PO SCH (08:04)
[2024-01-13] MEDS: MAG SULF 1GM/100ML (MAG RUN) 1 GM in IV 1 EA IV SCH (08:05)
[2024-01-13] MEDS: LEVEMIR (INSULIN DETEMIR) 1 UNITS/0.01ML SC SCH (08:07)
[2024-01-13] MEDS: LOPERAMIDE 2 MG CAPLET PO PRN (11:41)
[2024-01-13] MEDS: rifAXIMin 550 MG TAB (XIFAXAN) PO SCH (13:08)
[2024-01-13 14:00] VITALS: BP 142/78; TEMP 97.3; O2SAT 92
[2024-01-13] MEDS: ONDANSETRON 4MG 2ML VIAL IV PRN (20:44)
[2024-01-13 21:00] VITALS: BP 142/73; TEMP 97.7; O2SAT 97
[2024-01-14 05:22] VITALS: BP 149/88; TEMP 97.2; O2SAT 98
[2024-01-14 06:11] LABS: BASO # 0.1 10^3/uL (0.0-0.2); BASO % 0.5 % (0.0-1.0); EOS % 10.7 % (0.0-3.0); HEMATOCRIT 36.9 % (42.0-52.0); HEMOGLOBIN 12.1 g/dl (13.5-17.5); LYMPH # 1.8 10^3/uL (1.5-5.0); LYMPH % 18.8 % (24.0-44.0); MEAN CORPUSCULAR HEMOGLOBIN 32.5 pg (27.0-33.0); MEAN CORPUSCULAR HGB CONC 32.8 g/dl (32.0-36.5); MEAN CORPUSCULAR VOLUME 99.2 fl (80.0-96.0); MONO # 1.5 10^3/uL (0.0-0.8); NEUTROPHILS # 5.2 10^3/uL (1.5-8.5); NEUTROPHILS % 53.7 % (36.0-66.0); PLATELET COUNT, AUTOMATED 233 10^3/uL (150-450); RED BLOOD COUNT 3.72 10^6/uL (4.30-6.10); WHITE BLOOD COUNT 9.7 10^3/uL (4.0-10.0)
[2024-01-14 06:39] LABS: CALCIUM LEVEL 8.8 MG/DL (8.3-10.6); CREATININE FOR GFR 2.33 MG/DL (0.70-1.30); GLOMERULAR FILTRATION RATE 29.1 (>42); POTASSIUM SERUM 3.5 MMOL/L (3.5-5.1)
[2024-01-14 08:06] LABS: MAGNESIUM LEVEL 1.6 MG/DL (1.8-2.4)
[2024-01-14] MEDS: allopurinoL 300 MG TAB PO SCH (08:55)
[2024-01-14 08:57] VITALS: BP 149/80
[2024-01-14] MEDS: CALCITRIOL 0.25 MCG CAP (S0169) PO SCH (08:57)
[2024-01-14] MEDS ORDERED: XIFA550T PO (10:14)
[2024-01-14] MEDS ORDERED: ELIQ2.5T PO (10:14)
[2024-01-14] MEDS ORDERED: LOPE2CA PO (10:14)
[2024-01-14] MEDS ORDERED: AZIT500T5 PO (12:42)
== END 2024-01-14 13:02 | disposition home or self-care (01) | DRG 372 ==
LOC: M ED 08:46 → M ED INP 15:05 → M MSPAV 16:31
PROVIDERS: ADMIT Internal Medicine Nephrology; ATTEND Internal Medicine Nephrology
DX: A04.0 Enteropathogenic Escherichia coli infection (principal); I50.42 Chronic combined systolic (congestive) and diastolic (congestive) heart failure; I13.0 Hypertensive heart and chronic kidney disease with heart failure and stage 1 through stage 4 chronic kidney disease, or unspecified chronic kidney disease; N18.4 Chronic kidney disease, stage 4 (severe); N17.9 Acute kidney failure, unspecified; E11.22 Type 2 diabetes mellitus with diabetic chronic kidney disease; E78.5 Hyperlipidemia, unspecified; I95.1 Orthostatic hypotension; I25.10 Atherosclerotic heart disease of native coronary artery without angina pectoris; E83.42 Hypomagnesemia; I48.0 Paroxysmal atrial fibrillation; E86.0 Dehydration; M10.9 Gout, unspecified; N40.0 Benign prostatic hyperplasia without lower urinary tract symptoms; K22.70 Barrett's esophagus without dysplasia; M54.16 Radiculopathy, lumbar region; Z98.41 Cataract extraction status, right eye; Z98.42 Cataract extraction status, left eye; Z95.5 Presence of coronary angioplasty implant and graft; Z79.01 Long term (current) use of anticoagulants; Z79.4 Long term (current) use of insulin; Z79.899 Other long term (current) drug therapy; Z88.0 Allergy status to penicillin; Z88.1 Allergy status to other antibiotic agents; Z88.2 Allergy status to sulfonamides

== ENCOUNTER → 2024-01-17 | Outpatient (CLI) | payer MEDICARE ==
[~2024-01-17] MED LIST changes: +AZIT500T5 PO; +CARV6.25 PO; +ELIQ2.5T PO; +ENTR1TAB PO; +INSUHUMDS SC; +LOPE2CA PO; +TORS10TA3 PO; +XIFA550T PO
== END ==
LOC: M PLAIMG 10:13
PROVIDERS: ATTEND Internal Medicine Cardiovascular Disease
DX: I50.22 Chronic systolic (congestive) heart failure (principal); I25.10 Atherosclerotic heart disease of native coronary artery without angina pectoris; I11.0 Hypertensive heart disease with heart failure

== ENCOUNTER 2024-01-30 09:04 | Outpatient (RCR) | payer MEDICARE | END 2024-02-01 | LOC: M PT 09:04 | PROVIDERS: ATTEND Student in an Organized Health Care Education/Training Program | DX: Z95.1 Presence of aortocoronary bypass graft (principal) ==

== ENCOUNTER → 2024-02-01 | Outpatient (CLI) | payer MEDICARE | LOC: M RAD 11:21 | PROVIDERS: ATTEND Internal Medicine Cardiovascular Disease | DX: I77.810 Thoracic aortic ectasia (principal); I25.10 Atherosclerotic heart disease of native coronary artery without angina pectoris; I70.1 Atherosclerosis of renal artery ==

== ENCOUNTER → 2024-02-01 | Outpatient (CLI) | payer MEDICARE | LOC: M SLEEP HO 11:23 | PROVIDERS: ATTEND Internal Medicine Cardiovascular Disease | DX: I27.81 Cor pulmonale (chronic) (principal); I77.810 Thoracic aortic ectasia; I25.10 Atherosclerotic heart disease of native coronary artery without angina pectoris; I70.1 Atherosclerosis of renal artery; G47.33 Obstructive sleep apnea (adult) (pediatric); I65.23 Occlusion and stenosis of bilateral carotid arteries | CPT/HCPCS: 93880; G0399 ==

== ENCOUNTER → 2024-02-07 | Outpatient (CLI) | payer MEDICARE ==
[2024-02-07 15:07] LABS: ALBUMIN 2.9 G/DL (3.2-5.2); CALCIUM LEVEL 7.6 MG/DL (8.3-10.6); CREATININE FOR GFR 2.6 MG/DL (0.70-1.30); GLOMERULAR FILTRATION RATE 25.7 (>42); PHOSPHORUS LEVEL 3.1 MG/DL (2.4-5.1); POTASSIUM SERUM 3.9 MMOL/L (3.5-5.1)
== END ==
LOC: M PLALAB 08:53
PROVIDERS: ATTEND Internal Medicine Cardiovascular Disease
DX: I50.22 Chronic systolic (congestive) heart failure (principal)

== ENCOUNTER → 2024-02-18 | Outpatient (CLI) | payer MEDICARE ==
[2024-02-18 12:59] LABS: ALBUMIN 3.1 G/DL (3.2-5.2); CALCIUM LEVEL 6.6 MG/DL (8.3-10.6); CREATININE FOR GFR 3.37 MG/DL (0.70-1.30); PHOSPHORUS LEVEL 3.5 MG/DL (2.4-5.1); POTASSIUM SERUM 3.6 MMOL/L (3.5-5.1)
== END ==
LOC: M PLALAB 10:18
PROVIDERS: ATTEND Internal Medicine Cardiovascular Disease
DX: I50.22 Chronic systolic (congestive) heart failure (principal)

== ENCOUNTER → 2024-02-19 | Outpatient (CLI) | payer MEDICARE | LOC: M RAD 14:37 | PROVIDERS: ATTEND Family Medicine | DX: E04.2 Nontoxic multinodular goiter (principal) ==

== ENCOUNTER 2024-02-20 09:06 | Outpatient (RCR) | payer MEDICARE | END 2024-03-02 | LOC: M PT 09:06 | PROVIDERS: ATTEND Student in an Organized Health Care Education/Training Program | DX: Z95.1 Presence of aortocoronary bypass graft (principal) ==

== ENCOUNTER → 2024-02-25 | Outpatient (CLI) | payer MEDICARE | LOC: M CARPUL 10:03 | PROVIDERS: ATTEND Internal Medicine Cardiovascular Disease | DX: I48.0 Paroxysmal atrial fibrillation (principal); I50.22 Chronic systolic (congestive) heart failure; I27.23 Pulmonary hypertension due to lung diseases and hypoxia ==

== ENCOUNTER → 2024-02-26 | Outpatient (CLI) | payer MEDICARE ==
[~2024-02-26] MED LIST changes: +LIDOCAINE 1% MDV 20ML VIAL As Ordered ONE
[2024-02-26 13:30] VITALS: TEMP 97.6
[2024-02-26 14:10] VITALS: BP 179/87; O2SAT 96
== END ==
LOC: M IRPRO 13:14
PROVIDERS: ATTEND Otolaryngology
DX: D44.0 Neoplasm of uncertain behavior of thyroid gland (principal)

== ENCOUNTER 2024-04-06 10:21 | Emergency (ER) | payer MEDICARE ==
[~2024-04-06] VITALS: Ht 188 cm; Wt 102.7 kg
[~2024-04-06 10:21] MED LIST changes: -LIDOCAINE 1% MDV 20ML VIAL As Ordered ONE
[2024-04-06 14:22] VITALS: BP 150/78; TEMP 97.4; O2SAT 98
[2024-04-07] MEDS ORDERED: CODE30TA PO (11:22)
== END 2024-04-06 14:35 | disposition home or self-care (01) ==
LOC: M ED 10:21
DX: M51.17 Intervertebral disc disorders with radiculopathy, lumbosacral region (principal); I25.2 Old myocardial infarction; I10 Essential (primary) hypertension; Z86.79 Personal history of other diseases of the circulatory system; Z88.0 Allergy status to penicillin; Z88.2 Allergy status to sulfonamides; Z88.8 Allergy status to other drugs, medicaments and biological substances; Z79.01 Long term (current) use of anticoagulants; Z79.02 Long term (current) use of antithrombotics/antiplatelets; Z79.899 Other long term (current) drug therapy

== ENCOUNTER → 2024-05-07 | Outpatient (CLI) | payer MEDICARE ==
[~2024-05-07] MED LIST changes: +CODE30TA PO
[2024-05-07 11:48] LABS: BASO % 0.4 % (0.0-1.0); EOS # 0.3 10^3/uL (0.0-0.5); EOS % 3.3 % (0.0-3.0); HEMATOCRIT 35.5 % (42.0-52.0); HEMOGLOBIN 11.5 g/dl (13.5-17.5); LYMPH # 2.2 10^3/uL (1.5-5.0); LYMPH % 22.2 % (24.0-44.0); MEAN CORPUSCULAR HEMOGLOBIN 31.9 pg (27.0-33.0); MEAN CORPUSCULAR HGB CONC 32.4 g/dl (32.0-36.5); MEAN CORPUSCULAR VOLUME 98.3 fl (80.0-96.0); MONO # 0.9 10^3/uL (0.0-0.8); MONO % 8.9 % (2.0-8.0); NEUTROPHILS # 6.5 10^3/uL (1.5-8.5); NEUTROPHILS % 64.9 % (36.0-66.0); PLATELET COUNT, AUTOMATED 142 10^3/uL (150-450); RED BLOOD COUNT 3.61 10^6/uL (4.30-6.10)
[2024-05-07 12:05] LABS: THYROID STIMULATING HORMONE 1.355 uIU/ML (0.55-4.78)
[2024-05-07 12:16] LABS: ALBUMIN 3.4 G/DL (3.2-5.2); BILIRUBIN,TOTAL 0.6 MG/DL (0.3-1.2); CALCIUM LEVEL 8.9 MG/DL (8.3-10.6); CREATININE FOR GFR 3.04 MG/DL (0.70-1.30); GLOMERULAR FILTRATION RATE 21.4 (>42); POTASSIUM SERUM 4.5 MMOL/L (3.5-5.1); TOTAL PROTEIN 6.3 G/DL (5.7-8.2)
== END ==
LOC: M PLALAB 08:04
PROVIDERS: ATTEND Internal Medicine Cardiovascular Disease
DX: I48.0 Paroxysmal atrial fibrillation (principal); I50.22 Chronic systolic (congestive) heart failure; I25.10 Atherosclerotic heart disease of native coronary artery without angina pectoris; I11.0 Hypertensive heart disease with heart failure; I35.1 Nonrheumatic aortic (valve) insufficiency; D72.19 Other eosinophilia

== ENCOUNTER → 2024-05-07 | Outpatient (CLI) | payer MEDICARE ==
[2024-05-07 11:48] LABS: BASO % 0.4 % (0.0-1.0); EOS # 0.3 10^3/uL (0.0-0.5); EOS % 3.2 % (0.0-3.0); HEMATOCRIT 35.2 % (42.0-52.0); HEMOGLOBIN 11.5 g/dl (13.5-17.5); LYMPH # 2.1 10^3/uL (1.5-5.0); LYMPH % 21.5 % (24.0-44.0); MEAN CORPUSCULAR HEMOGLOBIN 31.8 pg (27.0-33.0); MEAN CORPUSCULAR HGB CONC 32.7 g/dl (32.0-36.5); MEAN CORPUSCULAR VOLUME 97.2 fl (80.0-96.0); MONO # 0.8 10^3/uL (0.0-0.8); MONO % 8.7 % (2.0-8.0); NEUTROPHILS # 6.4 10^3/uL (1.5-8.5); NEUTROPHILS % 65.9 % (36.0-66.0); PLATELET COUNT, AUTOMATED 148 10^3/uL (150-450); RED BLOOD COUNT 3.62 10^6/uL (4.30-6.10); WHITE BLOOD COUNT 9.7 10^3/uL (4.0-10.0)
== END ==
LOC: M PLALAB 08:07
PROVIDERS: ATTEND Family Medicine
DX: D72.19 Other eosinophilia (principal)

== ENCOUNTER → 2024-06-05 | Outpatient (CLI) | payer MEDICARE ==
[~2024-06-05] MED LIST changes: +LIDOCAINE 1% MDV 20ML VIAL As Ordered ONE
[2024-06-05 12:55] VITALS: BP 145/82; TEMP 96.4; O2SAT 98
== END ==
LOC: M IRPRO 12:45
PROVIDERS: ATTEND Otolaryngology
DX: D44.0 Neoplasm of uncertain behavior of thyroid gland (principal)

== ENCOUNTER → 2024-06-15 | Outpatient (CLI) | payer MEDICARE ==
[~2024-06-15] MED LIST changes: -LIDOCAINE 1% MDV 20ML VIAL As Ordered ONE
== END ==
LOC: M SLEEP 20:00
PROVIDERS: ATTEND Internal Medicine Pulmonary Disease
DX: G47.33 Obstructive sleep apnea (adult) (pediatric) (principal)

== ENCOUNTER → 2024-06-27 | Outpatient (CLI) | payer MEDICARE | LOC: M RAD 06:23 | PROVIDERS: ATTEND Internal Medicine Gastroenterology | DX: K86.2 Cyst of pancreas (principal); K80.20 Calculus of gallbladder without cholecystitis without obstruction ==

== ENCOUNTER → 2024-08-12 | Outpatient (CLI) | payer MEDICARE | LOC: M CARPUL 12:47 | PROVIDERS: ATTEND Internal Medicine Cardiovascular Disease | DX: I50.22 Chronic systolic (congestive) heart failure (principal); I27.81 Cor pulmonale (chronic); I77.810 Thoracic aortic ectasia ==

== ENCOUNTER → 2024-08-13 | Outpatient (REF) | payer MEDICARE ==
[2024-08-13 10:43] LABS: BASO % 0.3 % (0.0-1.0); EOS # 0.3 10^3/uL (0.0-0.5); EOS % 4.1 % (0.0-3.0); HEMATOCRIT 34.9 % (42.0-52.0); HEMOGLOBIN 11.5 g/dl (13.5-17.5); LYMPH # 2.3 10^3/uL (1.5-5.0); MEAN CORPUSCULAR HEMOGLOBIN 32.2 pg (27.0-33.0); MEAN CORPUSCULAR VOLUME 97.8 fl (80.0-96.0); MONO # 0.9 10^3/uL (0.0-0.8); MONO % 11.8 % (2.0-8.0); NEUTROPHILS # 4.3 10^3/uL (1.5-8.5); NEUTROPHILS % 54.5 % (36.0-66.0); PLATELET COUNT, AUTOMATED 161 10^3/uL (150-450); RED BLOOD COUNT 3.57 10^6/uL (4.30-6.10); WHITE BLOOD COUNT 7.9 10^3/uL (4.0-10.0)
[2024-08-13 11:21] LABS: ALBUMIN 3.2 G/DL (3.2-5.2); BILIRUBIN,TOTAL 0.4 MG/DL (0.3-1.2); CREATININE FOR GFR 3.82 MG/DL (0.70-1.30); GLOMERULAR FILTRATION RATE 16.5 (>42); POTASSIUM SERUM 4.2 MMOL/L (3.5-5.1); TOTAL PROTEIN 6.1 G/DL (5.7-8.2)
[2024-08-13 11:23] LABS: THYROID STIMULATING HORMONE 0.997 uIU/ML (0.55-4.78)
== END ==
LOC: M PLALAB 09:37
PROVIDERS: ATTEND Internal Medicine Cardiovascular Disease
DX: I48.0 Paroxysmal atrial fibrillation (principal); I50.22 Chronic systolic (congestive) heart failure; I35.1 Nonrheumatic aortic (valve) insufficiency; I11.0 Hypertensive heart disease with heart failure; E11.3213 Type 2 diabetes mellitus with mild nonproliferative diabetic retinopathy with macular edema, bilateral; N18.4 Chronic kidney disease, stage 4 (severe)

== ENCOUNTER → 2024-08-13 | Outpatient (REF) | payer MEDICARE ==
[2024-08-13 11:20] LABS: CALCIUM LEVEL 9.3 MG/DL (8.3-10.6); CREATININE FOR GFR 3.84 MG/DL (0.70-1.30); GLOMERULAR FILTRATION RATE 16.4 (>42); POTASSIUM SERUM 4.3 MMOL/L (3.5-5.1)
[2024-08-13 11:28] LABS: HEMOGLOBIN A1c 6.2 % (4.0-6.0)
== END ==
LOC: M SFHCPLAZ 10:19
PROVIDERS: ATTEND Family Medicine
DX: E11.3213 Type 2 diabetes mellitus with mild nonproliferative diabetic retinopathy with macular edema, bilateral (principal); N18.4 Chronic kidney disease, stage 4 (severe)

== ENCOUNTER → 2024-09-12 | Outpatient (CLI) | payer MEDICARE | LOC: M RAD 14:46 | PROVIDERS: ATTEND Otolaryngology | DX: D44.0 Neoplasm of uncertain behavior of thyroid gland (principal) ==

== ENCOUNTER → 2024-09-15 | Outpatient (CLI) | payer MEDICARE | LOC: M RAD 12:23 | PROVIDERS: ATTEND Internal Medicine Cardiovascular Disease | DX: I50.22 Chronic systolic (congestive) heart failure (principal); I48.0 Paroxysmal atrial fibrillation ==

== ENCOUNTER 2024-09-24 19:14 | Observation (INO) | payer MEDICARE ==
[~2024-09-24] VITALS: Ht 188 cm; Wt 102.7 kg
[2024-09-24 20:01] LABS: BASO % 0.2 % (0.0-1.0); EOS # 0.3 10^3/uL (0.0-0.5); EOS % 2.9 % (0.0-3.0); HEMATOCRIT 33.4 % (42.0-52.0); LYMPH # 2.3 10^3/uL (1.5-5.0); LYMPH % 24.2 % (24.0-44.0); MEAN CORPUSCULAR HEMOGLOBIN 32.5 pg (27.0-33.0); MEAN CORPUSCULAR HGB CONC 32.9 g/dl (32.0-36.5); MEAN CORPUSCULAR VOLUME 98.8 fl (80.0-96.0); MONO # 1.1 10^3/uL (0.0-0.8); MONO % 11.5 % (2.0-8.0); NEUTROPHILS # 5.7 10^3/uL (1.5-8.5); NEUTROPHILS % 61.1 % (36.0-66.0); PLATELET COUNT, AUTOMATED 145 10^3/uL (150-450); RED BLOOD COUNT 3.38 10^6/uL (4.30-6.10); WHITE BLOOD COUNT 9.3 10^3/uL (4.0-10.0)
[2024-09-24 20:13] LABS: INR 1.16; PROTHROMBIN TIME 15.1 SECONDS (12.5-14.5)
[2024-09-24 20:23] LABS: ALBUMIN 3.3 G/DL (3.2-5.2); BILIRUBIN,DIRECT 0.1 MG/DL (<0.4); BILIRUBIN,TOTAL 0.4 MG/DL (0.3-1.2); CALCIUM LEVEL 8.6 MG/DL (8.3-10.6); CREATININE FOR GFR 3.27 MG/DL (0.70-1.30); GLOMERULAR FILTRATION RATE 19.7 (>42); POTASSIUM SERUM 3.6 MMOL/L (3.5-5.1); TOTAL PROTEIN 6.1 G/DL (5.7-8.2)
[2024-09-24 20:25] LABS: THYROID STIMULATING HORMONE 1.409 uIU/ML (0.55-4.78)
[2024-09-24 20:34] LABS: MB/CK RELATIVE INDEX 2.77 (< OR =4)
[2024-09-24 21:34] LABS: CK-MB VALUE MASS 1.7 NG/ML (<3.6); MB/CK RELATIVE INDEX 1.86 (< OR =4)
[2024-09-24] MEDS: NS 500 ML IV ONE (22:25)
[2024-09-25] MEDS ORDERED: GLUCAGON INJ 1MG VIAL SC PRN (02:00)
[2024-09-25] MEDS ORDERED: GLUCOSE 4 GM CHEW PO PRN (02:00)
[2024-09-25] MEDS ORDERED: DEXTROSE 50% 50ML SYRINGE IV PRN (02:00)
[2024-09-25 03:00] VITALS: BP 164/78; TEMP 97.8; O2SAT 96
[2024-09-25 05:12] LABS: HEMATOCRIT 31.9 % (42.0-52.0); HEMOGLOBIN 10.6 g/dl (13.5-17.5); MEAN CORPUSCULAR HEMOGLOBIN 32.8 pg (27.0-33.0); MEAN CORPUSCULAR HGB CONC 33.2 g/dl (32.0-36.5); MEAN CORPUSCULAR VOLUME 98.8 fl (80.0-96.0); PLATELET COUNT, AUTOMATED 141 10^3/uL (150-450); RED BLOOD COUNT 3.23 10^6/uL (4.30-6.10); WHITE BLOOD COUNT 9.6 10^3/uL (4.0-10.0)
[2024-09-25 05:42] LABS: ALBUMIN 3.1 G/DL (3.2-5.2); BILIRUBIN,TOTAL 0.3 MG/DL (0.3-1.2); CALCIUM LEVEL 8.8 MG/DL (8.3-10.6); CREATININE FOR GFR 3.05 MG/DL (0.70-1.30); GLOMERULAR FILTRATION RATE 21.4 (>42); POTASSIUM SERUM 4.4 MMOL/L (3.5-5.1); TOTAL PROTEIN 5.7 G/DL (5.7-8.2)
[2024-09-25 07:39] VITALS: BP 149/81; TEMP 98; O2SAT 97
[2024-09-25 08:00] VITALS: BP_SYST 150; BP_SYST 159; BP_SYST 165; BP_DIAS 57; BP_DIAS 74; BP_DIAS 77
[2024-09-25] MEDS: LEVEMIR (INSULIN DETEMIR) 1 UNITS/0.01ML SC SCH (08:43)
[2024-09-25] MEDS: INSULIN LISPRO (NovoLOG) PER UNIT SC SCH (08:44)
[2024-09-25] MEDS ORDERED: TORS5TAB2 PO (10:53)
[2024-09-25] MEDS ORDERED: INSULIN LISPRO (NovoLOG) PER UNIT SC SCH (21:00)
== END 2024-09-25 11:46 | disposition home or self-care (01) ==
LOC: M ED 19:14 → M ED INP 19:15 → M PCU 09-25 02:56
PROVIDERS: ADMIT Student in an Organized Health Care Education/Training Program; ATTEND Student in an Organized Health Care Education/Training Program
DX: I95.2 Hypotension due to drugs (principal); R42 Dizziness and giddiness; I25.10 Atherosclerotic heart disease of native coronary artery without angina pectoris; Z95.1 Presence of aortocoronary bypass graft; I48.0 Paroxysmal atrial fibrillation; N18.4 Chronic kidney disease, stage 4 (severe); I12.9 Hypertensive chronic kidney disease with stage 1 through stage 4 chronic kidney disease, or unspecified chronic kidney disease; M10.9 Gout, unspecified; N40.0 Benign prostatic hyperplasia without lower urinary tract symptoms; Z88.2 Allergy status to sulfonamides; Z88.1 Allergy status to other antibiotic agents; Z88.8 Allergy status to other drugs, medicaments and biological substances; Z79.01 Long term (current) use of anticoagulants; Z79.899 Other long term (current) drug therapy
CPT/HCPCS: 36415; 69210; 70450; 80047; 80053; 82077; 82150; 82248; 82550; 82553; 83605; 83880; 84443; 84484; 85025; 85027; 85610; 93005; 96374; 97161; 99285; G0378; G0463; J1815

== ENCOUNTER → 2024-12-15 | Outpatient (CLI) | payer MEDICARE ==
[~2024-12-15] MED LIST changes: +TORS5TAB2 PO
[2024-12-15 13:32] LABS: ALBUMIN 3.2 G/DL (3.2-5.2); CALCIUM LEVEL 8.9 MG/DL (8.3-10.6); CREATININE FOR GFR 2.96 MG/DL (0.70-1.30); GLOMERULAR FILTRATION RATE 21.1 (>42); PHOSPHORUS LEVEL 4.1 MG/DL (2.4-5.1); POTASSIUM SERUM 4.8 MMOL/L (3.5-5.1)
== END ==
LOC: M PLALAB 09:38
PROVIDERS: ATTEND Internal Medicine Cardiovascular Disease
DX: I50.22 Chronic systolic (congestive) heart failure (principal); I11.0 Hypertensive heart disease with heart failure

== ENCOUNTER → 2024-12-15 | Outpatient (CLI) | payer MEDICARE ==
[2024-12-15 13:30] LABS: ALBUMIN 3.2 G/DL (3.2-5.2); BILIRUBIN,TOTAL 0.4 MG/DL (0.3-1.2); CALCIUM LEVEL 8.9 MG/DL (8.3-10.6); CHOLESTEROL RISK RATIO 2.4 (<5); CREATININE FOR GFR 2.97 MG/DL (0.70-1.30); HDL CHOLESTEROL 41.5 MG/DL (>40); LDL CHOLESTEROL 43.1 MG/DL (<100); MAGNESIUM LEVEL 1.5 MG/DL (1.8-2.4); NON-HDL-C 58.5 MG/DL; POTASSIUM SERUM 4.8 MMOL/L (3.5-5.1); TOTAL PROTEIN 5.8 G/DL (5.7-8.2)
== END ==
LOC: M PLALAB 09:45
PROVIDERS: ATTEND Registered Nurse
DX: I50.22 Chronic systolic (congestive) heart failure (principal); I25.10 Atherosclerotic heart disease of native coronary artery without angina pectoris; I11.0 Hypertensive heart disease with heart failure

== ENCOUNTER → 2025-03-23 | Outpatient (CLI) | payer MEDICARE ==
[~2025-03-23] MED LIST changes: -AMIO200T49 PO; +AMIO200T54 PO; -NADO20TA PO; +NADO20TA38 PO
== END ==
LOC: M RAD 14:27
PROVIDERS: ATTEND Otolaryngology
DX: D44.0 Neoplasm of uncertain behavior of thyroid gland (principal)

== ENCOUNTER 2025-04-26 13:36 | Inpatient (IN) | payer MEDICARE ==
[~2025-04-26] VITALS: Ht 188 cm; Wt 105.9 kg
[2025-04-26] MEDS ORDERED: CALC1CAP31 PO (13:55)
[2025-04-26] MEDS ORDERED: FARX1TAB5 PO (13:55)
[2025-04-26 15:02] LABS: BASO # 0.0 10^3/uL (0.0-0.2); BASO % 0.2 % (0.0-1.0); EOS # 0.7 10^3/uL (0.0-0.5); EOS % 5.1 % (0.0-3.0); LYMPH # 1.2 10^3/uL (1.5-5.0); LYMPH % 8.8 % (24.0-44.0); MONO # 0.9 10^3/uL (0.0-0.8); MONO % 6.6 % (2.0-8.0); NEUTROPHILS # 10.5 10^3/uL (1.5-8.5); NEUTROPHILS % 78.9 % (36.0-66.0); PLATELET COUNT, AUTOMATED 213 10^3/uL (150-450)
[2025-04-26 15:09] LABS: ERYTHROCYTE SEDIMENTATION RATE 40 mm/hr (0-20)
[2025-04-26 15:13] LABS: INR 1.16
[2025-04-26 15:34] LABS: C REACTIVE PROTEIN QUANTITATIV 4.38 MG/DL (<1.0); CPK CREATINE PHOSPHOKINASE 764.0 U/L (46-171)
[2025-04-26 15:35] LABS: ALT/SGPT 98.0 U/L (7.0-40); AST/SGOT 103.0 U/L (<34); CALCIUM LEVEL 11.9 MG/DL (8.3-10.6); CARBON DIOXIDE LEVEL 22.0 MMOL/L (20-31); CHLORIDE LEVEL 105.0 MMOL/L (98-107); CK-MB VALUE MASS 78.6 NG/ML (<3.6); CREATININE FOR GFR 4.17 MG/DL (0.70-1.30); GLOMERULAR FILTRATION RATE 14.0 (>42); MB/CK RELATIVE INDEX 10.28 (< OR =4); POTASSIUM SERUM 4.5 MMOL/L (3.5-5.1); SODIUM LEVEL 140.0 MMOL/L (136-145)
[2025-04-26] MEDS: FUROSEMIDE 100 MG/10 ML VIAL IV ONE (17:32)
[2025-04-26] MEDS ORDERED: GLUCOSE 4 GM CHEW PO PRN (17:45)
[2025-04-26] MEDS ORDERED: GLUCAGON INJ 1 MG VIAL SC PRN (17:45)
[2025-04-26] MEDS ORDERED: MAALOX 30 ML SUSP *UDC PO PRN (17:45)
[2025-04-26] MEDS ORDERED: MOM 30 ML SUSPENSION UDC PO PRN (17:45)
[2025-04-26] MEDS ORDERED: DEXTROSE 50% 50 ML SYRINGE IV PRN (17:45)
[2025-04-26 17:52] LABS: APPEARANCE, URINE CLEAR (CLEAR); BACTERIA, URINE AUTO NEGATIVE (NEGATIVE); BILIRUBIN, URINE AUTO NEGATIVE (NEGATIVE); BLOOD, URINE BLOOD 2+ (NEGATIVE); GLUCOSE, URINE (UA) AUTO 3+ mg/dL (NEGATIVE); KETONE, URINE AUTO NEGATIVE (NEGATIVE); LEUKOCYTE ESTERASE, URINE AUTO NEGATIVE (NEGATIVE); MUCUS, URINE SMALL (NEGATIVE); NITRITE, URINE AUTO NEGATIVE (NEGATIVE); PROTEIN, URINE AUTO NEGATIVE (NEGATIVE); RBC, URINE AUTO 0 /HPF (0-3); SPECIFIC GRAVITY URINE AUTO 1.005 (1.002-1.035); SQUAMOUS EPITHELIAL CELL UR AU 0 /HPF (0-6); UROBILINOGEN, URINE AUTO 0.2 mg/dL (0.0-2.0); WBC, URINE AUTO 0 /HPF (0-3)
[2025-04-26 18:05] LABS: CK-MB VALUE MASS 70.9 NG/ML (<3.6)
[2025-04-26 18:06] LABS: CPK CREATINE PHOSPHOKINASE 722.0 U/L (46-171); MB/CK RELATIVE INDEX 9.81 (< OR =4)
[2025-04-26] MEDS: hydrALAZINE 20 MG/ML 1 ML VIAL IV PRN (19:12)
[2025-04-26 20:37] VITALS: BP 200/94; TEMP 97.5; O2SAT 96
[2025-04-26 20:44] VITALS: BP 184/82; TEMP 97.6; O2SAT 98
[2025-04-26] MEDS: INSULIN LISPRO (NovoLOG) PER UNIT SC SCH (21:00)
[2025-04-26] MEDS: DOCUSATE SODIUM 100 MG CAPSULE PO SCH (21:00)
[2025-04-26] MEDS: ATORVASTATIN 20 MG TAB PO SCH (21:00)
[2025-04-26] MEDS ORDERED: HYDR-161 PO (21:11)
[2025-04-26] MEDS ORDERED: ENTR1TAB7 PO (21:11)
[2025-04-26] MEDS ORDERED: BENA25TA5 PO (21:11)
[2025-04-26] MEDS ORDERED: TORS5TAB2 PO (21:11)
[2025-04-26] MEDS ORDERED: ATOR80TA59 PO (21:11)
[2025-04-26] MEDS ORDERED: ACET-897 PO (21:11)
[2025-04-26] MEDS ORDERED: HOME MED LIST COMPLETE! XX SCH (21:15)
[2025-04-26] MEDS ORDERED: **hydrALAZINE** 10 MG TAB PO PRN (21:30)
[2025-04-26] MEDS: APIXABAN 2.5 MG TAB PO SCH (21:55)
[2025-04-26] MEDS: AMIODARONE 200 MG TAB PO SCH (21:56)
[2025-04-26] MEDS ORDERED: PILL CUTTER 1 EACH XX PRN (22:00)
[2025-04-26 22:56] VITALS: BP 165/74; TEMP 98.2; O2SAT 97
[2025-04-27 03:23] VITALS: BP 125/72; TEMP 98; O2SAT 96
[2025-04-27 06:10] LABS: INR 1.22
[2025-04-27 06:23] LABS: C REACTIVE PROTEIN QUANTITATIV 4.71 MG/DL (<1.0); IRON (FE) 41.0 UG/DL (65-175); PERCENT SATURATION 23.0 % (19.7-50.0)
[2025-04-27 06:24] LABS: ALT/SGPT 98.0 U/L (7.0-40); AST/SGOT 100.0 U/L (<34); CALCIUM LEVEL 11.5 MG/DL (8.3-10.6); CARBON DIOXIDE LEVEL 21.0 MMOL/L (20-31); CHLORIDE LEVEL 105.0 MMOL/L (98-107); CREATININE FOR GFR 3.96 MG/DL (0.70-1.30); GLOMERULAR FILTRATION RATE 14.9 (>42); MAGNESIUM LEVEL 1.6 MG/DL (1.8-2.4); POTASSIUM SERUM 4.0 MMOL/L (3.5-5.1); SODIUM LEVEL 141.0 MMOL/L (136-145)
[2025-04-27 07:30] LABS: BASO # 0.0 10^3/uL (0.0-0.2); BASO % 0.2 % (0.0-1.0); EOS # 0.7 10^3/uL (0.0-0.5); EOS % 4.4 % (0.0-3.0); LYMPH # 1.1 10^3/uL (1.5-5.0); LYMPH % 7.1 % (24.0-44.0); MONO # 1.1 10^3/uL (0.0-0.8); MONO % 7.1 % (2.0-8.0); NEUTROPHILS # 12.1 10^3/uL (1.5-8.5); NEUTROPHILS % 80.6 % (36.0-66.0); PLATELET COUNT, AUTOMATED 229 10^3/uL (150-450)
[2025-04-27] MEDS ORDERED: TORSEMIDE 10 MG TABLET PO SCH (09:00)
[2025-04-27] MEDS ORDERED: CALCITRIOL 0.25 MCG CAP (S0169) PO SCH (09:00)
[2025-04-27 09:06] VITALS: TEMP 97.3; O2SAT 100
[2025-04-27] MEDS: DAPAGLIFLOZIN PROPANEDIOL 10 MG TABLET PO SCH (09:21)
[2025-04-27] MEDS: FINASTERIDE 5 MG TAB PO SCH (09:22)
[2025-04-27] MEDS: PANTOPRAZOLE 40MG TAB PO SCH (09:22)
[2025-04-27] MEDS: INSULIN GLARGINE-YFGN 1 UNITS/0.01 ML SC SCH (09:23)
[2025-04-27] MEDS: INSULIN LISPRO (NovoLOG) PER UNIT SC SCH (09:23)
[2025-04-27] MEDS: ISOSORBIDE MONONITRATE 60 MG XR TAB PO SCH (09:30)
[2025-04-27] MEDS: predniSONE 10 MG TAB PO SCH ×2 (11:26→18:08)
[2025-04-27 12:00] VITALS: BP 138/74; TEMP 97.2; O2SAT 95
[2025-04-27] MEDS: ACETAMINOPHEN 325 MG TAB PO PRN (13:51)
[2025-04-27] MEDS: HumuLIN N INSULIN (NovoLIN N) PER UNIT SC ONE (13:52)
[2025-04-27 16:00] VITALS: BP 150/78; TEMP 97.8; O2SAT 96
[2025-04-27] MEDS: HumuLIN N INSULIN (NovoLIN N) PER UNIT SC SCH (18:08)
[2025-04-27 19:11] VITALS: BP 153/80; TEMP 97.2
[2025-04-27 22:49] VITALS: BP 154/77; TEMP 97.3; O2SAT 97
[2025-04-27] MEDS: INSULIN LISPRO (NovoLOG) PER UNIT SC ONE (23:26)
[2025-04-28 04:00] VITALS: BP 161/75; TEMP 97.4; O2SAT 94
[2025-04-28 05:50] LABS: BASO # 0.0 10^3/uL (0.0-0.2); BASO % 0.1 % (0.0-1.0); EOS # 0.0 10^3/uL (0.0-0.5); EOS % 0.0 % (0.0-3.0); LYMPH # 0.9 10^3/uL (1.5-5.0); LYMPH % 5.3 % (24.0-44.0); MONO # 0.6 10^3/uL (0.0-0.8); MONO % 3.7 % (2.0-8.0); NEUTROPHILS # 14.6 10^3/uL (1.5-8.5); NEUTROPHILS % 90.2 % (36.0-66.0); PLATELET COUNT, AUTOMATED 237 10^3/uL (150-450)
[2025-04-28 06:23] LABS: ALT/SGPT 86.0 U/L (7.0-40); AST/SGOT 62.0 U/L (<34); CALCIUM LEVEL 12.2 MG/DL (8.3-10.6); CARBON DIOXIDE LEVEL 23.0 MMOL/L (20-31); CHLORIDE LEVEL 103.0 MMOL/L (98-107); CREATININE FOR GFR 3.83 MG/DL (0.70-1.30); GLOMERULAR FILTRATION RATE 15.5 (>42); MAGNESIUM LEVEL 2.0 MG/DL (1.8-2.4); POTASSIUM SERUM 4.2 MMOL/L (3.5-5.1); SODIUM LEVEL 140.0 MMOL/L (136-145)
[2025-04-28 07:49] VITALS: BP 188/88; TEMP 97.4; O2SAT 96
[2025-04-28] MEDS: INSULIN GLARGINE-YFGN 1 UNITS/0.01 ML SC SCH (08:40)
[2025-04-28 12:00] VITALS: BP 153/77; TEMP 97.4; O2SAT 97
[2025-04-28] MEDS: ENTRESTO 24-26 MG TABLET (SACUBITRIL/VALSARTAN) PO SCH (12:17)
[2025-04-28] MEDS: CINACALCET 30 MG TAB PO SCH (12:17)
[2025-04-28] MEDS: PRAZOSIN 1 MG CAP PO SCH (12:17)
[2025-04-28 12:35] LABS: PTH INTACT 22.8 PG/ML (18.5-88.0)
[2025-04-28 15:48] VITALS: BP 111/58; TEMP 98; O2SAT 94
[2025-04-28] MEDS: HumuLIN N INSULIN (NovoLIN N) PER UNIT SC SCH (18:09)
[2025-04-28 19:29] VITALS: BP 147/67; TEMP 97.4; O2SAT 96
[2025-04-28] MEDS: INSULIN LISPRO (NovoLOG) PER UNIT SC ONE (21:58)
[2025-04-28 23:10] VITALS: BP 139/65; TEMP 97.7; O2SAT 97
[2025-04-29] VITALS (7 sets, daily range): BP systolic 128–161; BP diastolic 64–76; TEMP 97.4–97.8; O2SAT 93–96
[2025-04-29 03:15] LABS: PROTEIN,TOTAL 12 HR 168.6 MG/12HR (25-75); URINE TOTAL PROTEIN 28.1 MG/DL (0-14)
[2025-04-29 05:27] LABS: BASO # 0.0 10^3/uL (0.0-0.2); BASO % 0.1 % (0.0-1.0); EOS # 0.0 10^3/uL (0.0-0.5); EOS % 0.0 % (0.0-3.0); LYMPH # 0.8 10^3/uL (1.5-5.0); LYMPH % 4.9 % (24.0-44.0); MONO # 1.0 10^3/uL (0.0-0.8); MONO % 6.3 % (2.0-8.0); NEUTROPHILS # 14.6 10^3/uL (1.5-8.5); NEUTROPHILS % 88.0 % (36.0-66.0); PLATELET COUNT, AUTOMATED 220 10^3/uL (150-450)
[2025-04-29 05:54] LABS: ALT/SGPT 79.0 U/L (7.0-40); AST/SGOT 38.0 U/L (<34); CALCIUM LEVEL 12.2 MG/DL (8.3-10.6); CARBON DIOXIDE LEVEL 23.0 MMOL/L (20-31); CHLORIDE LEVEL 103.0 MMOL/L (98-107); CREATININE FOR GFR 3.69 MG/DL (0.70-1.30); GLOMERULAR FILTRATION RATE 16.2 (>42); MAGNESIUM LEVEL 1.9 MG/DL (1.8-2.4); POTASSIUM SERUM 4.4 MMOL/L (3.5-5.1); SODIUM LEVEL 140.0 MMOL/L (136-145)
[2025-04-29] MEDS: INSULIN GLARGINE-YFGN 1 UNITS/0.01 ML SC ONE (10:24)
[2025-04-29] MEDS: HumuLIN N INSULIN (NovoLIN N) PER UNIT SC ONE (10:24)
[2025-04-29] MEDS: FUROSEMIDE 40 MG/4 ML VIAL IV ONE (13:49)
[2025-04-29] MEDS ORDERED: HumuLIN N INSULIN (NovoLIN N) PER UNIT SC SCH (17:30)
[2025-04-29 17:39] LABS: PROTEIN, TOTAL SO 5.3 g/dL (6.1-8.1)
[2025-04-29] MEDS: predniSONE 10 MG TAB PO SCH (17:53)
[2025-04-29] MEDS: HumuLIN N INSULIN (NovoLIN N) PER UNIT SC SCH (17:54)
[2025-04-29] MEDS: PRAZOSIN 1 MG CAP PO SCH (20:32)
[2025-04-29] MEDS: ENTRESTO 24-26 MG TABLET (SACUBITRIL/VALSARTAN) PO SCH (20:33)
[2025-04-29] MEDS: ALPRAZolam 0.5 MG TAB PO PRN (22:15)
[2025-04-29] MEDS: INSULIN LISPRO (NovoLOG) PER UNIT SC STA (22:16)
[2025-04-30 04:35] VITALS: BP 125/66; TEMP 97.4; O2SAT 94
[2025-04-30 05:50] LABS: BASO # 0.0 10^3/uL (0.0-0.2); BASO % 0.1 % (0.0-1.0); EOS # 0.0 10^3/uL (0.0-0.5); EOS % 0.0 % (0.0-3.0); LYMPH # 0.8 10^3/uL (1.5-5.0); LYMPH % 4.7 % (24.0-44.0); MONO # 1.2 10^3/uL (0.0-0.8); MONO % 7.5 % (2.0-8.0); NEUTROPHILS # 13.9 10^3/uL (1.5-8.5); NEUTROPHILS % 87.0 % (36.0-66.0); PLATELET COUNT, AUTOMATED 225 10^3/uL (150-450)
[2025-04-30 06:14] LABS: ALT/SGPT 72.0 U/L (7.0-40); AST/SGOT 25.0 U/L (<34); CALCIUM LEVEL 11.7 MG/DL (8.3-10.6); CARBON DIOXIDE LEVEL 24.0 MMOL/L (20-31); CHLORIDE LEVEL 104.0 MMOL/L (98-107); CREATININE FOR GFR 3.47 MG/DL (0.70-1.30); GLOMERULAR FILTRATION RATE 17.4 (>42); MAGNESIUM LEVEL 1.9 MG/DL (1.8-2.4); POTASSIUM SERUM 4.0 MMOL/L (3.5-5.1); SODIUM LEVEL 141.0 MMOL/L (136-145)
[2025-04-30 08:35] VITALS: BP 126/62; TEMP 97.2; O2SAT 94
[2025-04-30] MEDS: INSULIN GLARGINE-YFGN 1 UNITS/0.01 ML SC SCH (08:46)
[2025-04-30 09:03] VITALS: BP 126/62
[2025-04-30] MEDS ORDERED: PRED10TA2 PO (09:38)
[2025-04-30] MEDS ORDERED: PRAZ1CAP PO (09:38)
[2025-04-30 13:42] LABS: PROTEIN CREATININE RATIO 317 mg/g creat (25-148); T PROTEIN CREATININE RATIO 0.317 (0.025-0.148); UPEP CREATININE 63 mg/dL (20-320); UPEP TOTAL PROTEIN 20 mg/dL (5-25)
[2025-04-30 14:42] LABS: LYME TOTAL ANTIBODY CIA <= 0.90 Index (<=0.90)
[2025-05-01 06:38] LABS: ALBUMIN SO 2.7 g/dL (3.8-4.8); ALPHA 1 GLOBULINS SO 0.5 g/dL (0.2-0.3); ALPHA 2 GLOBULINS SO 0.8 g/dL (0.5-0.9); BETA 2 GLOBULIN SO 0.3 g/dL (0.2-0.5); BETA GLOBULIN SO 0.3 g/dL (0.4-0.6); GAMMA GLOBULINS SO 0.7 g/dL (0.8-1.7)
[2025-05-01 09:58] LABS: UPEP ALBUMIN 47 %; URINE ALPHA 1 GLOBULIN 8 %; URINE ALPHA 2 GLOBULIN 15 %; URINE BETA GLOBULIN 14 %; URINE GAMMA GLOBULIN 17 %
[2025-05-03 01:16] LABS: ANTI-HISTONE ANTIBODIES < 1.0 U (<1.0)
== END 2025-04-30 15:01 | disposition home or self-care (01) | DRG 683 ==
LOC: M ED 13:36 → M ED INP 17:41 → M PCU 20:33
PROVIDERS: ADMIT Internal Medicine; ATTEND Internal Medicine
DX: N17.9 Acute kidney failure, unspecified (principal); I24.89 Other forms of acute ischemic heart disease; I13.0 Hypertensive heart and chronic kidney disease with heart failure and stage 1 through stage 4 chronic kidney disease, or unspecified chronic kidney disease; I48.21 Permanent atrial fibrillation; I50.42 Chronic combined systolic (congestive) and diastolic (congestive) heart failure; E87.70 Fluid overload, unspecified; N18.4 Chronic kidney disease, stage 4 (severe); L93.2 Other local lupus erythematosus; I16.0 Hypertensive urgency; K21.9 Gastro-esophageal reflux disease without esophagitis; E11.22 Type 2 diabetes mellitus with diabetic chronic kidney disease; I48.0 Paroxysmal atrial fibrillation; Z95.1 Presence of aortocoronary bypass graft; M54.59 Other low back pain; N40.0 Benign prostatic hyperplasia without lower urinary tract symptoms; E11.65 Type 2 diabetes mellitus with hyperglycemia; Z79.01 Long term (current) use of anticoagulants; D64.9 Anemia, unspecified; M10.30 Gout due to renal impairment, unspecified site; Z98.41 Cataract extraction status, right eye; Z98.42 Cataract extraction status, left eye; Z88.0 Allergy status to penicillin; Z88.8 Allergy status to other drugs, medicaments and biological substances; Z88.2 Allergy status to sulfonamides; Z79.899 Other long term (current) drug therapy; Z79.4 Long term (current) use of insulin; E78.5 Hyperlipidemia, unspecified; D72.829 Elevated white blood cell count, unspecified; K59.00 Constipation, unspecified; E83.52 Hypercalcemia; N25.81 Secondary hyperparathyroidism of renal origin; G47.00 Insomnia, unspecified; B35.1 Tinea unguium

== ENCOUNTER 2025-05-07 11:31 | Inpatient (IN) | payer MEDICARE ==
[~2025-05-07] VITALS: Ht 188 cm; Wt 97.6 kg
[~2025-05-07 11:31] MED LIST changes: +ACET-897 PO; +ATOR80TA59 PO; +BENA25TA5 PO; +ENTR1TAB7 PO; +FARX1TAB5 PO; +HYDR-161 PO; +PRAZ1CAP PO; +PRED10TA2 PO
[2025-05-07 12:53] LABS: BASO # 0.0 10^3/uL (0.0-0.2); BASO % 0.1 % (0.0-1.0); EOS # 0.0 10^3/uL (0.0-0.5); EOS % 0.2 % (0.0-3.0); LYMPH # 0.6 10^3/uL (1.5-5.0); LYMPH % 3.3 % (24.0-44.0); MONO # 2.0 10^3/uL (0.0-0.8); MONO % 10.2 % (2.0-8.0); NEUTROPHILS # 16.7 10^3/uL (1.5-8.5); NEUTROPHILS % 84.8 % (36.0-66.0); PLATELET COUNT, AUTOMATED 211 10^3/uL (150-450)
[2025-05-07 13:36] LABS: ALT/SGPT 37.0 U/L (7.0-40); AST/SGOT 39.0 U/L (<34); CALCIUM LEVEL 8.5 MG/DL (8.3-10.6); CARBON DIOXIDE LEVEL 16.0 MMOL/L (20-31); CHLORIDE LEVEL 103.0 MMOL/L (98-107); CREATININE FOR GFR 5.12 MG/DL (0.70-1.30); GLOMERULAR FILTRATION RATE 10.9 (>42); MAGNESIUM LEVEL 1.9 MG/DL (1.8-2.4); POTASSIUM SERUM 5.7 MMOL/L (3.5-5.1); SODIUM LEVEL 135.0 MMOL/L (136-145)
[2025-05-07] MEDS ORDERED: HOME MED LIST COMPLETE! XX SCH (13:45)
[2025-05-07] MEDS: NS 500 ML IV ONE (14:10)
[2025-05-07 15:15] VITALS: TEMP 97.8; O2SAT 98
[2025-05-07 15:27] VITALS: BP 146/68
[2025-05-07] MEDS ORDERED: GLUCAGON INJ 1 MG VIAL SC PRN (15:45)
[2025-05-07] MEDS ORDERED: DEXTROSE 50% 50 ML SYRINGE IV PRN (15:45)
[2025-05-07] MEDS ORDERED: GLUCOSE 4 GM CHEW PO PRN (15:45)
[2025-05-07] MEDS: INSULIN LISPRO (NovoLOG) PER UNIT SC SCH ×2 (18:32→20:56)
[2025-05-07] MEDS: FUROSEMIDE 100 MG/10 ML VIAL IV ONE (19:05)
[2025-05-07 19:49] VITALS: BP 164/77; TEMP 97.1; O2SAT 98
[2025-05-07] MEDS: ATORVASTATIN 20 MG TAB PO SCH (20:55)
[2025-05-07] MEDS: INSULIN GLARGINE-YFGN 1 UNITS/0.01 ML SC SCH (20:56)
[2025-05-07] MEDS: predniSONE 10 MG TAB PO SCH (20:56)
[2025-05-07] MEDS: AMIODARONE 200 MG TAB PO SCH (20:56)
[2025-05-07 22:10] VITALS: BP 176/81
[2025-05-07] MEDS: PRAZOSIN 1 MG CAP PO SCH (22:14)
[2025-05-08] VITALS (19 sets, daily range): BP systolic 130–167; BP diastolic 66–77; PULSE 65–68; TEMP 97–97.7; O2SAT 94–98
[2025-05-08] MEDS: RAMELTEON 8 MG TAB PO PRN (01:20)
[2025-05-08 06:42] LABS: BASO # 0.0 10^3/uL (0.0-0.2); BASO % 0.1 % (0.0-1.0); EOS # 0.1 10^3/uL (0.0-0.5); EOS % 0.6 % (0.0-3.0); LYMPH # 0.9 10^3/uL (1.5-5.0); LYMPH % 5.7 % (24.0-44.0); MONO # 1.9 10^3/uL (0.0-0.8); MONO % 12.2 % (2.0-8.0); NEUTROPHILS # 12.7 10^3/uL (1.5-8.5); NEUTROPHILS % 80.6 % (36.0-66.0); PLATELET COUNT, AUTOMATED 211 10^3/uL (150-450)
[2025-05-08 07:06] LABS: CALCIUM LEVEL 8.6 MG/DL (8.3-10.6); CARBON DIOXIDE LEVEL 16.0 MMOL/L (20-31); CHLORIDE LEVEL 103.0 MMOL/L (98-107); CREATININE FOR GFR 5.03 MG/DL (0.70-1.30); GLOMERULAR FILTRATION RATE 11.2 (>42); POTASSIUM SERUM 4.2 MMOL/L (3.5-5.1); SODIUM LEVEL 137.0 MMOL/L (136-145)
[2025-05-08] MEDS: INSULIN GLARGINE-YFGN 1 UNITS/0.01 ML SC SCH (08:53)
[2025-05-08] MEDS: FINASTERIDE 5 MG TAB PO SCH (08:54)
[2025-05-08] MEDS: OMEPRAZOLE 20MG CAP PO SCH (08:54)
[2025-05-08] MEDS: SODIUM BICARBONATE 325 MG TAB PO SCH (08:54)
[2025-05-08] MEDS ORDERED: HEPARIN 1,000 UNITS/ML 10 ML VIAL (FOR RADIOLOGY & DIALYSIS ONLY) IV PRN (10:30)
[2025-05-08] MEDS ORDERED: SODIUM CHLORIDE 0.9% 1000 ML IV PRN (10:30)
[2025-05-08] MEDS ORDERED: MIRALAX *UNIT DOSE* 17 GM PACKET PO PRN (10:50)
[2025-05-08 11:35] LABS: HEPATITIS B SURFACE ANTIBODY NEGATIVE (POSITIVE)
[2025-05-08 12:08] LABS: HEPATITIS C VIRUS ABY INDEX < 0.02 INDEX (<0.8)
[2025-05-08] MEDS: NS (Normal Saline) 0.9% 1,000 ML IV SCH (16:00)
[2025-05-08] MEDS: ceFAZolin SODIUM 2 GM in DEXTROSE 5% (D5W) ADV/MINI-BAG 50 ML IV ONE (16:29)
[2025-05-08] MEDS: HEPARIN 1,000 UNITS/ML 10 ML VIAL (FOR RADIOLOGY & DIALYSIS ONLY) IV PRN (16:48)
[2025-05-08] MEDS: LIDOCAINE 1% MDV 20 ML VIAL SC SCH (16:51)
[2025-05-08] MEDS: MANNITOL 25% 12.5 GM/50 ML VIAL IV ONE (17:35)
[2025-05-08] MEDS: HEPARIN 1,000 UNITS/ML 10 ML VIAL (FOR RADIOLOGY & DIALYSIS ONLY) XX SCH (17:36)
[2025-05-08] MEDS: SENNA 8.6 MG TAB PO SCH (22:03)
[2025-05-08] MEDS: LanTUS (INSULIN GLARGINE INJ) 1 UNITS/0.01 ML SC SCH (22:04)
[2025-05-09] VITALS (20 sets, daily range): BP systolic 138–159; BP diastolic 67–78; TEMP 97–97.8; O2SAT 86–97
[2025-05-09] MEDS ORDERED: SODIUM CHLORIDE 0.9% 1000 ML IV PRN (06:00)
[2025-05-09] MEDS ORDERED: HEPARIN 1,000 UNITS/ML 10 ML VIAL (FOR RADIOLOGY & DIALYSIS ONLY) IV PRN (06:00)
[2025-05-09] MEDS ORDERED: HEPARIN 1,000 UNITS/ML 10 ML VIAL (FOR RADIOLOGY & DIALYSIS ONLY) XX SCH (06:00)
[2025-05-09 08:38] LABS: BASO # 0.0 10^3/uL (0.0-0.2); BASO % 0.1 % (0.0-1.0); EOS # 0.0 10^3/uL (0.0-0.5); EOS % 0.2 % (0.0-3.0); LYMPH # 0.4 10^3/uL (1.5-5.0); LYMPH % 2.9 % (24.0-44.0); MONO # 1.1 10^3/uL (0.0-0.8); MONO % 7.9 % (2.0-8.0); NEUTROPHILS # 12.6 10^3/uL (1.5-8.5); NEUTROPHILS % 88.2 % (36.0-66.0); PLATELET COUNT, AUTOMATED 189 10^3/uL (150-450)
[2025-05-09 09:06] LABS: CALCIUM LEVEL 8.0 MG/DL (8.3-10.6); CARBON DIOXIDE LEVEL 21.0 MMOL/L (20-31); CHLORIDE LEVEL 105.0 MMOL/L (98-107); CREATININE FOR GFR 3.5 MG/DL (0.70-1.30); GLOMERULAR FILTRATION RATE 17.2 (>42); POTASSIUM SERUM 3.8 MMOL/L (3.5-5.1); SODIUM LEVEL 140.0 MMOL/L (136-145)
[2025-05-09] MEDS: ONDANSETRON 4MG 2ML VIAL IV PRN (18:42)
[2025-05-09] MEDS: APIXABAN 2.5 MG TAB PO SCH (21:34)
[2025-05-09] MEDS: ENTRESTO 24-26 MG TABLET (SACUBITRIL/VALSARTAN) PO SCH (21:34)
[2025-05-10] VITALS (12 sets, daily range): BP systolic 81–154; BP diastolic 51–67; TEMP 97.5–97.8; O2SAT 92–98
[2025-05-10 05:51] LABS: BASO # 0.0 10^3/uL (0.0-0.2); BASO % 0.1 % (0.0-1.0); EOS # 0.0 10^3/uL (0.0-0.5); EOS % 0.1 % (0.0-3.0); LYMPH # 0.6 10^3/uL (1.5-5.0); LYMPH % 4.0 % (24.0-44.0); MONO # 1.5 10^3/uL (0.0-0.8); MONO % 9.5 % (2.0-8.0); NEUTROPHILS # 13.4 10^3/uL (1.5-8.5); NEUTROPHILS % 85.5 % (36.0-66.0); PLATELET COUNT, AUTOMATED 195 10^3/uL (150-450)
[2025-05-10 06:13] LABS: CALCIUM LEVEL 8.3 MG/DL (8.3-10.6); CARBON DIOXIDE LEVEL 25.0 MMOL/L (20-31); CHLORIDE LEVEL 107.0 MMOL/L (98-107); CREATININE FOR GFR 2.82 MG/DL (0.70-1.30); GLOMERULAR FILTRATION RATE 22.3 (>42); POTASSIUM SERUM 4.3 MMOL/L (3.5-5.1); SODIUM LEVEL 142.0 MMOL/L (136-145)
[2025-05-10] MEDS: FINASTERIDE 5 MG TAB PO SCH (08:08)
[2025-05-10] MEDS: LanTUS (INSULIN GLARGINE INJ) 1 UNITS/0.01 ML SC SCH (09:53)
[2025-05-11 04:15] VITALS: BP 157/72; TEMP 97.4; O2SAT 94
[2025-05-11] MEDS ORDERED: HEPARIN 1,000 UNITS/ML 10 ML VIAL (FOR RADIOLOGY & DIALYSIS ONLY) IV PRN (06:00)
[2025-05-11] MEDS ORDERED: SODIUM CHLORIDE 0.9% 1000 ML IV PRN (06:00)
[2025-05-11 08:29] VITALS: BP 152/68; TEMP 97.1; O2SAT 93
[2025-05-11 10:41] LABS: KETONE, URINE AUTO RFX NEGATIVE (NEGATIVE); NITRITE, URINE AUTO RFX NEGATIVE (NEGATIVE); RBC, URINE AUTO RFX TNTC /HPF (0-3); SQUAM EPITHELIAL CELL UR AURFX 0 /HPF (0-6)
[2025-05-11 10:47] LABS: LEUKOCYTE ESTERASE UR AUTO RFX 2+ (NEGATIVE); WBC, URINE AUTO RFX TNTC /HPF (0-3)
[2025-05-11 11:06] VITALS: BP 160/82
[2025-05-11] MEDS: ACETAMINOPHEN 325 MG TAB PO PRN (12:16)
[2025-05-11] MEDS: HEPARIN 1,000 UNITS/ML 10 ML VIAL (FOR RADIOLOGY & DIALYSIS ONLY) XX SCH (17:43)
[2025-05-11 17:47] LABS: BASO # 0.0 10^3/uL (0.0-0.2); BASO % 0.1 % (0.0-1.0); EOS # 0.1 10^3/uL (0.0-0.5); EOS % 0.5 % (0.0-3.0); LYMPH # 0.6 10^3/uL (1.5-5.0); LYMPH % 2.9 % (24.0-44.0); MONO # 1.6 10^3/uL (0.0-0.8); MONO % 7.4 % (2.0-8.0); NEUTROPHILS # 19.0 10^3/uL (1.5-8.5); NEUTROPHILS % 88.5 % (36.0-66.0); PLATELET COUNT, AUTOMATED 183 10^3/uL (150-450)
[2025-05-11 18:11] LABS: CALCIUM LEVEL 8.5 MG/DL (8.3-10.6); CARBON DIOXIDE LEVEL 22.0 MMOL/L (20-31); CHLORIDE LEVEL 105.0 MMOL/L (98-107); CREATININE FOR GFR 3.03 MG/DL (0.70-1.30); GLOMERULAR FILTRATION RATE 20.5 (>42); POTASSIUM SERUM 4.3 MMOL/L (3.5-5.1); SODIUM LEVEL 140.0 MMOL/L (136-145)
[2025-05-11 20:08] VITALS: BP 182/84; TEMP 97.4; O2SAT 95
[2025-05-11 23:19] VITALS: BP 176/81; TEMP 98.1; O2SAT 96
[2025-05-12 03:27] VITALS: BP 170/79; TEMP 98; O2SAT 95
[2025-05-12 05:39] LABS: BASO # 0.0 10^3/uL (0.0-0.2); BASO % 0.1 % (0.0-1.0); EOS # 0.4 10^3/uL (0.0-0.5); EOS % 2.3 % (0.0-3.0); LYMPH # 1.1 10^3/uL (1.5-5.0); LYMPH % 5.8 % (24.0-44.0); MONO # 2.3 10^3/uL (0.0-0.8); MONO % 11.6 % (2.0-8.0); NEUTROPHILS # 15.6 10^3/uL (1.5-8.5); NEUTROPHILS % 79.6 % (36.0-66.0); PLATELET COUNT, AUTOMATED 173 10^3/uL (150-450)
[2025-05-12 05:57] LABS: CALCIUM LEVEL 7.9 MG/DL (8.3-10.6); CARBON DIOXIDE LEVEL 24.0 MMOL/L (20-31); CHLORIDE LEVEL 106.0 MMOL/L (98-107); CREATININE FOR GFR 2.3 MG/DL (0.70-1.30); GLOMERULAR FILTRATION RATE 28.5 (>42); POTASSIUM SERUM 3.9 MMOL/L (3.5-5.1); SODIUM LEVEL 141.0 MMOL/L (136-145)
[2025-05-12] MEDS: LOSARTAN 25 MG TAB PO ONE (07:15)
[2025-05-12 07:59] VITALS: BP 145/68; TEMP 97; O2SAT 97
[2025-05-12 15:51] VITALS: BP 158/72; TEMP 97.4; O2SAT 98
[2025-05-12 19:48] VITALS: BP 168/76; TEMP 97.5; O2SAT 98
[2025-05-12 23:25] VITALS: BP 153/73; TEMP 98.2; O2SAT 98
[2025-05-13 03:55] VITALS: BP 138/64; TEMP 97.6; O2SAT 96
[2025-05-13] MEDS ORDERED: SODIUM CHLORIDE 0.9% 1000 ML IV PRN (06:00)
[2025-05-13] MEDS ORDERED: HEPARIN 1,000 UNITS/ML 10 ML VIAL (FOR RADIOLOGY & DIALYSIS ONLY) IV PRN (06:00)
[2025-05-13 06:05] LABS: BASO # 0.0 10^3/uL (0.0-0.2); BASO % 0.1 % (0.0-1.0); EOS # 0.5 10^3/uL (0.0-0.5); EOS % 2.5 % (0.0-3.0); LYMPH # 1.1 10^3/uL (1.5-5.0); LYMPH % 5.9 % (24.0-44.0); MONO # 1.8 10^3/uL (0.0-0.8); MONO % 10.1 % (2.0-8.0); NEUTROPHILS # 14.3 10^3/uL (1.5-8.5); NEUTROPHILS % 80.8 % (36.0-66.0); PLATELET COUNT, AUTOMATED 156 10^3/uL (150-450)
[2025-05-13 06:21] LABS: CALCIUM LEVEL 7.9 MG/DL (8.3-10.6); CARBON DIOXIDE LEVEL 24.0 MMOL/L (20-31); CHLORIDE LEVEL 108.0 MMOL/L (98-107); CREATININE FOR GFR 3.13 MG/DL (0.70-1.30); GLOMERULAR FILTRATION RATE 19.7 (>42); MAGNESIUM LEVEL 1.6 MG/DL (1.8-2.4); POTASSIUM SERUM 4.0 MMOL/L (3.5-5.1); SODIUM LEVEL 143.0 MMOL/L (136-145)
[2025-05-13 08:00] VITALS: BP 134/65; TEMP 97.1; O2SAT 97
[2025-05-13] MEDS: MAGNESIUM OXIDE 400 MG TAB PO ONE (08:05)
[2025-05-13] MEDS ORDERED: LOSARTAN 25 MG TAB PO SCH (09:00)
[2025-05-13] MEDS: HEPARIN 1,000 UNITS/ML 10 ML VIAL (FOR RADIOLOGY & DIALYSIS ONLY) XX SCH (09:35)
[2025-05-13 12:53] VITALS: BP 136/66; TEMP 97.8; O2SAT 97
[2025-05-13 15:43] VITALS: BP 139/66; TEMP 98; O2SAT 96
[2025-05-13] MEDS ORDERED: LEVO1TAB38 PO (17:09)
[2025-05-13] MEDS ORDERED: OXYB5TAB14 PO (17:09)
[2025-05-13] MEDS ORDERED: CARV6.25 PO (17:09)
[2025-05-13] MEDS ORDERED: ENTR1TAB PO (17:09)
[2025-05-13] MEDS: ERTAPENEM SODIUM 1 GM in NS MINI-BAG PLUS 50 ML IV SCH (18:31)
[2025-05-13 19:40] VITALS: BP 147/66; TEMP 97.5; O2SAT 98
[2025-05-14 04:15] VITALS: BP 142/65; TEMP 96.1; O2SAT 97
[2025-05-14 05:45] LABS: BASO # 0.0 10^3/uL (0.0-0.2); BASO % 0.1 % (0.0-1.0); EOS # 0.6 10^3/uL (0.0-0.5); EOS % 3.3 % (0.0-3.0); LYMPH # 1.0 10^3/uL (1.5-5.0); LYMPH % 5.6 % (24.0-44.0); MONO # 1.7 10^3/uL (0.0-0.8); MONO % 9.5 % (2.0-8.0); NEUTROPHILS # 14.5 10^3/uL (1.5-8.5); NEUTROPHILS % 81.1 % (36.0-66.0); PLATELET COUNT, AUTOMATED 146 10^3/uL (150-450)
[2025-05-14 06:06] LABS: C REACTIVE PROTEIN QUANTITATIV 5.54 MG/DL (<1.0)
[2025-05-14 06:08] LABS: CALCIUM LEVEL 8.3 MG/DL (8.3-10.6); CARBON DIOXIDE LEVEL 24.0 MMOL/L (20-31); CHLORIDE LEVEL 107.0 MMOL/L (98-107); CREATININE FOR GFR 2.99 MG/DL (0.70-1.30); GLOMERULAR FILTRATION RATE 20.8 (>42); MAGNESIUM LEVEL 1.6 MG/DL (1.8-2.4); POTASSIUM SERUM 4.4 MMOL/L (3.5-5.1); SODIUM LEVEL 142.0 MMOL/L (136-145)
[2025-05-14 08:12] VITALS: BP 170/77; TEMP 97.6; O2SAT 97
[2025-05-14] MEDS: TAMSULOSIN 0.4 MG CAP PO SCH (09:11)
[2025-05-14 12:26] VITALS: BP 113/68; TEMP 97.6; O2SAT 97
[2025-05-14 16:39] VITALS: BP 151/70; TEMP 97.6; O2SAT 98
[2025-05-14] MEDS ORDERED: ERTAPENEM SODIUM 500 MG in NS 50 ML IV SCH (18:00)
[2025-05-14] MEDS: MEROPENEM 1 GM in IV 1 EA IV SCH (18:01)
[2025-05-14 20:31] VITALS: BP 164/74; TEMP 97.8; O2SAT 98
[2025-05-14 20:34] VITALS: BP 162/88
[2025-05-15 03:52] VITALS: BP 151/72; TEMP 97.9; O2SAT 98
[2025-05-15] MEDS ORDERED: HEPARIN 1,000 UNITS/ML 10 ML VIAL (FOR RADIOLOGY & DIALYSIS ONLY) IV PRN (06:00)
[2025-05-15] MEDS ORDERED: SODIUM CHLORIDE 0.9% 1000 ML IV PRN (06:00)
[2025-05-15 06:31] LABS: MAGNESIUM LEVEL 1.6 MG/DL (1.8-2.4)
[2025-05-15] MEDS: MAG SULF 1GM/100ML (MAG RUN) 1 GM in IV 1 EA IV ONE (06:57)
[2025-05-15 07:30] LABS: CALCIUM LEVEL 8.0 MG/DL (8.3-10.6); CARBON DIOXIDE LEVEL 22.0 MMOL/L (20-31); CHLORIDE LEVEL 108.0 MMOL/L (98-107); CREATININE FOR GFR 3.31 MG/DL (0.70-1.30); GLOMERULAR FILTRATION RATE 18.4 (>42); POTASSIUM SERUM 4.5 MMOL/L (3.5-5.1); SODIUM LEVEL 142.0 MMOL/L (136-145)
[2025-05-15 07:37] VITALS: BP 166/90; TEMP 97.6; O2SAT 95
[2025-05-15 07:37] LABS: BASO # 0.0 10^3/uL (0.0-0.2); BASO % 0.1 % (0.0-1.0); EOS # 0.7 10^3/uL (0.0-0.5); EOS % 3.7 % (0.0-3.0); LYMPH # 0.8 10^3/uL (1.5-5.0); LYMPH % 4.2 % (24.0-44.0); MONO # 1.6 10^3/uL (0.0-0.8); MONO % 8.8 % (2.0-8.0); NEUTROPHILS # 15.1 10^3/uL (1.5-8.5); NEUTROPHILS % 82.7 % (36.0-66.0); PLATELET COUNT, AUTOMATED 135 10^3/uL (150-450)
[2025-05-15 07:50] VITALS: BP 166/90
[2025-05-15] MEDS: HEPARIN 1,000 UNITS/ML 10 ML VIAL (FOR RADIOLOGY & DIALYSIS ONLY) XX SCH (10:00)
[2025-05-15] MEDS: DARBEPOETIN 100 MCG/0.5 ML *DIALYSIS* SYRINGE IV SCH (10:34)
[2025-05-15] MEDS ORDERED: TAMS-18 PO (11:32)
[2025-05-15] MEDS ORDERED: OXYB5TAB14 PO (11:32)
[2025-05-15 12:37] VITALS: BP 158/72; TEMP 97.1; O2SAT 94
[2025-05-15] MEDS: MEROPENEM 1 GM in IV 1 EA IV SCH (13:35)
== END 2025-05-15 16:35 | disposition home health service (06) | DRG 674 ==
LOC: M ED 11:31 → EDBD 11:31 → M ED INP 13:58 → M PCU 14:52
PROVIDERS: ADMIT Internal Medicine Nephrology; ATTEND Student in an Organized Health Care Education/Training Program
PROC: 05HM33Z Insertion of Infusion Device into Right Internal Jugular Vein, Percutaneous Approach (ICD-10-PCS; 2025-05-08)
PROC: 0JH63XZ Insertion of Tunneled Vascular Access Device into Chest Subcutaneous Tissue and Fascia, Percutaneous Approach (ICD-10-PCS; principal; 2025-05-08 15:00)
PROC: 5A1D70Z Performance of Urinary Filtration, Intermittent, Less than 6 Hours Per Day (ICD-10-PCS; 2025-05-09)
DX: N17.9 Acute kidney failure, unspecified (principal); N39.0 Urinary tract infection, site not specified; I13.2 Hypertensive heart and chronic kidney disease with heart failure and with stage 5 chronic kidney disease, or end stage renal disease; I50.42 Chronic combined systolic (congestive) and diastolic (congestive) heart failure; N18.6 End stage renal disease; E78.00 Pure hypercholesterolemia, unspecified; E87.5 Hyperkalemia; M10.9 Gout, unspecified; R53.1 Weakness; I25.10 Atherosclerotic heart disease of native coronary artery without angina pectoris; G47.33 Obstructive sleep apnea (adult) (pediatric); E21.1 Secondary hyperparathyroidism, not elsewhere classified; I25.2 Old myocardial infarction; I48.0 Paroxysmal atrial fibrillation; Z79.4 Long term (current) use of insulin; E11.22 Type 2 diabetes mellitus with diabetic chronic kidney disease; N40.1 Benign prostatic hyperplasia with lower urinary tract symptoms; K21.9 Gastro-esophageal reflux disease without esophagitis; Z95.1 Presence of aortocoronary bypass graft; E87.70 Fluid overload, unspecified; B96.20 Unspecified Escherichia coli [E. coli] as the cause of diseases classified elsewhere; Z79.899 Other long term (current) drug therapy; R31.9 Hematuria, unspecified; Z79.52 Long term (current) use of systemic steroids; Z88.0 Allergy status to penicillin; Z88.2 Allergy status to sulfonamides; Z88.8 Allergy status to other drugs, medicaments and biological substances; Z98.41 Cataract extraction status, right eye; Z98.42 Cataract extraction status, left eye

== ENCOUNTER 2025-05-16 11:32 | Outpatient (CLI) | payer MEDICARE ==
[~2025-05-16 11:32] MED LIST changes: +LEVO1TAB38 PO; +OXYB5TAB14 PO; +TAMS-18 PO
[2025-05-16 11:53] VITALS: BP 172/71; O2SAT 96
[2025-05-16] MEDS: MEROPENEM 1 GM in IV 1 EA IV ONE (11:59)
[2025-05-16 12:44] VITALS: BP 143/64; O2SAT 97
== END 2025-05-16 12:46 | disposition home or self-care (01) ==
LOC: M OPCLI4PR 11:32 → M MS4PR 11:38 → M OPCLI4PR 12:46
PROVIDERS: ATTEND Student in an Organized Health Care Education/Training Program
DX: N39.0 Urinary tract infection, site not specified (principal); B96.20 Unspecified Escherichia coli [E. coli] as the cause of diseases classified elsewhere; Z88.0 Allergy status to penicillin; Z88.1 Allergy status to other antibiotic agents; Z88.2 Allergy status to sulfonamides; Z88.8 Allergy status to other drugs, medicaments and biological substances
CPT/HCPCS: 96365; J2184

== ENCOUNTER 2025-05-17 11:17 | Outpatient (CLI) | payer MEDICARE ==
[2025-05-17] MEDS: MEROPENEM 1 GM in IV 1 EA IV ONE (11:31)
[2025-05-17 11:33] VITALS: BP 104/54; O2SAT 98
[2025-05-17 12:18] VITALS: BP 119/60; O2SAT 97
== END 2025-05-17 12:19 | disposition home or self-care (01) ==
LOC: M OPCLI4PR 11:17 → M MS4PR 11:20 → M OPCLI4PR 12:19
PROVIDERS: ATTEND Student in an Organized Health Care Education/Training Program
DX: N39.0 Urinary tract infection, site not specified (principal); B96.20 Unspecified Escherichia coli [E. coli] as the cause of diseases classified elsewhere; Z88.0 Allergy status to penicillin; Z88.1 Allergy status to other antibiotic agents; Z88.2 Allergy status to sulfonamides; Z88.8 Allergy status to other drugs, medicaments and biological substances
CPT/HCPCS: 96365; J2184

== ENCOUNTER 2025-05-18 13:28 | Outpatient (CLI) | payer MEDICARE ==
[~2025-05-18] VITALS: Ht 188 cm; Wt 97.6 kg
[2025-05-18 13:40] VITALS: BP 156/70; O2SAT 95
[2025-05-18] MEDS: MEROPENEM 1 GM in IV 1 EA IV ONE (14:03)
[2025-05-18 14:50] VITALS: BP 157/73; O2SAT 97
== END 2025-05-18 14:50 | disposition home or self-care (01) ==
LOC: M INFU 13:28
PROVIDERS: ATTEND Student in an Organized Health Care Education/Training Program
DX: N39.0 Urinary tract infection, site not specified (principal); B96.20 Unspecified Escherichia coli [E. coli] as the cause of diseases classified elsewhere; Z88.0 Allergy status to penicillin; Z88.1 Allergy status to other antibiotic agents; Z88.2 Allergy status to sulfonamides; Z88.8 Allergy status to other drugs, medicaments and biological substances
CPT/HCPCS: 96365; J2184

== ENCOUNTER 2025-05-19 12:39 | Outpatient (CLI) | payer MEDICARE ==
[2025-05-19] MEDS: MEROPENEM 1 GM in IV 1 EA IV ONE (13:23)
[2025-05-19 13:24] VITALS: BP 108/58; O2SAT 95
[2025-05-19 13:50] VITALS: BP 127/61; O2SAT 97
== END 2025-05-19 14:00 | disposition home or self-care (01) ==
LOC: M INFU 12:39
PROVIDERS: ATTEND Student in an Organized Health Care Education/Training Program
DX: N39.0 Urinary tract infection, site not specified (principal); B96.20 Unspecified Escherichia coli [E. coli] as the cause of diseases classified elsewhere; Z88.0 Allergy status to penicillin; Z88.1 Allergy status to other antibiotic agents; Z88.2 Allergy status to sulfonamides; Z88.8 Allergy status to other drugs, medicaments and biological substances
CPT/HCPCS: 96365; J2184

== ENCOUNTER → 2025-06-01 | Outpatient (CLI) | payer MEDICARE ==
[2025-06-01 14:07] LABS: APPEARANCE, URINE TURBID (CLEAR); BACTERIA, URINE AUTO 1+ (NEGATIVE); BILIRUBIN, URINE AUTO NEGATIVE (NEGATIVE); BLOOD, URINE BLOOD 1+ (NEGATIVE); GLUCOSE, URINE (UA) AUTO 2+ mg/dL (NEGATIVE); KETONE, URINE AUTO NEGATIVE (NEGATIVE); LEUKOCYTE ESTERASE, URINE AUTO 3+ (NEGATIVE); NITRITE, URINE AUTO NEGATIVE (NEGATIVE); PROTEIN, URINE AUTO 2+ mg/dL (NEGATIVE); RBC, URINE AUTO 13 /HPF (0-3); SPECIFIC GRAVITY URINE AUTO 1.016 (1.002-1.035); SQUAMOUS EPITHELIAL CELL UR AU 9 /HPF (0-6); UROBILINOGEN, URINE AUTO 0.2 mg/dL (0.0-2.0); WBC, URINE AUTO TNTC /HPF (0-3)
== END ==
LOC: M PLALAB 11:46
PROVIDERS: ATTEND Internal Medicine Nephrology
DX: N39.0 Urinary tract infection, site not specified (principal)

== ENCOUNTER 2025-06-17 10:29 | Outpatient (RCR) | payer MEDICARE ==
[2025-06-22] MEDS ORDERED: CARV3.12 PO (12:02)
[2025-06-22] MEDS ORDERED: HYDR-4571 PO ×2 (13:07→13:09)
== END 2025-07-03 ==
LOC: M PT 10:29
PROVIDERS: ATTEND Student in an Organized Health Care Education/Training Program
DX: R26.89 Other abnormalities of gait and mobility (principal)

== ENCOUNTER 2025-06-22 09:48 | Emergency (ER) | payer MEDICARE ==
[~2025-06-22] VITALS: Ht 188 cm; Wt 100.0 kg
[2025-06-22 09:52] VITALS: TEMP 97.2; O2SAT 98
[2025-06-22 10:07] VITALS: BP 140/90
[2025-06-22] MEDS ORDERED: CARV3.12 PO (12:02)
[2025-06-22] MEDS ORDERED: HYDR-4571 PO ×2 (13:07→13:09)
== END 2025-06-22 13:32 | disposition home or self-care (01) ==
LOC: M ED 09:48
DX: S40.012A Contusion of left shoulder, initial encounter (principal); W01.198A Fall on same level from slipping, tripping and stumbling with subsequent striking against other object, initial encounter; M25.712 Osteophyte, left shoulder; M19.012 Primary osteoarthritis, left shoulder; E11.9 Type 2 diabetes mellitus without complications; N18.6 End stage renal disease; Z86.79 Personal history of other diseases of the circulatory system; Z88.0 Allergy status to penicillin; Z88.2 Allergy status to sulfonamides; Z88.1 Allergy status to other antibiotic agents; Z88.8 Allergy status to other drugs, medicaments and biological substances; Z79.01 Long term (current) use of anticoagulants; Y92.238 Other place in hospital as the place of occurrence of the external cause; Y93.89 Activity, other specified; Y99.9 Unspecified external cause status; Z79.1 Long term (current) use of non-steroidal anti-inflammatories (NSAID); Z79.02 Long term (current) use of antithrombotics/antiplatelets; Z79.899 Other long term (current) drug therapy; Z79.4 Long term (current) use of insulin

== ENCOUNTER 2025-07-22 10:28 | Outpatient (RCR) | payer MEDICARE ==
[~2025-07-22 10:28] MED LIST changes: +CARV3.12 PO; +HYDR-4571 PO
== END 2025-08-02 ==
LOC: M PT 10:28
PROVIDERS: ATTEND Student in an Organized Health Care Education/Training Program
DX: R26.89 Other abnormalities of gait and mobility (principal)

== ENCOUNTER → 2025-08-11 | Outpatient (CLI) | payer MEDICARE | LOC: M PLAIMG 13:08 | PROVIDERS: ATTEND Physical Medicine & Rehabilitation | DX: M51.360 Other intervertebral disc degeneration, lumbar region with discogenic back pain only (principal); M51.369 Other intervertebral disc degeneration, lumbar region without mention of lumbar back pain or lower extremity pain; M51.35 Other intervertebral disc degeneration, thoracolumbar region ==

== ENCOUNTER 2025-08-20 10:30 | Outpatient (RCR) | payer MEDICARE | END 2025-09-02 | LOC: M PT 10:30 | PROVIDERS: ATTEND Student in an Organized Health Care Education/Training Program | DX: R26.89 Other abnormalities of gait and mobility (principal) ==

== ENCOUNTER → 2025-08-21 | Outpatient (CLI) | payer MEDICARE ==
[~2025-08-21] MED LIST changes: +PROHANCE 279.3MG/ML 15ML VIAL ONE; +PROHANCE 279.3MG/ML 5ML VIAL ONE
== END ==
LOC: M PLAIMG 13:04
PROVIDERS: ATTEND Physical Medicine & Rehabilitation
DX: M47.896 Other spondylosis, lumbar region (principal); M48.062 Spinal stenosis, lumbar region with neurogenic claudication; M51.360 Other intervertebral disc degeneration, lumbar region with discogenic back pain only; M51.46 Schmorl's nodes, lumbar region; M51.44 Schmorl's nodes, thoracic region
CPT/HCPCS: 72149; A9579

== ENCOUNTER → 2025-08-25 | Outpatient (CLI) | payer MEDICARE ==
[~2025-08-25] MED LIST changes: -PROHANCE 279.3MG/ML 15ML VIAL ONE; -PROHANCE 279.3MG/ML 5ML VIAL ONE
[2025-08-25 13:36] LABS: PLATELET COUNT, AUTOMATED 169 10^3/uL (150-450)
[2025-08-25 14:02] LABS: INR 1.11
== END ==
LOC: M PLALAB 10:52
PROVIDERS: ATTEND Physical Medicine & Rehabilitation
DX: Z01.818 Encounter for other preprocedural examination (principal); Z79.01 Long term (current) use of anticoagulants